=== PATIENT | male | born 1975 | race Caucasian/White ===

== ENCOUNTER 2018-04-09 09:27 | Emergency (ER) | payer SELFPAY, MEDICAID ==
[2018-04-09] MEDS: diazePAM 5 MG TABLET PO (10:23)
[2018-04-09] MEDS: ONDANSETRON PF 4 MG/2 ML VIAL. IV (10:24)
[2018-04-09] MEDS: fentaNYL PF VIAL 100 MCG/2 ML VIAL IV (10:26)
[2018-04-09 10:36] LABS: ADD MAN DIFF? NO
[2018-04-09 10:39] LABS: BASO % 1 % (0-3); EOS # 0.2 x10^3/uL (0.0-0.7); EOS % 3 % (0-3); HEMATOCRIT 33.6 % (39.0-53.0); HEMOGLOBIN 11.4 g/dL (13.0-17.5); LYMPH # 2.2 x10^3/uL (1.0-4.8); LYMPH % 27 % (24-48); MEAN CORPUSCULAR HEMOGLOBIN 29 pg (25-35); MEAN CORPUSCULAR HGB CONC 34 g/dL (31-37); MEAN CORPUSCULAR VOLUME 86 fL (79-100); MONO # 0.4 x10^3/uL (0.0-1.1); MONO % 5 % (0-9); NEUT # 5.5 x10^3uL (1.8-7.7); NEUT % 65 % (31-73); PLATELET COUNT 265 x10^3/uL (140-400); RED BLOOD COUNT 3.91 x10^6/uL (4.30-5.70); WHITE BLOOD COUNT 8.3 x10^3/uL (4.0-11.0)
[2018-04-09 10:46] LABS: BILIRUBIN,URINE NEGATIVE (NEG); CLARITY,URINE CLEAR; COLOR,URINE YELLOW; GLUCOSE,URINE NEGATIVE (NEG); NITRITE,URINE NEGATIVE (NEG); PH,URINE 5.5; PROTEIN,URINE NEGATIVE (NEG-TRACE); UROBILINOGEN,URINE 0.2 mg/dL (0.2 mg/dL)
[2018-04-09 10:52] LABS: AMPHETAMINE/METHAMPHETAMINE NEG (NEG); ANION GAP 11 (6-14); BARBITURATES NEG (NEG); BENZODIAZEPINES NEG (NEG); BLOOD UREA NITROGEN 17 mg/dL (8-26); BUN/CREATININE RATIO 17 (6-20); CALCIUM 9.2 mg/dL (8.5-10.1); CANNABINOIDS NEG (NEG); CARBON DIOXIDE 28 mmol/L (21-32); CHLORIDE 99 mmol/L (98-107); COCAINE NEG (NEG); ETHANOL, URINE NEG (NEG); GFR 81.2; GLUCOSE 146 mg/dL (70-99); METHADONE NEG (NEG); OPIATES NEG (NEG); PHENCYCLIDINE NEG (NEG); POTASSIUM 4.1 mmol/L (3.5-5.1); SODIUM 138 mmol/L (136-145)
[2018-04-09 10:53] LABS: ETHANOL < 10 mg/dL (0-10)
[2018-04-09 10:54] LABS: SQUAMOUS EPITHELIAL CELL,UR MOD /LPF
[2018-04-09 10:55] LABS: BACTERIA,URINE 0 /HPF (0-FEW); RBC,URINE 0 /HPF (0-2); WBC,URINE RARE /HPF (0-4)
[2018-04-09 10:58] LABS: ALBUMIN 3.2 g/dL (3.4-5.0); ALBUMIN/GLOBULIN RATIO 0.6 (1.0-1.7); ALK PHOS 89 U/L (46-116); ALT (SGPT) 44 U/L (16-63); AST (SGOT) 27 U/L (15-37); LIPASE 854 U/L (73-393); TOTAL BILIRUBIN 0.4 mg/dL (0.2-1.0); TOTAL PROTEIN 8.3 g/dL (6.4-8.2)
[2018-04-09] MEDS: CLINDAMYCIN HCL 150 MG CAPSULE. PO (12:39)
[2018-04-09] MEDS: HYDROcodone/APAP 5/325MG 1 TAB TABLET PO (12:40)
== END 2018-04-09 12:40 | disposition home or self-care (01) ==
LOC: ER 09:27
DX: M54.41 Lumbago with sciatica, right side (principal); L03.311 Cellulitis of abdominal wall; J44.9 Chronic obstructive pulmonary disease, unspecified; E78.00 Pure hypercholesterolemia, unspecified; I10 Essential (primary) hypertension; E11.40 Type 2 diabetes mellitus with diabetic neuropathy, unspecified; Z86.2 Personal history of diseases of the blood and blood-forming organs and certain disorders involving the immune mechanism
CPT/HCPCS: 36415; 74176; 80053; 80307; 81001; 83690; 85025; 96374; 96375; 99285-25; G0480; J2405; J3010

== ENCOUNTER 2018-09-01 11:05 | Outpatient (CLI) | payer OTHER ==
[2018-09-01] VITALS (12 sets, daily range): BP systolic 115–159; BP diastolic 49–73
[~2018-09-01] VITALS: Ht 167.6 cm; Wt 148.8 kg
[~2018-09-01 11:05] MED LIST: ASPI-630 PO; BUDE10.2 IH; CLIN150C14 PO; DIAZ5TAB PO; FERR325T58 PO; FLUT1DIS3 IH; HYDR-3164 PO; LISI1TAB7 PO; LORA10TA3 PO; LOVA20TA2 PO; PROVENTIL HFA6.7 GM IH
[2018-09-01 11:32] LABS: HEMATOCRIT 32.8 % (39.0-53.0); HEMOGLOBIN 11.3 g/dL (13.0-17.5); RED BLOOD COUNT 3.67 x10^6/uL (4.30-5.70); RED CELL DISTRIBUTION WIDTH 16.2 % (11.5-14.5); WHITE BLOOD COUNT 10.1 x10^3/uL (4.0-11.0)
[2018-09-01] MEDS ORDERED: PITA4TAB2 PO (11:34)
[2018-09-01] MEDS ORDERED: SITA1TAB11 PO (11:38)
[2018-09-01] MEDS ORDERED: METO25TA4 PO (11:38)
[2018-09-01] MEDS ORDERED: MULT1TAB52 PO (11:38)
[2018-09-01] MEDS ORDERED: INSU100I13 SQ (11:38)
[2018-09-01] MEDS ORDERED: CYCL10TA2 PO (11:38)
[2018-09-01] MEDS ORDERED: GABA-586 PO (11:38)
[2018-09-01 11:41] LABS: CREATININE 1.3 mg/dL (0.7-1.3); GFR 59.7; POTASSIUM 4.9 mmol/L (3.5-5.1)
[2018-09-01 11:46] LABS: PROTHROMBIN TIME PATIENT 13.3 SEC (11.7-14.0)
[2018-09-01] MEDS ORDERED: IOHEXOL 300 MG/ML 100ML VIAL. ONE (12:47)
[2018-09-01] MEDS ORDERED: LIDOCAINE 1% PF 30 ML VIAL. ONE (12:47)
[2018-09-01] MEDS ORDERED: MIDAZOLAM HCL/PF 2 MG/2 ML VIAL. ONE ×2 (13:08→13:22)
[2018-09-01] MEDS ORDERED: fentaNYL PF VIAL 100 MCG/2 ML VIAL ONE ×2 (13:08→13:22)
[2018-09-01] MEDS ORDERED: MIDAZOLAM HCL/PF 2 MG/2 ML VIAL. IV ONE (13:45)
[2018-09-01] MEDS ORDERED: fentaNYL PF VIAL 100 MCG/2 ML VIAL IV ONE (13:45)
[2018-09-01] MEDS ORDERED: LIDOCAINE 1% PF 30 ML VIAL. INJ ONE (13:45)
[2018-09-01] MEDS ORDERED: IOHEXOL 300 MG/ML 100ML VIAL. IART ONE (13:45)
[2018-09-01] MEDS ORDERED: CONTRAST GIVEN. MC PRN (14:00)
--- NOTE | 2018-09-01 14:45 | PDOC ---
MODERATE SEDATION ASSESSMENT RISKS/ALTERNATIVES Risks/Alternatives Risks and alternatives of this type of sedation and procedure discussed with: RISK/ALTERNATIVES: Patient H & P ON CHART H & P H & P on chart and reviewed for co-morbid conditions and appropriate labs. H&P ON CHART: Yes STATUS PREG STATUS ASSESSED: Yes MEDS/ALLERGIES REVIEWED Meds/Allergies Reviewed Medications and Allergies including time and route of recently administered narcotics and sedatives. MEDS/ALLERGIES REVIEWED: Yes ASA RATING ASA RATING: II AIRWAY ASSESSMENT Airway Assessment Airway patency, oral function limitations, presence of caps, crowns, dentures, partials, and ability to extend neck assessed. AIRWAY ASSESSMENT: Yes MALLAMPATI SCORE MALLAMPATI SCORE: II PRE-SEDATION ASSESSMENT PRE-SEDATION ASSESSMENT: Yes BRIE MACHUCA MD Sep 01, 2018 14:45
--- NOTE | 2018-09-02 16:49 | CARD ---
MR#: [id number] Date of Study: 09/01/2018 Ordering Physician: ILAN ZAMORANO Referring Physician: ILAN ZAMORANO Tech: RT Jorge Luis (R) APPROVED REPORT Technologist: RT Jorge Luis (R) Nurse: Rabia Westfall R.N. Procedure(s) performed: Moderate sedation: 36 minutes HISTORY The patient is a 43 year-old male with a history of : hypertension, family history of premature CAD, Patient is obese.. INDICATION The indication(s) include : The patient is having progressive exertional chest pain and was seen as a n outpatient. We discussed the situation options and risks and he was decided to proceed with a left heart catheterization., He is coming in for the procedure.. PROCEDURE NARRATIVE After obtaining informed consent the patient was taken to the [employer]. With the patient is supine position the right groin area was prepped and draped in the usual fashion. The area was infiltrated with lidocaine to obtain topical anesthesia. Using Seldinger technique a Cordis sheath was inserted into the femoral artery. A left Kimberly catheter was then advanced all the way to the root of the AO and once there we searche d the left coronary cusp for the left main. No left coronary was found. A view of the left coronary cusp was done. A right Kimberly catheter was then advanced and utilized to engage the right coronary os. Multiple views of the right coronary artery were then done. We found that the patient has aberrant co ronary anatomy with everything coming off the RCA. After the views of the coronaries were done a pigtail catheter was then used to perform a ventriculog milagros. The views were checked and I decided to terminate the procedure at this point. A view of the femoral artery was done following which the sheath was pulled and then an Angio-Seal co llagen plug was deployed. Following this it did not appear to be any bleeding. A dressing was applied to the groin and the abida ent was transferred to the recovery room in satisfactory condition after tolerating the procedure rat her well. Findings: Coronaries: There is no coronary coming off the left coronary cusp. The right coronary artery is a large vessel t hat gives 2 branches of the proximal segment one traverses across to the LAD and feeds the LAD. The L AD is normal and gives off small diagonals that are normal, from the proximal segment of the LAD a v essel runs off to the lateral wall along the AV groove and this probably represents the circumflex. It is a small size circumflex. The second branch that comes off the proximal RCA goes to the lateral wall and gives off an obtuse rusty nal and it is normal. The RCA then goes along its normal course and gives off the PDA and the postero lateral branch they are all normal and large. Ventriculogram: There appears to be concentric left ventricular hypertrophy and the left ventricular ejection fraction was estimated to be about 50% visually. The left ventricular end-diastolic pressure was 20 mmHg. There was no gradient across the aortic valve on the pullback. Conclusion This patient has aberrant coronary anatomy. There is no left main, everything is coming off the RCA a nd no significant plaquing or disease was seen. The left ventricle shows mild concentric left ventricular hypertrophy with a low normal ejection frac tion that was estimated to be about 50%. The patient has a left ventricular end-diastolic pressure of 20 mmHg. I would recommend medical treatment, diet, exercise, weight loss, and tight blood pressure control fo r this patient. Recommendations Medical Therapy Weight Loss Reduction Program Signed by : Ilan Zamorano MD Electronically Approved : 09/02/2018 16:48:26
== END 2018-09-01 16:43 | disposition home or self-care (01) ==
LOC: CCL 11:05
PROVIDERS: ATTEND Internal Medicine Cardiovascular Disease
DX: I20.0 Unstable angina (principal); I10 Essential (primary) hypertension; E66.9 Obesity, unspecified; Z79.899 Other long term (current) drug therapy; Z79.82 Long term (current) use of aspirin; Z79.4 Long term (current) use of insulin; Z79.01 Long term (current) use of anticoagulants; Z68.43 Body mass index [BMI] 50.0-59.9, adult
CPT/HCPCS: 36415; 80048; 85027; 85610; 93458; 93567; 99152; 99153; C1769; C1892; J1644; J2250; J3010; Q9967; C1771; G0269

== ENCOUNTER 2019-07-08 12:59 | Emergency (ER) | payer SELFPAY ==
[~2019-07-08] VITALS: Ht 167.6 cm; Wt 151.0 kg
[~2019-07-08 12:59] MED LIST changes: +ALBU2.5V8 IH; +CYCL10TA2 PO; +DOCU-109 PO; +GABA300C18 PO; +INSU100I13 SQ; +LISI1TAB20 PO; -LISI1TAB7 PO; +METO25TA4 PO; +MULT1TAB52 PO; +OXYC1TAB22 PO; +PITA4TAB2 PO; -PROVENTIL HFA6.7 GM IH; +SITA1TAB11 PO
[2019-07-08 13:15] VITALS: BP 161/76
[2019-07-08] MEDS ORDERED: HYDROcodone/APAP 5/325MG 1 TAB TABLET PO ONE (14:00)
--- NOTE | 2019-07-08 14:48 | RAD ---
HIP RIGHT 2V WITH PELVIS History: Hip dislocation. Limited bone detail due to body habitus. Severe degenerative narrowing at the right hip. No definite acute or displaced fracture is seen. [id number] degenerative narrowing at the left hip. No evidence of dislocation. Sacroiliac joints and pubic symphysis are grossly intact. IMPRESSION: 1. Degenerative joint disease, severe at the right hip. 2. No definite acute fracture or dislocation. Detail somewhat limited due to body habitus. If clinical concern for fracture persists, consider further evaluation with MRI. Electronically signed by: Huy Ram MD (07/08/2019 2:45 PM) [facility]
--- NOTE | 2019-07-08 15:11 | PHYS DOC ---
Past Medical History Past Medical History: Anemia, COPD, Diabetes-Type II, High Cholesterol, H ypertension, Other Additional Past Medical Histor: neuropathy, degenerative rheumatoid arthritis bilateral hip/back Past Surgical History: No Surgical History Alcohol Use: Occasionally Drug Use: None Adult General Chief Complaint Chief Complaint: HIP PAIN HPI HPI Patient is a 44 year old male] who presents with [right hip pain. Patient repor ts he has a history of several right hip issues, reports he has a lot of degeneration both hips, reports while he was walking today he felt his pain in his right hip where felt like his hepatitis. Reports he fell to go back and he says it has done this several times in the past. Reports after did last time today he feels like it has continued to have little increased pain. Denies any falls, denies any recent trauma. Denies any recent fever. Reports he has been told he needs replacement, he has not had insurance to be able to do this before, does report he has a primary care provider and they have changed his pain medications at home. States he has taken" before he came in, with some improvement.] Review of Systems Review of Systems Constitutional: Denies fever or chills [] Eyes: Denies change in visual acuity, redness, or eye pain [] HENT: Denies nasal congestion or sore throat [] Respiratory: Denies cough or shortness of breath [] Cardiovascular: No additional information not addressed in HPI [] GI: Denies abdominal pain, nausea, vomiting, bloody stools or diarrhea [] : Denies dysuria or hematuria [] Musculoskeletal: Denies back pain complains of right hip pain [] Integument: Denies rash or skin lesions [] Neurologic: Denies headache, focal weakness or sensory changes [] Endocrine: Denies polyuria or polydipsia [] All other systems were reviewed and found to be within normal limits, except as documented in this note. Current Medications Current Medications Current Medications Medications (Trade) Dose Ordered Sig/Carlotta Start Time Stop Time Status Last Admin Dose Admin Acetaminophen/ Hydrocodone Bitart (Lortab 5/325) 1 tab 1X ONCE 07/08/19 14:00 07/08/19 14:01 DC 07/08/19 14:06 1 TAB Allergies Allergies Allergies Coded Allergies Type Severity Reaction Last Updated Verified No Known Drug Allergies 10/09/18 No Physical Exam Physical Exam Constitutional: Well developed, well nourished, no acute distress, non-toxic appearance. [] HENT: Normocephalic, atraumatic, bilateral external ears normal, oropharynx moist, no oral exudates, nose normal. [] Eyes: PERRLA, EOMI, conjunctiva normal, no discharge. [] Neck: Normal range of motion, no tenderness, supple, no stridor. [] Cardiovascular:Heart rate regular rhythm, no murmur [] Lungs & Thorax: Bilateral breath sounds clear to auscultation [] Abdomen: Bowel sounds normal, soft, no tenderness, no masses, no pulsatile masses. [] Skin: Warm, dry, no erythema, no rash. [] Back: No tenderness, no CVA tenderness. [] Extremities: No tenderness, no cyanosis, no clubbing, ROM intact, no edema. Slightly decreased ROAM to right leg. No swelling.[] Neurologic: Alert and oriented X 3, normal motor function, normal sensory function, no focal deficits noted. [] Psychologic: Affect normal, judgement normal, mood normal. [] Current Patient Data Vital Signs Vital Signs Date Time Temp Pulse Resp B/P (MAP) Pulse Ox O2 Delivery O2 Flow Rate FiO2 07/08/19 14:06 15 98 Room Air 07/08/19 13:15 97.7 89 161/76 (104) 97.7 EKG EKG [] Radiology/Procedures Radiology/Procedures IMPRESSION: 1. Degenerative joint disease, severe at the right hip. 2. No definite acute fracture or dislocation. Detail somewhat limited due to body habitus. If clinical concern for fracture persists, consider further evaluation with MRI. Electronically signed by: Huy Ram MD (07/08/2019 2:45 PM) [facility] [] Course & Med Decision Making Course & Med Decision Making Pertinent Labs and Imaging studies reviewed. (See chart for details) [] Dragon Disclaimer Dragon Disclaimer This electronic medical record was generated, in whole or in part, using a voice recognition dictation system. Departure Departure Impression: Primary Impression: Right hip pain Disposition: 01 HOME, SELF-CARE Condition: GOOD Referrals: JONH CARLISLE DO (PCP) Patient Instructions: Hip Pain Additional Instructions: As we discussed, rest, take your home pain medications. Follow up with your primary care Try to get surgery for your hip as you have previously planned ASHLEY STEVENS APRN Jul 08, 2019 15:11
== END 2019-07-08 15:20 | disposition home or self-care (01) ==
LOC: ER 12:59
DX: M25.551 Pain in right hip (principal); J44.9 Chronic obstructive pulmonary disease, unspecified; E78.00 Pure hypercholesterolemia, unspecified; I10 Essential (primary) hypertension; E11.40 Type 2 diabetes mellitus with diabetic neuropathy, unspecified
CPT/HCPCS: 73502; 99284

== ENCOUNTER 2020-02-20 09:45 | Emergency (ER) | payer OTHER ==
[~2020-02-20] VITALS: Ht 167.6 cm; Wt 152.0 kg
[~2020-02-20 09:45] MED LIST changes: -ALBU2.5V8 IH; +PROVENTIL HFA6.7 GM IH
--- NOTE | 2020-02-20 10:49 | PHYS DOC ---
Past Medical History Past Medical History: Anemia, COPD, Diabetes-Type II, High Cholesterol, H ypertension, Other Additional Past Medical Histor: neuropathy, degenerative rheumatoid arthritis bilateral hip/back Past Surgical History: No Surgical History Smoking Status: Never Smoker Alcohol Use: Occasionally Drug Use: None General Adult EDM: Chief Complaint: CHEST PAIN HPI: HPI: Patient is a 44-year-old male with multiple medical problems including hypertension hyperlipidemia and diabetes who presents with a 2 to 3-day history of sharp left-sided chest pain. He denies any fever chills or sweats. He denies cough. He denies hemoptysis. He states the pain is made worse with movement and deep breath. He does state the pain radiates up into his shoulders. He denies any nausea vomiting or diaphoresis. [] Review of Systems: Review of Systems: Constitutional: Denies fever or chills. [] Eyes: Denies change in visual acuity. [] HENT: Denies nasal congestion or sore throat. [] Respiratory: Denies cough or shortness of breath. [] Cardiovascular: Per HPI. [] GI: Denies abdominal pain, nausea, vomiting, bloody stools or diarrhea. [] : Denies dysuria. [] Musculoskeletal: Denies back pain or joint pain. [] Integument: Denies rash. [] Neurologic: Denies headache, focal weakness or sensory changes. [] Endocrine: Denies polyuria or polydipsia. [] Lymphatic: Denies swollen glands. [] Psychiatric: Denies depression or anxiety. [] Heart Score: HEART Score for Chest Pain: HEART Score for Chest Pain Response (Comments) Value History Slighlty/Non-Suspicious 0 ECG Normal 0 Age >45 - < 65 1 Risk Factors >3 Risk Factors or Hx CAD 2 Troponin < Normal Limit 0 Total 3 Risk Factors: Risk Factors: DM, Current or recent (<one month) smoker, HTN, HLP, family history of CAD, obesity. Risk Scores: Score 0 - 3: 2.5% MACE over next 6 weeks - Discharge Home Score 4 - 6: 20.3% MACE over next 6 weeks - Admit for Clinical Observation Score 7 - 10: 72.7% MACE over next 6 weeks - Early Invasive Strategies Allergies: Allergies: Allergies Coded Allergies Type Severity Reaction Last Updated Verified No Known Drug Allergies 10/09/18 No Physical Exam: PE: Constitutional: Well developed, well nourished, no acute distress, non-toxic appearance. [] HENT: Normocephalic, atraumatic, bilateral external ears normal, oropharynx moist, no oral exudates, nose normal. [] Eyes: PERRLA, EOMI, conjunctiva normal, no discharge. [] Neck: Normal range of motion, no tenderness, supple, no stridor. [] Cardiovascular:Heart rate regular rhythm, no murmur [] Lungs & Thorax: Tender to palp left sternal border which reproduces pain [] Abdomen: Bowel sounds normal, soft, no tenderness, no masses, no pulsatile masses. [] Skin: Warm, dry, no erythema, no rash. [] Back: No tenderness, no CVA tenderness. [] Extremities: No tenderness, no cyanosis, no clubbing, ROM intact, no edema. [] Neurologic: Alert and oriented X 3, normal motor function, normal sensory function, no focal deficits noted. [] Psychologic: Anxious. [] Current Patient Data: Vital Signs: Vital Signs Date Time Temp Pulse Resp B/P (MAP) Pulse Ox O2 Delivery O2 Flow Rate FiO2 02/20/20 09:50 97.9 87 16 168/79 (108) 97 Room Air 97.9 EKG: EKG: EKG: Normal sinus rhythm rate of [address]-T changes [] Radiology/Procedures: Radiology/Procedures: [] Impression: STATUS: REG ER ORD. PHYSICIAN: GALILEO MONROY DO REASON: chest pain PROCEDURE: CHEST AP ONLY CHEST AP ONLY History: Chest pain Comparison: April 19, 2015 Findings: Single view of the chest is submitted. There is no new lobar consolidation, pleural fluid, or pneumothorax. Appearance of more prominent pericardial cardiac silhouette and mediastinal width may be accentuated by differences in technique. Impression: 1. Appearance of more prominent pericardial cardiac silhouette and mediastinal width may be accentuated by differences in technique, no infiltrate or pleural fluid identified. Course & Med Decision Making: Course & Med Decision Making Pertinent Labs and Imaging studies reviewed. (See chart for details) [ED course: Evaluation reveals an anxious 44-year-old male with reproducible left-sided chest pain. His troponin and EKG and d-dimer were all negative. His EKG was unrevealing. I reassured the patient that I do not believe this is a cardiac event. I will have the patient follow-up with his primary care physician. I will have him start on naproxen for symptom relief.] Kanchan Disclaimer: Kanchan Disclaimer: This electronic medical record was generated, in whole or in part, using a voice recognition dictation system. Departure Departure Impression: Primary Impression: Chest wall pain Disposition: HOME, SELF-CARE Condition: STABLE Referrals: JONH CARLISLE DO (PCP) Patient Instructions: Chest Pain (Nonspecific) Additional Instructions: Return to the emergency department with any new or concerning symptoms Scripts Naproxen (NAPROXEN) 500 Mg Tablet 1 TAB PO BID PRN for PAIN, #30 TAB 1 Refill Prov: GALILEO MONROY DO 02/20/20 GALILEO MONROY DO Feb 20, 2020 10:49
[2020-02-20 11:03] LABS: BASO % 0 % (0-3); EOS # 0.2 x10^3/uL (0.0-0.7); EOS % 3 % (0-3); HEMOGLOBIN 10.9 g/dL (13.0-17.5); LYMPH % 28 % (24-48); MEAN CORPUSCULAR HEMOGLOBIN 27 pg (25-35); MEAN CORPUSCULAR HGB CONC 32 g/dL (31-37); MEAN CORPUSCULAR VOLUME 84 fL (79-100); MONO # 0.3 x10^3/uL (0.0-1.1); MONO % 4 % (0-9); NEUT # 4.7 x10^3/uL (1.8-7.7); NEUT % 64 % (31-73); PLATELET COUNT 222 x10^3/uL (140-400); RED BLOOD COUNT 4.03 x10^6/uL (4.30-5.70); RED CELL DISTRIBUTION WIDTH 17.4 % (11.5-14.5); WHITE BLOOD COUNT 7.3 x10^3/uL (4.0-11.0)
--- NOTE | 2020-02-20 11:07 | RAD ---
CHEST AP ONLY History: Chest pain Comparison: April 19, 2015 Findings: Single view of the chest is submitted. There is no new lobar consolidation, pleural fluid, or pneumothorax. Appearance of more prominent pericardial cardiac silhouette and mediastinal width may be accentuated by differences in technique. Impression: 1. Appearance of more prominent pericardial cardiac silhouette and mediastinal width may be accentuated by differences in technique, no infiltrate or pleural fluid identified. Electronically signed by: Lefty Zamora MD (02/20/2020 11:04 AM) [id number]
--- NOTE | 2020-02-20 11:07 | EKG ---
[facility] [address] [place] [address] Test Date: 2020-02-20 Test Time: 09:54:12 Pat Name: MIAH CASTILLO Department: Room: Gender: M Supervisor Special Services: : 1975 Requested By: GALILEO MONROY Order Number: [id number] Reading MD: Choco Garcia Measurements Intervals [place] Rate: 86 P: 35 UT: 194 QRS: 56 QRSD: 84 T: 34 QT: 326 QTc: 393 Interpretive Statements SINUS RHYTHM NONSPECIFIC ST-T WAVE CHANGES. Electronically Signed On 02-20-2020 11:28:25 CDT by Choco Garcia
[2020-02-20 11:12] LABS: CALCIUM 9.2 mg/dL (8.5-10.1); CREATININE 0.9 mg/dL (0.7-1.3); GFR 90.8; POTASSIUM 4.7 mmol/L (3.5-5.1)
[2020-02-20 11:17] LABS: ALBUMIN 3.1 g/dL (3.4-5.0); ALBUMIN/GLOBULIN RATIO 0.6 (1.0-1.7); TOTAL BILIRUBIN 0.2 mg/dL (0.2-1.0)
[2020-02-20] MEDS ORDERED: KETOROLAC 30 MG/ML VIAL. IV ONE (11:20)
[2020-02-20 11:50] VITALS: BP 143/74
[2020-02-20] MEDS ORDERED: NAPR-514 PO (11:50)
== END 2020-02-20 12:18 | disposition home or self-care (01) ==
LOC: ER 09:45
DX: R07.89 Other chest pain (principal); J44.9 Chronic obstructive pulmonary disease, unspecified; E11.40 Type 2 diabetes mellitus with diabetic neuropathy, unspecified; E78.00 Pure hypercholesterolemia, unspecified; I10 Essential (primary) hypertension
CPT/HCPCS: 36415; 71045; 80053; 83880; 84484; 85025; 85379; 93005; 96374; 99285; J1885

== ENCOUNTER → 2020-04-17 | Outpatient (CLI) | payer MEDICAID, OTHER ==
[~2020-04-17] MED LIST changes: +MULT-445 PO; -MULT1TAB52 PO; +NAPR-514 PO; +ZOLPIDEM 5 MG TABLET. PO ONE
--- NOTE | 2020-04-19 11:23 | SLEEP ---
DATE OF STUDY: 04/17/2020 PROCEDURE: Sleep study. REFERRING PHYSICIAN: Nancy Jeffries MD PRIMARY CARE PHYSICIAN: Erik Elliott MD The patient is 44 years old who weighs 347 pounds with a BMI of 56. The patient's Emerson score was 13. The patient underwent split night study performed at [facility]. During the night study, the patient spent 449 minutes in bed and slept for 333 minutes with a sleep efficiency of 74%. Sleep latency was 95 minutes with a REM latency of 82 minutes. Sleep architecture showed normal stage 1 sleep and normal stage 2 sleep, increased slow wave and normal REM sleep. During the initial diagnostic portion of the study, the patient slept for 85 minutes. During that time, there were no obstructive, mixed or central apneas, but 39 hypopneas. The patient's AHI was 28 per hour. Supine AHI 28 per hour with a REM AHI of 60 per hour. Nocturnal oximetry study revealed a mean oxygen saturation of 94% with the lowest of 74%. A 11.6% of time oxygen saturation remained between 80% and 89%. EKG with a mean heart rate of 93 beats per minute. No sustained arrhythmias observed. PLMs were seen at index of 30 per hour and 5 per hour caused EEG arousals. The patient was started on CPAP at 5 cm water and titrated up to 15 cm water. At the final pressure, the patient slept for 46 minutes. The patient had supine sleep as well as REM sleep. The patient's AHI was reduced to 1 per hour and oxygen saturation remained above 91%. The patient used medium size full face mask. IMPRESSION: 1. Moderate obstructive sleep apnea, with worsening during REM sleep. Total AHI 28 per hour with a REM AHI of 60 per hour. 2. Nocturnal hypoxia secondary to obstructive sleep apnea, but resolved with CPAP. 3. Moderate periodic limb movements. RECOMMENDATIONS: 1. CPAP at 15 cm water completely eliminated the patient's sleep apnea and should be used on a nightly basis. 2. Follow up in 4-6 weeks to assess compliance with CPAP and to document clinical improvement. 3. Weight loss is strongly advised. 4. Avoid [employer] depressants. 5. Cautioned regarding driving until symptoms of sleep apnea resolve with the use of CPAP. 6. The patient should also be further evaluated for symptoms of restless legs during the day. TRACIE HERNADEZ MD DR: AYAKA/marina JOB#: [id number] / [id number] NANCY Sims MD, TERRY MD
== END | disposition home or self-care (01) ==
LOC: SLPLAB 18:45
PROVIDERS: ATTEND Internal Medicine Pulmonary Disease
DX: G47.33 Obstructive sleep apnea (adult) (pediatric) (principal); G47.61 Periodic limb movement disorder; R09.02 Hypoxemia
CPT/HCPCS: 95810

== ENCOUNTER 2020-05-23 16:36 | Emergency (ER) | payer MEDICAID ==
[~2020-05-23] VITALS: Ht 167.6 cm; Wt 159.0 kg
[~2020-05-23 16:36] MED LIST changes: -ZOLPIDEM 5 MG TABLET. PO ONE
[2020-05-23] MEDS ORDERED: oxyCODONE/APAP 10/325 1 TAB TABLET PO ONE (17:15)
[2020-05-23] MEDS ORDERED: KETOROLAC 60 MG/2 ML VIAL. IM ONE (17:15)
--- NOTE | 2020-05-23 17:41 | PHYS DOC ---
Past Medical History Past Medical History: Anemia, COPD, Diabetes-Type II, High Cholesterol, H ypertension, Other Additional Past Medical Histor: neuropathy, degenerative rheumatoid arthritis bilateral hip/back Past Surgical History: No Surgical History Smoking Status: Never Smoker Alcohol Use: Occasionally Drug Use: None General Adult EDM: Chief Complaint: HIP PAIN HPI: HPI: Patient is a 44 year old male presenting with hip pain. Patient history of chronic hip pain degenerative joint disease get sciatica chronic pain obesity takes Taylor at home. He tripped and bumped his right hip on the side of the door has a increased pain and tenderness in that area. His doctor recommended emergency room evaluation for pain control. No other injury no head injury no no new changes. No back injury just pinpoint injury at the lateral aspect of the right hip Review of Systems: Review of Systems: Constitutional: Denies fever or chills. [] Eyes: Denies change in visual acuity. [] HENT: Denies nasal congestion or sore throat. [] Respiratory: Denies cough or shortness of breath. [] Cardiovascular: Denies chest pain or edema. [] GI: Neurologic: Denies headache, focal weakness or sensory changes. [] Endocrine: Denies polyuria or polydipsia. [] Lymphatic: Denies swollen glands. [] Psychiatric: Denies depression or anxiety. [] Heart Score: Risk Factors: Risk Factors: DM, Current or recent (<one month) smoker, HTN, HLP, family history of CAD, obesity. Risk Scores: Score 0 - 3: 2.5% MACE over next 6 weeks - Discharge Home Score 4 - 6: 20.3% MACE over next 6 weeks - Admit for Clinical Observation Score 7 - 10: 72.7% MACE over next 6 weeks - Early Invasive Strategies Current Medications: Current Medications Medications (Trade) Dose Ordered Sig/Carlotta Start Time Stop Time Status Last Admin Dose Admin Ketorolac Tromethamine (Toradol Im) 30 mg 1X ONCE 05/23/20 17:15 05/23/20 17:18 DC 05/23/20 17:36 30 MG Oxycodone/ Acetaminophen (Percocet 10/325) 1 tab 1X ONCE 05/23/20 17:15 05/23/20 17:18 DC 05/23/20 17:36 1 TAB Allergies: Allergies: Allergies Coded Allergies Type Severity Reaction Last Updated Verified No Known Drug Allergies 10/09/18 No Physical Exam: PE: Constitutional: Well developed, over nourished, no acute distress, non-toxic appearance. [] HENT: Normocephalic, atraumatic, bilateral external ears normal, oropharynx moist, no oral exudates, nose normal. [] Eyes: PERRLA, EOMI, conjunctiva normal, no discharge. [] Neck: Normal range of motion, no tenderness, supple, no stridor. [] Pulmonary: Normal respiratory effort no increased work of breathing no obvious chest wall trauma Abdomen: Bowel sounds normal, soft, no tenderness, no masses, no pulsatile masses. [] Skin: Warm, dry, no erythema, no rash. [] Back: No tenderness, no CVA tenderness. [] Extremities: Pinpoint tenderness over the greater trochanter of the right hip Neurologic: Alert and oriented X 3, normal motor function, normal sensory function, no focal deficits noted. [] Psychologic: Affect normal, judgement normal, mood normal. [] Current Patient Data: Vital Signs: Vital Signs Date Time Temp Pulse Resp B/P (MAP) Pulse Ox O2 Delivery O2 Flow Rate FiO2 05/23/20 17:36 Room Air 05/23/20 17:00 98.4 92 18 165/74 (104) 97 98.4 EKG: EKG: [] Radiology/Procedures: Radiology/Procedures: [] Course & Med Decision Making: Course & Med Decision Making Pertinent Labs and Imaging studies reviewed. (See chart for details) 44-year-old male presenting with hip pain fairly minor trauma has baseline degenerative joint disease.' XRAY negative my read. Kanchan Disclaimer: Kanchan Disclaimer: This electronic medical record was generated, in whole or in part, using a voice recognition dictation system. Departure Departure Impression: Primary Impression: Hip pain Disposition: 01 HOME, SELF-CARE Condition: STABLE Patient Instructions: Contusion, [id number] Justicifation of Admission Dx: Justifications for Admission: Justification of Admission Dx: N/A TOÑA CHI MD May 23, 2020 17:41
--- NOTE | 2020-05-23 18:11 | RAD ---
Exam: Right hip 2 views INDICATION: Trauma TECHNIQUE: Frontal and frog-leg lateral views of the right hip Comparisons: None FINDINGS: Evaluation is limited secondary to body habitus. No displaced fractures are identified. There appears to be at least moderate degenerative change at the right hip joint. Soft tissues are unremarkable. IMPRESSION: No displaced fractures identified. Limitations as described above. Electronically signed by: Mohsen Krishnamurthy MD (05/23/2020 6:08 PM) [id number]
== END 2020-05-23 18:55 | disposition home or self-care (01) ==
LOC: ER 16:36
DX: M25.551 Pain in right hip (principal); G89.11 Acute pain due to trauma; M16.0 Bilateral primary osteoarthritis of hip; J44.9 Chronic obstructive pulmonary disease, unspecified; E11.40 Type 2 diabetes mellitus with diabetic neuropathy, unspecified; E78.00 Pure hypercholesterolemia, unspecified; I10 Essential (primary) hypertension; W01.198A Fall on same level from slipping, tripping and stumbling with subsequent striking against other object, initial encounter; Y93.89 Activity, other specified; Y92.89 Other specified places as the place of occurrence of the external cause; Y99.8 Other external cause status
CPT/HCPCS: 73502; 96372; 99283; J1885

== ENCOUNTER → 2020-06-13 | Outpatient (CLI) | payer MEDICAID ==
[2020-02-20 11:50] VITALS: BP_DIAS 74
[2020-05-23 17:00] VITALS: BP_SYST 165
[~2020-06-13] MED LIST changes: +AMOX1TAB61 PO
--- NOTE | 2020-06-13 10:06 | RAD ---
CT CHEST HIGH RESOLUTION WO INDICATION: HYPOXEMIA SOA Comparison: Radiograph 02/20/2020. TECHNIQUE: Unenhanced axial CT sections were obtained through the lungs and upper abdomen. Coronal and sagittal multiplanar reconstructions were also obtained. Unenhanced thin section axial images were obtained through the lungs. Inspiratory and expiratory supine high resolution images were obtained. PQRS compliance statement: One or more of the following individualized dose reduction techniques were utilized for this examination: 1. Automated exposure control 2. Adjustment of the mA and/or kV according to patient size 3. Use of iterative reconstruction technique FINDINGS: Lungs and Airways: No pulmonary nodule. No pulmonary mass or consolidation No endoluminal lesion. Inspiratory thin section images demonstrate no evidence of ground glass opacity, consolidation, bronchiectasis or interstitial lung disease. No pulmonary micronodules, cystic changes or pulmonary fibrosis. Expiratory high resolution images demonstrate extensive bilateral air trapping. Pleura: The pleural spaces are normal. Heart and Mediastinum: The visualized portions of the thyroid gland are normal in size and attenuation. No axillary or supraclavicular lymphadenopathy. Enlarged right mediastinal lymph node measuring 1.2 cm (series 5 image 29). Calcified mediastinal and right hilar lymph nodes consistent with remote granulomatous disease. Cardiomegaly. Coronary artery atherosclerotic disease. Aortic valve leaflet calcification. Normal caliber thoracic aorta Abdomen: Dystrophic left adrenal calcification may be due to old infection or trauma. Bones and Soft Tissues: Degenerative changes of the spine. The soft tissues of the chest wall are within normal limits. IMPRESSION: 1. No evidence of interstitial lung disease. 2. Extensive air trapping on expiratory phase imaging, likely due to small airways disease. 3. Coronary artery atherosclerotic disease. Aortic valve leaflet calcifications. 4. Single enlarged 1.2 cm mediastinal lymph node of uncertain clinical significance. Electronically signed by: Lefty Palmer MD (06/13/2020 10:02 AM) [id number]
== END | disposition home or self-care (01) ==
LOC: CT 09:20
PROVIDERS: ATTEND Internal Medicine Pulmonary Disease
DX: I35.8 Other nonrheumatic aortic valve disorders (principal); I25.10 Atherosclerotic heart disease of native coronary artery without angina pectoris; R59.9 Enlarged lymph nodes, unspecified
CPT/HCPCS: 71250

== ENCOUNTER 2020-06-25 20:26 | Inpatient (IN) | payer MEDICAID ==
[~2020-06-25] VITALS: Ht 167.6 cm; Wt 163.5 kg
[~2020-06-25 20:26] MED LIST changes: -AMOX1TAB61 PO
[2020-06-25] MEDS ORDERED: VANCOMYCIN PER PHARMACY MC PRN (21:00)
--- NOTE | 2020-06-25 21:06 | PHYS DOC ---
Past Medical History Past Medical History: Anemia, COPD, Diabetes-Type II, High Cholesterol, H ypertension, Other Additional Past Medical Histor: neuropathy, degenerative rheumatoid arthritis bilateral hip/back Past Surgical History: No Surgical History Smoking Status: Never Smoker Alcohol Use: Rarely Drug Use: None General Adult EDM: Chief Complaint: TOE PROBLEM HPI: HPI: Patient is a 45 year old male who presents with an open wound on the greater toe of the left lower extremity. Patient has a large callus on that toe that has formed a blister and now he has what looks like a stage II ulcer involving the plantar surface of the great toe on the left lower extremity. In addition patient reports that he has had increasing pain in that left lower extremity for the last 4 days. Patient noted the blister 4 days ago and today states that the ulcer on his foot seems to be getting bigger. He denies fever, chills, sweats, chest pain, shortness of breath, change in smell or taste, nausea, vomiting, diarrhea, melena, hematochezia. Patient does have a history of COPD and reports he has a chronic cough that is unchanged and chronic shortness of breath that is unchanged. Review of Systems: Review of Systems: Constitutional: Denies fever or chills. [] Eyes: Denies change in visual acuity. [] HENT: Denies nasal congestion or sore throat. [] Respiratory: Denies cough or shortness of breath. [] Cardiovascular: Denies chest pain or edema. [] GI: Denies abdominal pain, nausea, vomiting, bloody stools or diarrhea. [] : Denies dysuria. [] Musculoskeletal: Denies back pain or joint pain. [] Integument: Denies rash. [] Neurologic: Denies headache, focal weakness or sensory changes. [] Endocrine: Denies polyuria or polydipsia. [] Lymphatic: Denies swollen glands. [] Psychiatric: Denies depression or anxiety. [] Heart Score: Risk Factors: Risk Factors: DM, Current or recent (<one month) smoker, HTN, HLP, family history of CAD, obesity. Risk Scores: Score 0 - 3: 2.5% MACE over next 6 weeks - Discharge Home Score 4 - 6: 20.3% MACE over next 6 weeks - Admit for Clinical Observation Score 7 - 10: 72.7% MACE over next 6 weeks - Early Invasive Strategies Current Medications: Current Medications Medications (Trade) Dose Ordered Sig/Carlotta Start Time Stop Time Status Last Admin Dose Admin Piperacillin Sod/ Tazobactam Sod 4.5 gm/Sodium Chloride 100 ml @ 200 mls/hr 1X ONCE 06/25/20 21:00 06/25/20 21:29 UNV Sodium Chloride 500 ml @ 500 mls/hr 1X ONCE 06/25/20 21:00 06/25/20 21:59 UNV Vancomycin HCl (Vanco Per Pharmacy) 1 each PRN DAILY PRN 06/25/20 21:00 UNV Allergies: Allergies: Allergies Coded Allergies Type Severity Reaction Last Updated Verified No Known Drug Allergies 10/09/18 No Physical Exam: PE: Constitutional: Well developed, morbidly obese, well nourished, no acute distress, non-toxic appearance. [] HENT: Normocephalic, atraumatic, bilateral external ears normal, oropharynx moist, no oral exudates, nose normal. [] Eyes: PERRLA, EOMI, conjunctiva normal, no discharge. [] Neck: Normal range of motion, no tenderness, supple, no stridor. [] Cardiovascular:Heart rate regular rhythm, grade 2/6 systolic murmur, no shift of PMI, pulses 1 out of 2 the dorsalis pedis bilaterally [] Lungs & Thorax: Bilateral breath sounds clear to auscultation [] Abdomen: Bowel sounds normal, soft, no tenderness, no masses, no pulsatile masses. [] Skin: Warm, dry, patient with calluses on both feet as well as erythema and edema and calor of the foot calf which extends to just below the knee. No joint effusions were noted. There is no pain to range of motion of the joints and cells.. [] Back: No tenderness, no CVA tenderness. [] Extremities: No tenderness, no cyanosis, no clubbing, ROM intact, no edema. [] Neurologic: Alert and oriented X 3, normal motor function, normal sensory function, no focal deficits noted. [] Psychologic: Affect normal, judgement normal, mood normal. [] Current Patient Data: Vital Signs: Vital Signs Date Time Temp Pulse Resp B/P (MAP) Pulse Ox O2 Delivery O2 Flow Rate FiO2 06/25/20 20:35 97.6 84 12 161/95 (117) 95 Room Air 97.6 EKG: EKG: [] Radiology/Procedures: Radiology/Procedures: [] Course & Med Decision Making: Course & Med Decision Making Pertinent Labs and Imaging studies reviewed. (See chart for details) 2219-blood cultures were not obtained prior to antibiotic administration because the patient does not have any sirs criteria and it is unlikely to grow anything given the isolated infection to the skin. 2344-patient was seen and reevaluated. Patient responded well to pain medication provided here in the emergency department. We will continue some pain medication PRN basis. The patient was admitted to the hospital service. Zosyn and vancomycin was started empirically. [] Dragon Disclaimer: Dragon Disclaimer: This electronic medical record was generated, in whole or in part, using a voice recognition dictation system. Departure Departure Referrals: IFTIKHAR FERNANDEZ MD (PCP) Justicifation of Admission Dx: Justifications for Admission: Justification of Admission Dx: Yes Comments: Diabetic foot infection IVY VEGA MD Jun 25, 2020 21:05
[2020-06-25] MEDS ORDERED: IV NORMAL SALINE 500ML BAG 500 ML IV ONE (21:30)
[2020-06-25] MEDS ORDERED: PIPERACILLIN/TAZOBACTAM 4.5 GM in IV NORMAL SALINE 100ML 100 ML IV ONE (21:30)
[2020-06-25] MEDS ORDERED: VANCOMYCIN 2 GM in IV NORMAL SALINE 500ML BAG 500 ML IV ONE (22:00)
[2020-06-25 22:05] LABS: BASO # 0.1 x10^3/uL (0.0-0.2); BASO % 1 % (0-3); EOS # 0.4 x10^3/uL (0.0-0.7); EOS % 5 % (0-3); HEMATOCRIT 32.7 % (39.0-53.0); HEMOGLOBIN 10.8 g/dL (13.0-17.5); LYMPH # 1.7 x10^3/uL (1.0-4.8); LYMPH % 22 % (24-48); MEAN CORPUSCULAR HEMOGLOBIN 29 pg (25-35); MEAN CORPUSCULAR HGB CONC 33 g/dL (31-37); MEAN CORPUSCULAR VOLUME 87 fL (79-100); MONO # 0.4 x10^3/uL (0.0-1.1); MONO % 5 % (0-9); NEUT # 5.3 x10^3/uL (1.8-7.7); NEUT % 67 % (31-73); PLATELET COUNT 245 x10^3/uL (140-400); RED BLOOD COUNT 3.76 x10^6/uL (4.30-5.70); RED CELL DISTRIBUTION WIDTH 16.8 % (11.5-14.5)
[2020-06-25 22:14] LABS: PROTHROMBIN TIME PATIENT 13.8 SEC (11.7-14.0)
[2020-06-25 22:17] LABS: CALCIUM 9.3 mg/dL (8.5-10.1); CREATININE 1.2 mg/dL (0.7-1.3); GFR 64.9; POTASSIUM 4.1 mmol/L (3.5-5.1)
[2020-06-25 22:23] LABS: ALBUMIN/GLOBULIN RATIO 0.6 (1.0-1.7); TOTAL BILIRUBIN 0.3 mg/dL (0.2-1.0); TOTAL PROTEIN 7.9 g/dL (6.4-8.2)
[2020-06-25 22:47] LABS: BILIRUBIN,URINE NEGATIVE (NEG); CLARITY,URINE CLEAR; COLOR,URINE YELLOW; NITRITE,URINE NEGATIVE (NEG); PH,URINE 7.5 (<5.0-8.0); PROTEIN,URINE NEGATIVE (NEG-TRACE); UROBILINOGEN,URINE 0.2 mg/dL (0.2 mg/dL)
[2020-06-25 22:51] LABS: BACTERIA,URINE 0 /HPF (0-FEW); RBC,URINE 0 /HPF (0-2); SQUAMOUS EPITHELIAL CELL,UR FEW /LPF; WBC,URINE 0 /HPF (0-4)
[2020-06-26] MEDS ORDERED: PIPERACILLIN/TAZOBACTAM 4.5 GM in IV NORMAL SALINE 100ML 100 ML IV SCH
[2020-06-26] MEDS ORDERED: HYDROmorphone 2 MG/ML VIAL IV ONE
--- NOTE | 2020-06-26 00:21 | NUR ---
Pharmacy Vancomycin Dosing Note S:Consulted to monitor and dose vancomycin started 06/25/20. O:MIAH CASTILLO is a 45 year old M with Cellulitis DIABETIC FOOT INFECTION . Height: 5 feet, 6 inches Weight: 163.6 kg Panther Burn Body Weight: 63.80 Adjusted Body Weight: 103.72 Dosing Weight: Actual Other Antibiotics: ZOSYN 4.5 GM Q6H LABS: Last BUN: 23 Last Creatinine: 1.2 Creatinine Clearance: 111 mL/min Last WBC: 8 Last Procalcitonin: Tmax (past 24 hours): Microbiology: I/O: Drug Levels: Last level: on at Last dose given 06/25/20 at 2200 Vancomycin Dosing: Loading Dose: 2000 mg x1 Dosing Weight: Actual Target Trough: 10-20 A: Based on: WT AND CRCL P: 1. Begin Vancomycin 1500 mg IV q8h 2. Follow up Trough level on 06/26/20 at 2130 3. Pharmacy will continue to monitor, follow and adjust therapy as needed. CELENA COLLAZO RPH, 06/26/20 0021 Signed: 06/26/20 at 0021 by CELENA COLLAZO RPH PHA
--- NOTE | 2020-06-26 00:24 | RAD ---
INDICATION: Reason: CONCERN FOR OSTEOMYELITIS / Spl. Instructions: / History: , Soft tissue swelling COMPARISON: None. IMPRESSION: Left foot: 3 views obtained. Soft tissue swelling is identified at the first digit distally with apparent soft tissue defect within the region which could be secondary to an ulcer if the patient has evidence of ulcer in the region. Plantar calcaneal spur. No definite acute fracture or dislocation. If there is high clinical concern for osteomyelitis MRI or bone scan could better assess given the limits of plain film. Electronically signed by: Shar Hobbs MD (06/26/2020 12:22 AM) [id number]
--- NOTE | 2020-06-26 00:45 | NUR ---
ADMIT NOTE The patient, MIAH CASTILLO, 45 y/o, M admitted by MONIKA WHITE MD, was given written information regarding hospital policies, unit procedures and contact persons. Patient orientated to room, plan of care reviewed and admit packet discussed. Valuables were checked and left in room with patient. Patient now in chair, call light within reach and no other needs voiced at this time.
[2020-06-26 00:47] VITALS: BP 114/73
[2020-06-26] MEDS: PIPERACILLIN/TAZOBACTAM 4.5 GM in IV NORMAL SALINE 100ML 100 ML IV SCH ×4 (01:30→17:20)
[2020-06-26] MEDS ORDERED: VANCOMYCIN 1.5 GM in IV NORMAL SALINE 500ML BAG 500 ML IV SCH (06:00)
[2020-06-26 07:10] VITALS: BP 144/68
[2020-06-26] MEDS ORDERED: IV NORMAL SALINE 1000ML BAG 1,000 ML IV ONE (07:45)
--- NOTE | 2020-06-26 07:58 | PDOC1 ---
History and Physical Date of Admission Date of Admission DATE: 06/26/20 TIME: 07:44 Identification/Chief Complaint Chief Complaint Left toe pain Source Source: Patient History of Present Illness History of Present Illness Patient is a 45-year-old male with past medical history of type 2 diabetes and diabetic neuropathy, who presents to the ER with complaints of a painful blister to his left big toe for the past 4 days. States he noticed a blister to his left big toe 5 days ago, and this blister ruptured 4 days ago. Blister drained clear fluid, and patient denies any purulent drainage. He denies any known injury. He has treated his bloodstream with topical antibiotics, without any improvement. He reports sharp pain, 6/10. Denies any associated fever. Past Medical History Cardiovascular: HTN, Hyperlipidemia Pulmonary: COPD CENTRAL NERVOUS SYSTEM: Periperal neuropathy Hepatobiliary: No pertinent hx Musculoskeletal: low back pain Infectious disease: No pertinent hx Endocrine: Diabetes Past Surgical History Past Surgical History: No pertinent history Family History Family History: Hypertension Social History Smoke: No ALCOHOL: occassional Drugs: None Current Problem List Problems: (1) Diabetic foot ulcer Current Medications Current Medications Current Medications Sodium Chloride 500 ml @ 500 mls/hr 1X ONCE IV Last administered on 06/25/20at 21:43; Start 06/25/20 at 21:30; Stop 06/25/20 at 22:29; Status DC Vancomycin HCl (Vanco Per Pharmacy) 1 each PRN DAILY PRN MC SEE COMMENTS Last administered on 06/26/20at 00:20; Start 06/25/20 at 21:00 Piperacillin Sod/ Tazobactam Sod 4.5 gm/Sodium Chloride 100 ml @ 200 mls/hr 1X ONCE IV Last administered on 06/25/20at 21:32; Start 06/25/20 at 21:30; Stop 06/25/20 at 21:59; Status DC Vancomycin HCl 2 gm/Sodium Chloride 500 ml @ 250 mls/hr 1X ONCE IV Last administered on 06/25/20at 21:32; Start 06/25/20 at 22:00; Stop 06/25/20 at 23:59; Status DC Piperacillin Sod/ Tazobactam Sod 4.5 gm/Sodium Chloride 100 ml @ 200 mls/hr Q6HRS IV ; Start 06/26/20 at 00:00; Status Cancel Hydromorphone HCl (Dilaudid) 1 mg 1X ONCE IV Last administered on 06/26/20at 00:16; Start 06/26/20 at 00:00; Stop 06/26/20 at 00:01; Status DC Hydromorphone HCl (Dilaudid) 0.5 mg PRN Q4HRS PRN IV SEVERE PAIN 7-10; Start 06/25/20 at 23:45 Piperacillin Sod/ Tazobactam Sod 4.5 gm/Sodium Chloride 100 ml @ 200 mls/hr Q6HRS IV Last administered on 06/26/20at 05:58; Start 06/26/20 at 02:00 Vancomycin HCl 1.5 gm/Sodium Chloride 500 ml @ 250 mls/hr Q8HRS IV Last admin istered on 06/26/20at 06:43; Start 06/26/20 at 06:00 Vancomycin HCl (Vancomycin Trough Level) 1 each 1X ONCE MC ; Start 06/26/20 at 21:30; Stop 06/26/20 at 21:31 Active Scripts Active Naproxen 500 Mg Tablet 1 Tab PO BID PRN Percocet 10-325 Mg Tablet (Oxycodone/Acetaminophen) 1 Each Tablet 1 Tab PO PRN Q6HRS PRN 14 Days Colace (Docusate Sodium) 100 Mg Capsule 100 Mg PO PRN BID PRN 30 Days Reported [place] 5-325 Tablet (Acetaminophen/Hydrocodone Bitart) 1 Each Tablet 1 Tab PO PRN BID PRN Lantus Solostar (Insulin Glargine,Hum.rec.anlog) 100 Unit/1 Ml Insuln.pen 20 Unit SQ QHS Gabapentin (Gabapentin) 300 Mg Capsule 300 Mg PO TID Janumet 50-1,000 Mg Tablet (Sitagliptin Phos/Metformin Hcl) 1 Each Tablet 1 Tab PO BID Multivitamins (Multivitamin) 1 Each Tablet 1 Tab PO DAILY Metoprolol Tartrate 25 Mg Tablet 1 Tab PO BID Livalo (Pitavastatin Calcium) 4 Mg Tablet 4 Mg PO Aspirin 81 Mg Tab.chew 1 Tab PO DAILY Iron Supplement (Ferrous Sulfate) 325 Mg Tablet 65 Mg PO Proventil Hfa Inhaler (Albuterol Sulfate) 6.7 Gm Hfa.aer.ad 2 Puff IH BID Lisinopril-Hctz 20-25 Mg Tab (Lisinopril/Hydrochlorothiazide) 1 Each Tablet 1 Tab PO DAILY Lovastatin 20 Mg Tablet 10 Mg PO HS Symbicort 160-4.5 Mcg Inhaler (Budesonide/Formoterol Fumarate) 10.2 Gm Hfa.aer.ad 2 Puff IH BID Allergies Allergies: Coded Allergies: No Known Drug Allergies (Unverified , 10/09/18) ROS General: No: Chills, Fatigue PSYCHOLOGICAL ROS: No: Anxiety, Depression Eyes: No Blurry vision, No Loss of vision HEENT: No: Heacaches, Visual Changes, Hearing change, Epistaxis Respiratory: No: Cough, Pleuritic Pain, Shortness of breath Cardiovascular: No Chest Pain, No Palpitations, No Paroxysmal Noc. Dyspnea Gastrointestinal: No Nausea, No Vomiting Musculoskeletal: Yes Joint Pain, Yes Pain In: (Left 1st toe); No Joint Swelling Neurological: Yes Numbness/Tingling (Bilateral feet); No Visual Changes Skin: Yes Other (Blister to left 1st toe) Physical Exam General: Alert, Oriented X3, Cooperative, No acute distress HEENT: PERRLA, Mucous membr. moist/pink Lungs: Clear to auscultation, Normal air movement Heart: S1S2, RRR Cardiovascular: S1, S2 Abdomen: Normal bowel sounds, Other (Obese) Extremities: Normal pulses, Other (+1 edema bilaterally) Skin: Other (~2x3 cm superficial ulceration to lateral left big toe, minimal surounding erythema.) Neuro: Other (Diminished senation to bilateral feet) Psych/Mental Status: Mental status NL, Mood NL Vitals Vitals Vital Signs Date Time Temp Pulse Resp B/P (MAP) Pulse Ox O2 Delivery O2 Flow Rate FiO2 06/26/20 03:00 20 Room Air 06/26/20 00:47 98.4 98 114/73 (87) 94 98.4 Labs Labs Laboratory Tests Test 06/25/20 21:57 06/25/20 22:35 White Blood Count 8.0 x10^3/uL (4.0-11.0) Red Blood Count 3.76 x10^6/uL (4.30-5.70) Hemoglobin 10.8 g/dL (13.0-17.5) Hematocrit 32.7 % (39.0-53.0) Mean Corpuscular Volume 87 fL (79-100) Mean Corpuscular Hemoglobin 29 pg (25-35) Mean Corpuscular Hemoglobin Concent 33 g/dL (31-37) Red Cell Distribution Width 16.8 % (11.5-14.5) Platelet Count 245 x10^3/uL (140-400) Neutrophils (%) (Auto) 67 % (31-73) Lymphocytes (%) (Auto) 22 % (24-48) Monocytes (%) (Auto) 5 % (0-9) Eosinophils (%) (Auto) 5 % (0-3) Basophils (%) (Auto) 1 % (0-3) Neutrophils # (Auto) 5.3 x10^3/uL (1.8-7.7) Lymphocytes # (Auto) 1.7 x10^3/uL (1.0-4.8) Monocytes # (Auto) 0.4 x10^3/uL (0.0-1.1) Eosinophils # (Auto) 0.4 x10^3/uL (0.0-0.7) Basophils # (Auto) 0.1 x10^3/uL (0.0-0.2) Prothrombin Time 13.8 SEC (11.7-14.0) Prothromb Time International Ratio 1.1 (0.8-1.1) Sodium Level 136 mmol/L (136-145) Potassium Level 4.1 mmol/L (3.5-5.1) Chloride Level 99 mmol/L (98-107) Carbon Dioxide Level 31 mmol/L (21-32) Anion Gap 6 (6-14) Blood Urea Nitrogen 23 mg/dL (8-26) Creatinine 1.2 mg/dL (0.7-1.3) Estimated GFR (Cockcroft-Gault) 64.9 BUN/Creatinine Ratio 19 (6-20) Glucose Level 265 mg/dL (70-99) Lactic Acid Level 2.2 mmol/L (0.4-2.0) Calcium Level 9.3 mg/dL (8.5-10.1) Total Bilirubin 0.3 mg/dL (0.2-1.0) Aspartate Amino Transf (AST/SGOT) 12 U/L (15-37) Alanine Aminotransferase (ALT/SGPT) 20 U/L (16-63) Alkaline Phosphatase 79 U/L (46-116) Total Protein 7.9 g/dL (6.4-8.2) Albumin 3.0 g/dL (3.4-5.0) Albumin/Globulin Ratio 0.6 (1.0-1.7) Urine Collection Type Unknown Urine Color Yellow Urine Clarity Clear Urine pH 7.5 (<5.0-8.0) Urine Specific [place] 1.020 (1.000-1.030) Urine Protein Negative mg/dL (NEG-TRACE) Urine Glucose (UA) 100 mg/dL (NEG) Urine Ketones (Stick) Negative mg/dL (NEG) Urine Blood Negative (NEG) Urine Nitrite Negative (NEG) Urine Bilirubin Negative (NEG) Urine Urobilinogen Dipstick 0.2 mg/dL (0.2 mg/dL) Urine Leukocyte Esterase Negative (NEG) Urine RBC 0 /HPF (0-2) Urine WBC 0 /HPF (0-4) Urine Squamous Epithelial Cells Few /LPF Urine Bacteria 0 /HPF (0-FEW) Laboratory Tests Test 06/25/20 21:57 06/25/20 22:35 White Blood Count 8.0 x10^3/uL (4.0-11.0) Red Blood Count 3.76 x10^6/uL (4.30-5.70) Hemoglobin 10.8 g/dL (13.0-17.5) Hematocrit 32.7 % (39.0-53.0) Mean Corpuscular Volume 87 fL (79-100) Mean Corpuscular Hemoglobin 29 pg (25-35) Mean Corpuscular Hemoglobin Concent 33 g/dL (31-37) Red Cell Distribution Width 16.8 % (11.5-14.5) Platelet Count 245 x10^3/uL (140-400) Neutrophils (%) (Auto) 67 % (31-73) Lymphocytes (%) (Auto) 22 % (24-48) Monocytes (%) (Auto) 5 % (0-9) Eosinophils (%) (Auto) 5 % (0-3) Basophils (%) (Auto) 1 % (0-3) Neutrophils # (Auto) 5.3 x10^3/uL (1.8-7.7) Lymphocytes # (Auto) 1.7 x10^3/uL (1.0-4.8) Monocytes # (Auto) 0.4 x10^3/uL (0.0-1.1) Eosinophils # (Auto) 0.4 x10^3/uL (0.0-0.7) Basophils # (Auto) 0.1 x10^3/uL (0.0-0.2) Prothrombin Time 13.8 SEC (11.7-14.0) Prothromb Time International Ratio 1.1 (0.8-1.1) Sodium Level 136 mmol/L (136-145) Potassium Level 4.1 mmol/L (3.5-5.1) Chloride Level 99 mmol/L (98-107) Carbon Dioxide Level 31 mmol/L (21-32) Anion Gap 6 (6-14) Blood Urea Nitrogen 23 mg/dL (8-26) Creatinine 1.2 mg/dL (0.7-1.3) Estimated GFR (Cockcroft-Gault) 64.9 BUN/Creatinine Ratio 19 (6-20) Glucose Level 265 mg/dL (70-99) Lactic Acid Level 2.2 mmol/L (0.4-2.0) Calcium Level 9.3 mg/dL (8.5-10.1) Total Bilirubin 0.3 mg/dL (0.2-1.0) Aspartate Amino Transf (AST/SGOT) 12 U/L (15-37) Alanine Aminotransferase (ALT/SGPT) 20 U/L (16-63) Alkaline Phosphatase 79 U/L (46-116) Total Protein 7.9 g/dL (6.4-8.2) Albumin 3.0 g/dL (3.4-5.0) Albumin/Globulin Ratio 0.6 (1.0-1.7) Urine Collection Type Unknown Urine Color Yellow Urine Clarity Clear Urine pH 7.5 (<5.0-8.0) Urine Specific [place] 1.020 (1.000-1.030) Urine Protein Negative mg/dL (NEG-TRACE) Urine Glucose (UA) 100 mg/dL (NEG) Urine Ketones (Stick) Negative mg/dL (NEG) Urine Blood Negative (NEG) Urine Nitrite Negative (NEG) Urine Bilirubin Negative (NEG) Urine Urobilinogen Dipstick 0.2 mg/dL (0.2 mg/dL) Urine Leukocyte Esterase Negative (NEG) Urine RBC 0 /HPF (0-2) Urine WBC 0 /HPF (0-4) Urine Squamous Epithelial Cells Few /LPF Urine Bacteria 0 /HPF (0-FEW) VTE Prophylaxis Ordered VTE Prophylaxis Devices: No VTE Pharmacological Prophylaxi: Yes Assessment/Plan Assessment/Plan Diabetic foot ulcer and type 2 diabetes: We will treat empirically with vancomycin and Zosyn. Consults to wound care physician and wound care nurse. We will obtain arterial duplex to evaluate patient's blood supply. Patient superficial ulcer can likely be managed with wound care and switch to oral antibiotics, barring normal blood flow. Patient states he has a cardiology appointment on WednesdayJune 28, that if at all possible he would like to make. Justicifation of Admission Dx: Justifications for Admission: Justification of Admission Dx: Yes Problem Qualifiers (1) Diabetic foot ulcer: Diabetic foot ulcer location: toe Diabetes mellitus type: type 2 Laterality: left TARA HAYES MD Jun 26, 2020 07:58
[2020-06-26] MEDS: HYDROmorphone 2 MG/ML VIAL IV PRN ×2 (08:50→17:20)
[2020-06-26 09:29] LABS: BASO % 0 % (0-3); EOS # 0.3 x10^3/uL (0.0-0.7); EOS % 5 % (0-3); HEMATOCRIT 33.5 % (39.0-53.0); HEMOGLOBIN 10.9 g/dL (13.0-17.5); LYMPH % 16 % (24-48); MEAN CORPUSCULAR HEMOGLOBIN 28 pg (25-35); MEAN CORPUSCULAR HGB CONC 33 g/dL (31-37); MEAN CORPUSCULAR VOLUME 87 fL (79-100); MONO # 0.4 x10^3/uL (0.0-1.1); MONO % 6 % (0-9); NEUT # 4.5 x10^3/uL (1.8-7.7); NEUT % 74 % (31-73); PLATELET COUNT 216 x10^3/uL (140-400); RED BLOOD COUNT 3.83 x10^6/uL (4.30-5.70); RED CELL DISTRIBUTION WIDTH 17.2 % (11.5-14.5); WHITE BLOOD COUNT 6.2 x10^3/uL (4.0-11.0)
[2020-06-26 09:44] LABS: CALCIUM 8.8 mg/dL (8.5-10.1); GFR 80.1; POTASSIUM 4.3 mmol/L (3.5-5.1)
--- NOTE | 2020-06-26 09:52 | NUR ---
SW following. Discussed with RN, pt from home, room air, ada diet, gets around fine. Wound care consulted. SW will continue to follow.
[2020-06-26] MEDS ORDERED: DOCUSATE SODIUM 100 MG CAPSULE. PO PRN (10:15)
[2020-06-26] MEDS ORDERED: oxyCODONE/APAP 10/325 1 TAB TABLET PO PRN (10:15)
[2020-06-26] MEDS ORDERED: DEXTROSE 50% 25 GM / 50ML DISP.SYRIN. IV PRN (10:30)
[2020-06-26] MEDS: LISINOPRIL 20 MG TABLET PO SCH (10:41)
[2020-06-26] MEDS: hydroCHLOROthiazide 25 MG TABLET PO SCH (10:41)
[2020-06-26] MEDS: MULTIVITAMIN with MINERAL TABLET. PO SCH (10:41)
[2020-06-26] MEDS: ASPIRIN CHEWABLE 81 MG TABLET. PO SCH (10:41)
[2020-06-26] MEDS: METOPROLOL TART IMMED RELEASE 25 MG TABLET. PO SCH ×2 (10:42→21:09)
[2020-06-26 11:00] VITALS: BP 143/69
[2020-06-26] MEDS: BUDESONIDE 0.5 MG/2 ML NEBU. NEB SCH ×3 (11:00→19:55)
[2020-06-26] MEDS: ALBUTEROL SULFATE 2.5 MG/3 ML NEBU. NEB SCH ×3 (12:00→19:55)
[2020-06-26] MEDS: INSULIN LISPRO 300 UNITS/3 ML VIAL. SQ SCH ×4 (12:20→17:26)
--- NOTE | 2020-06-26 14:11 | RAD ---
EXAM: Left lower extremity arterial Doppler. HISTORY: Nonhealing left toe ulcer. COMPARISON: None. FINDINGS: Grayscale and Doppler analysis of the left lower extremity arterial system was performed. There are triphasic waveforms throughout the left lower extremity. There are no elevated peak systolic velocities suggestive of focal stenosis. The dorsalis pedis artery is patent. The peroneal artery is not visualized and may be diminutive or occluded. IMPRESSION: 1. The peroneal artery may be diminutive or occluded. Otherwise, no evidence of hemodynamically significant stenosis is identified. Electronically signed by: Morro Case MD (06/26/2020 2:08 PM) [id number]
[2020-06-26] MEDS: GABAPENTIN 300 MG CAPSULE. PO SCH ×2 (14:37→21:08)
--- NOTE | 2020-06-26 14:56 | NUR ---
Pt states the Percocet makes him feel "antsy" and states he does not want to take it anymore. Dr. Mendoza notified, telephone orders received.
[2020-06-26 15:00] VITALS: BP 118/56
[2020-06-26] MEDS ORDERED: MORPHINE SULFATE 4 MG/ML VIAL. IV PRN (15:00)
--- NOTE | 2020-06-26 15:30 | NUR ---
Wound Care Wound Type/Assessment: Left great toe DFU, present approx. 5 days. Per pt, began as a blister, pt has peripheral neuropathy and very little feeling in his feet. Pt was assessed with [facility], who trimmed some callus and macerated skin from the periwound, wound bed is clean with epithelial islands throughout, wound should heal with minimal wound care as long as pressure reduction can be maintained. Treatment Recommendations/Plan: Wound was photographed and redressed with Xeroform gauze, gauze and kerlix, recommended change every other day. Education provided: To pt re: daily foot checks, glycemic control and offloading of wound with Diabetic footwear. Offloading surface/device: pt has cane to reduce some pressure, but with pt's OA and limited mobility, he may be more of a fall risk with a half-shoe. Recommended Referrals/Tests: [facility] completed with CHARLES value of 1.22. Discharge Recommendations for dressings: Xeroform gauze, gauze and kerlix, recommended change every other day.
--- NOTE | 2020-06-26 15:49 | PDOC2 ---
CONSULT Date of Consult Date of Consult DATE: 06/26/20 TIME: 15:36 Reason for Consult Reason for Consult: Left great toe DFU with cellulitis History of Present Illness Reason for Visit: Pt states he noticed a blister to his left great toe 5 days ago. The blister ruptured 4 days ago and drained clear fluid. Patient states that shortly thereafter he began to notice swelling and redness of his left lower leg. Patient states that he has had diabetes for 4 years and was originally diagnosed with a hemoglobin A1c of 18. Patient states that his most recent hemoglobin A1c was 5.6. Patient states that he has had neuropathy of his bilateral feet and hands for multiple years prior to the diagnosis of diabetes. Patient denies history of other diabetic foot ulcers or difficulty with wound healing. Patient denies systemic symptoms including fever or body aches. Past Medical History Cardiovascular: HTN, Hyperlipidemia Pulmonary: COPD CENTRAL NERVOUS SYSTEM: Periperal neuropathy Hepatobiliary: No pertinent hx Musculoskeletal: low back pain Infectious disease: No pertinent hx Endocrine: Diabetes Past Surgical History Past Surgical History: No pertinent history Family History Family History: Hypertension Social History No ALCOHOL: occassional Drugs: None Current Problem List Problem List Left great toe DFU with associated cellulitis Current Medications Current Medications Current Medications Sodium Chloride 500 ml @ 500 mls/hr 1X ONCE IV Last administered on 06/25/20at 21:43; Start 06/25/20 at 21:30; Stop 06/25/20 at 22:29; Status DC Vancomycin HCl (Vanco Per Pharmacy) 1 each PRN DAILY PRN MC SEE COMMENTS Last administered on 06/26/20at 00:20; Start 06/25/20 at 21:00; Stop 06/26/20 at 09:37; Status DC Piperacillin Sod/ Tazobactam Sod 4.5 gm/Sodium Chloride 100 ml @ 200 mls/hr 1X ONCE IV Last administered on 06/25/20at 21:32; Start 06/25/20 at 21:30; Stop 06/25/20 at 21:59; Status DC Vancomycin HCl 2 gm/Sodium Chloride 500 ml @ 250 mls/hr 1X ONCE IV Last administered on 06/25/20at 21:32; Start 06/25/20 at 22:00; Stop 06/25/20 at 23:59; Status DC Piperacillin Sod/ Tazobactam Sod 4.5 gm/Sodium Chloride 100 ml @ 200 mls/hr Q6HRS IV ; Start 06/26/20 at 00:00; Status Cancel Hydromorphone HCl (Dilaudid) 1 mg 1X ONCE IV Last administered on 06/26/20at 00:16; Start 06/26/20 at 00:00; Stop 06/26/20 at 00:01; Status DC Hydromorphone HCl (Dilaudid) 0.5 mg PRN Q4HRS PRN IV SEVERE PAIN 7-10 Last administered on 06/26/20at 08:50; Start 06/25/20 at 23:45 Piperacillin Sod/ Tazobactam Sod 4.5 gm/Sodium Chloride 100 ml @ 200 mls/hr Q6HRS IV Last administered on 06/26/20at 12:17; Start 06/26/20 at 02:00 Vancomycin HCl 1.5 gm/Sodium Chloride 500 ml @ 250 mls/hr Q8HRS IV Last administered on 06/26/20at 06:43; Start 06/26/20 at 06:00; Stop 06/26/20 at 09:37; Status DC Vancomycin HCl (Vancomycin Trough Level) 1 each 1X ONCE MC ; Start 06/26/20 at 21:30; Stop 06/26/20 at 09:37; Status DC Sodium Chloride 1,000 ml @ 125 mls/hr 1X ONCE IV Last administered on 06/26/20at 08:50; Start 06/26/20 at 07:45; Stop 06/26/20 at 15:44 Aspirin (Aspirin Chewable) 81 mg DAILY PO Last administered on 06/26/20at 10:41; Start 06/26/20 at 12:00 Docusate Sodium (Colace) 100 mg PRN BID PRN PO CONSTIPATION; Start 06/26/20 at 10:15 Gabapentin (Neurontin) 300 mg TID PO Last administered on 06/26/20at 14:37; Start 06/26/20 at 14:00 Metoprolol Tartrate (Lopressor) 25 mg BID PO Last administered on 06/26/20at 10:42; Start 06/26/20 at 11:00 Oxycodone/ Acetaminophen (Percocet 10/325) 1 tab PRN Q6HRS PRN PO MODERATE TO SEVERE PAIN Last administered on 06/26/20at 12:16; Start 06/26/20 at 10:15 Non-Formulary Medication (Albuterol Sulfate (Proventil Hfa Inhaler)) 2 puff BID IH ; Start 06/26/20 at 21:00; Status UNV Non-Formulary Medication (Budesonide/ Formoterol Fumarate (Symbicort 160-4.5 Mcg Inhaler)) 2 puff BID IH ; Start 06/26/20 at 21:00; Status UNV Lisinopril (Prinivil) 20 mg DAILY PO Last administered on 06/26/20at 10:41; Start 06/26/20 at 11:00 Atorvastatin Calcium (Lipitor) 5 mg QHS PO ; Start 06/26/20 at 21:00 Multivitamins (Thera M Plus) 1 tab DAILY PO Last administered on 06/26/20at 10:41; Start 06/26/20 at 09:00 Lactobacillus Rhamnosus (Culturelle) 1 cap BID PO ; Start 06/26/20 at 21:00 Insulin Glargine (Lantus Syringe) 25 unit QHS SQ ; Start 06/26/20 at 21:00 Insulin Human Lispro (HumaLOG) 0-7 UNITS TIDWMEALS SQ Last administered on 06/26/20at 12:20; Start 06/26/20 at 12:00 Dextrose (Dextrose 50%-Water Syringe) 12.5 gm PRN Q15MIN PRN IV SEE COMMENTS; Start 06/26/20 at 10:30 Insulin Human Lispro (HumaLOG) 8 units TIDWMEALS SQ Last administered on 06/26/20at 12:21; Start 06/26/20 at 12:00 Hydrochlorothiazide (Hydrodiuril) 25 mg DAILY PO Last administered on 06/26/20at 10:41; Start 06/26/20 at 11:00 Albuterol Sulfate (Ventolin Neb Soln) 2.5 mg Q6HRS NEB Last administered on 06/26/20at 15:28; Start 06/26/20 at 12:00 Budesonide (Pulmicort) 0.5 mg RTBID NEB Last administered on 06/26/20at 15:28; Start 06/26/20 at 11:00 Oxycodone HCl (Roxicodone) 10 mg PRN Q4HRS PRN PO MODERATE PAIN; Start 06/26/20 at 15:00 Morphine Sulfate (Morphine Sulfate) 4 mg PRN Q4HRS PRN IV MODERATE TO SEVERE PAIN; Start 06/26/20 at 15:00 Active Scripts Active Naproxen 500 Mg Tablet 1 Tab PO BID PRN Percocet 10-325 Mg Tablet (Oxycodone/Acetaminophen) 1 Each Tablet 1 Tab PO PRN Q6HRS PRN 14 Days Colace (Docusate Sodium) 100 Mg Capsule 100 Mg PO PRN BID PRN 30 Days Reported [place] 5-325 Tablet (Acetaminophen/Hydrocodone Bitart) 1 Each Tablet 1 Tab PO PRN BID PRN Lantus Solostar (Insulin Glargine,Hum.rec.anlog) 100 Unit/1 Ml Insuln.pen 20 Unit SQ QHS Gabapentin (Gabapentin) 300 Mg Capsule 300 Mg PO TID Janumet 50-1,000 Mg Tablet (Sitagliptin Phos/Metformin Hcl) 1 Each Tablet 1 Tab PO BID Multivitamins (Multivitamin) 1 Each Tablet 1 Tab PO DAILY Metoprolol Tartrate 25 Mg Tablet 1 Tab PO BID Livalo (Pitavastatin Calcium) 4 Mg Tablet 4 Mg PO Aspirin 81 Mg Tab.chew 1 Tab PO DAILY Iron Supplement (Ferrous Sulfate) 325 Mg Tablet 65 Mg PO Proventil Hfa Inhaler (Albuterol Sulfate) 6.7 Gm Hfa.aer.ad 2 Puff IH BID Lisinopril-Hctz 20-25 Mg Tab (Lisinopril/Hydrochlorothiazide) 1 Each Tablet 1 Tab PO DAILY Lovastatin 20 Mg Tablet 10 Mg PO HS Symbicort 160-4.5 Mcg Inhaler (Budesonide/Formoterol Fumarate) 10.2 Gm Hfa.aer.ad 2 Puff IH BID Allergies Allergies: Coded Allergies: No Known Drug Allergies (Unverified , 10/09/18) ROS Review of System Patient states that he is feeling well. Patient states that he does have generalized pain associated with his osteoarthritis. Patient states that he typically uses hydrocodone 10/325 2 times daily to manage his pain. Patient states that he uses Celebrex to manage his nerve pain in his hands and feet. Patient denies cough or shortness of breath. Patient states that he has a good appetite and has been eating and drinking well without nausea, vomiting or diarrhea. Patient states that he has been sleeping okay and has not experienced any mood changes. Physical Exam Physical Exam Patient awake and alert 45-year-old male in no apparent distress. Patient is oriented to person, place and time and is pleasant in conversation. Patient is a good historian. Respirations are even and unlabored. Patient is on room air not requiring supplemental oxygen. Body habitus is obese. Abdomen is soft, obese, nondistended and nontender to palpation. Skin is warm, dry and pink. The left lower extremity does reveal increased erythema with mild warmth to touch. The left great toe, lateral aspect has a 3 x 2 x 0.1 cm open ul ceration. Surrounding tissue with callus formation and loose epithelial tissue. Callus and nonviable tissue removed with sterile scissors and sterile curette. No bleeding occurred with procedure and patient denied pain. Wound bed is 100% granulation. There is moderate serosanguineous drainage on the previous dressing. No odor following cleansing. Vitals VITALS Vital Signs Date Time Temp Pulse Resp B/P (MAP) Pulse Ox O2 Delivery O2 Flow Rate FiO2 06/26/20 15:30 97 Room Air 06/26/20 11:00 98.4 80 18 143/69 (93) 98.4 Labs Labs Laboratory Tests Test 06/25/20 21:57 06/25/20 22:35 06/26/20 07:43 06/26/20 09:10 White Blood Count 8.0 x10^3/uL (4.0-11.0) 6.2 x10^3/uL (4.0-11.0) Red Blood Count 3.76 x10^6/uL (4.30-5.70) 3.83 x10^6/uL (4.30-5.70) Hemoglobin 10.8 g/dL (13.0-17.5) 10.9 g/dL (13.0-17.5) Hematocrit 32.7 % (39.0-53.0) 33.5 % (39.0-53.0) Mean Corpuscular Volume 87 fL (79-100) 87 fL (79-100) Mean Corpuscular Hemoglobin 29 pg (25-35) 28 pg (25-35) Mean Corpuscular Hemoglobin Concent 33 g/dL (31-37) 33 g/dL (31-37) Red Cell Distribution Width 16.8 % (11.5-14.5) 17.2 % (11.5-14.5) Platelet Count 245 x10^3/uL (140-400) 216 x10^3/uL (140-400) Neutrophils (%) (Auto) 67 % (31-73) 74 % (31-73) Lymphocytes (%) (Auto) 22 % (24-48) 16 % (24-48) Monocytes (%) (Auto) 5 % (0-9) 6 % (0-9) Eosinophils (%) (Auto) 5 % (0-3) 5 % (0-3) Basophils (%) (Auto) 1 % (0-3) 0 % (0-3) Neutrophils # (Auto) 5.3 x10^3/uL (1.8-7.7) 4.5 x10^3/uL (1.8-7.7) Lymphocytes # (Auto) 1.7 x10^3/uL (1.0-4.8) 1.0 x10^3/uL (1.0-4.8) Monocytes # (Auto) 0.4 x10^3/uL (0.0-1.1) 0.4 x10^3/uL (0.0-1.1) Eosinophils # (Auto) 0.4 x10^3/uL (0.0-0.7) 0.3 x10^3/uL (0.0-0.7) Basophils # (Auto) 0.1 x10^3/uL (0.0-0.2) 0.0 x10^3/uL (0.0-0.2) Prothrombin Time 13.8 SEC (11.7-14.0) Prothromb Time International Ratio 1.1 (0.8-1.1) Sodium Level 136 mmol/L (136-145) 138 mmol/L (136-145) Potassium Level 4.1 mmol/L (3.5-5.1) 4.3 mmol/L (3.5-5.1) Chloride Level 99 mmol/L (98-107) 99 mmol/L (98-107) Carbon Dioxide Level 31 mmol/L (21-32) 33 mmol/L (21-32) Anion Gap 6 (6-14) 6 (6-14) Blood Urea Nitrogen 23 mg/dL (8-26) 19 mg/dL (8-26) Creatinine 1.2 mg/dL (0.7-1.3) 1.0 mg/dL (0.7-1.3) Estimated GFR (Cockcroft-Gault) 64.9 80.1 BUN/Creatinine Ratio 19 (6-20) Glucose Level 265 mg/dL (70-99) 226 mg/dL (70-99) Lactic Acid Level 2.2 mmol/L (0.4-2.0) 1.5 mmol/L (0.4-2.0) Calcium Level 9.3 mg/dL (8.5-10.1) 8.8 mg/dL (8.5-10.1) Total Bilirubin 0.3 mg/dL (0.2-1.0) Aspartate Amino Transf (AST/SGOT) 12 U/L (15-37) Alanine Aminotransferase (ALT/SGPT) 20 U/L (16-63) Alkaline Phosphatase 79 U/L (46-116) Total Protein 7.9 g/dL (6.4-8.2) Albumin 3.0 g/dL (3.4-5.0) Albumin/Globulin Ratio 0.6 (1.0-1.7) Urine Collection Type Unknown Urine Color Yellow Urine Clarity Clear Urine pH 7.5 (<5.0-8.0) Urine Specific [place] 1.020 (1.000-1.030) Urine Protein Negative mg/dL (NEG-TRACE) Urine Glucose (UA) 100 mg/dL (NEG) Urine Ketones (Stick) Negative mg/dL (NEG) Urine Blood Negative (NEG) Urine Nitrite Negative (NEG) Urine Bilirubin Negative (NEG) Urine Urobilinogen Dipstick 0.2 mg/dL (0.2 mg/dL) Urine Leukocyte Esterase Negative (NEG) Urine RBC 0 /HPF (0-2) Urine WBC 0 /HPF (0-4) Urine Squamous Epithelial Cells Few /LPF Urine Bacteria 0 /HPF (0-FEW) Glucose (Fingerstick) 168 mg/dL (70-99) Test 06/26/20 11:38 Glucose (Fingerstick) 198 mg/dL (70-99) Laboratory Tests Test 06/25/20 21:57 06/25/20 22:35 06/26/20 07:43 06/26/20 09:10 White Blood Count 8.0 x10^3/uL (4.0-11.0) 6.2 x10^3/uL (4.0-11.0) Red Blood Count 3.76 x10^6/uL (4.30-5.70) 3.83 x10^6/uL (4.30-5.70) Hemoglobin 10.8 g/dL (13.0-17.5) 10.9 g/dL (13.0-17.5) Hematocrit 32.7 % (39.0-53.0) 33.5 % (39.0-53.0) Mean Corpuscular Volume 87 fL (79-100) 87 fL (79-100) Mean Corpuscular Hemoglobin 29 pg (25-35) 28 pg (25-35) Mean Corpuscular Hemoglobin Concent 33 g/dL (31-37) 33 g/dL (31-37) Red Cell Distribution Width 16.8 % (11.5-14.5) 17.2 % (11.5-14.5) Platelet Count 245 x10^3/uL (140-400) 216 x10^3/uL (140-400) Neutrophils (%) (Auto) 67 % (31-73) 74 % (31-73) Lymphocytes (%) (Auto) 22 % (24-48) 16 % (24-48) Monocytes (%) (Auto) 5 % (0-9) 6 % (0-9) Eosinophils (%) (Auto) 5 % (0-3) 5 % (0-3) Basophils (%) (Auto) 1 % (0-3) 0 % (0-3) Neutrophils # (Auto) 5.3 x10^3/uL (1.8-7.7) 4.5 x10^3/uL (1.8-7.7) Lymphocytes # (Auto) 1.7 x10^3/uL (1.0-4.8) 1.0 x10^3/uL (1.0-4.8) Monocytes # (Auto) 0.4 x10^3/uL (0.0-1.1) 0.4 x10^3/uL (0.0-1.1) Eosinophils # (Auto) 0.4 x10^3/uL (0.0-0.7) 0.3 x10^3/uL (0.0-0.7) Basophils # (Auto) 0.1 x10^3/uL (0.0-0.2) 0.0 x10^3/uL (0.0-0.2) Prothrombin Time 13.8 SEC (11.7-14.0) Prothromb Time International Ratio 1.1 (0.8-1.1) Sodium Level 136 mmol/L (136-145) 138 mmol/L (136-145) Potassium Level 4.1 mmol/L (3.5-5.1) 4.3 mmol/L (3.5-5.1) Chloride Level 99 mmol/L (98-107) 99 mmol/L (98-107) Carbon Dioxide Level 31 mmol/L (21-32) 33 mmol/L (21-32) Anion Gap 6 (6-14) 6 (6-14) Blood Urea Nitrogen 23 mg/dL (8-26) 19 mg/dL (8-26) Creatinine 1.2 mg/dL (0.7-1.3) 1.0 mg/dL (0.7-1.3) Estimated GFR (Cockcroft-Gault) 64.9 80.1 BUN/Creatinine Ratio 19 (6-20) Glucose Level 265 mg/dL (70-99) 226 mg/dL (70-99) Lactic Acid Level 2.2 mmol/L (0.4-2.0) 1.5 mmol/L (0.4-2.0) Calcium Level 9.3 mg/dL (8.5-10.1) 8.8 mg/dL (8.5-10.1) Total Bilirubin 0.3 mg/dL (0.2-1.0) Aspartate Amino Transf (AST/SGOT) 12 U/L (15-37) Alanine Aminotransferase (ALT/SGPT) 20 U/L (16-63) Alkaline Phosphatase 79 U/L (46-116) Total Protein 7.9 g/dL (6.4-8.2) Albumin 3.0 g/dL (3.4-5.0) Albumin/Globulin Ratio 0.6 (1.0-1.7) Urine Collection Type Unknown Urine Color Yellow Urine Clarity Clear Urine pH 7.5 (<5.0-8.0) Urine Specific [place] 1.020 (1.000-1.030) Urine Protein Negative mg/dL (NEG-TRACE) Urine Glucose (UA) 100 mg/dL (NEG) Urine Ketones (Stick) Negative mg/dL (NEG) Urine Blood Negative (NEG) Urine Nitrite Negative (NEG) Urine Bilirubin Negative (NEG) Urine Urobilinogen Dipstick 0.2 mg/dL (0.2 mg/dL) Urine Leukocyte Esterase Negative (NEG) Urine RBC 0 /HPF (0-2) Urine WBC 0 /HPF (0-4) Urine Squamous Epithelial Cells Few /LPF Urine Bacteria 0 /HPF (0-FEW) Glucose (Fingerstick) 168 mg/dL (70-99) Test 06/26/20 11:38 Glucose (Fingerstick) 198 mg/dL (70-99) Assessment/Plan Assessment/Plan Left great toe DFU with associated cellulitis with no evidence of PAD. -Callus and loose epithelial removed at bedside. No bleeding occurred and patient did not have painful symptoms. -Patient currently on vancomycin and Zosyn per Primary -Arterial Doppler done on 06/26/2020 revealed "triphasic waveforms throughout the left lower extremity. The dorsalis pedis artery is patent. The peroneal a rtery is not visualized and may be diminutive or occluded." -CHARLES of the left side obtained today and revealed a reading of 1.22 per [place] flow. This is consistent with findings of the arterial Doppler. -To wound: Cleanse and pat dry. Apply skin prep to surrounding tissue. Cover with Xeroform and secure with Kerlix. Change every other day or as needed if dressing loose or saturated. -Recommend patient offload as much as possible. If wound stagnates or worsen would recommend offloading shoe with ambulation. Upon discharge we can continue to follow the patient at the wound care center. Thank you for the consult. DIANA LAMBERT [employer] Jun 26, 2020 15:49
[2020-06-26] MEDS: oxyCODONE IR 5 MG TABLET PO PRN ×2 (16:09→22:49)
--- NOTE | 2020-06-26 18:56 | PDOC ---
PROGRESS NOTES Date of Service: DATE: 06/26/20 TIME: 18:55 Vitals Vitals Vital Signs Date Time Temp Pulse Resp B/P (MAP) Pulse Ox O2 Delivery O2 Flow Rate FiO2 06/26/20 18:10 Room Air 06/26/20 15:30 97 06/26/20 15:00 98.3 72 16 118/56 (76) 98.3 Physical Exam General: Alert, Oriented X3, Cooperative, No acute distress Lungs: Clear Abdomen: Normal bowel sounds, Other (Obese) Extremities: Normal pulses, Other (+1 edema bilaterally) Skin: Other (~2x3 cm superficial ulceration to lateral left big toe, minimal surounding erythema.) Labs LABS Laboratory Tests Test 06/25/20 21:57 06/25/20 22:35 06/26/20 07:43 06/26/20 09:10 White Blood Count 8.0 x10^3/uL (4.0-11.0) 6.2 x10^3/uL (4.0-11.0) Red Blood Count 3.76 x10^6/uL (4.30-5.70) 3.83 x10^6/uL (4.30-5.70) Hemoglobin 10.8 g/dL (13.0-17.5) 10.9 g/dL (13.0-17.5) Hematocrit 32.7 % (39.0-53.0) 33.5 % (39.0-53.0) Mean Corpuscular Volume 87 fL (79-100) 87 fL (79-100) Mean Corpuscular Hemoglobin 29 pg (25-35) 28 pg (25-35) Mean Corpuscular Hemoglobin Concent 33 g/dL (31-37) 33 g/dL (31-37) Red Cell Distribution Width 16.8 % (11.5-14.5) 17.2 % (11.5-14.5) Platelet Count 245 x10^3/uL (140-400) 216 x10^3/uL (140-400) Neutrophils (%) (Auto) 67 % (31-73) 74 % (31-73) Lymphocytes (%) (Auto) 22 % (24-48) 16 % (24-48) Monocytes (%) (Auto) 5 % (0-9) 6 % (0-9) Eosinophils (%) (Auto) 5 % (0-3) 5 % (0-3) Basophils (%) (Auto) 1 % (0-3) 0 % (0-3) Neutrophils # (Auto) 5.3 x10^3/uL (1.8-7.7) 4.5 x10^3/uL (1.8-7.7) Lymphocytes # (Auto) 1.7 x10^3/uL (1.0-4.8) 1.0 x10^3/uL (1.0-4.8) Monocytes # (Auto) 0.4 x10^3/uL (0.0-1.1) 0.4 x10^3/uL (0.0-1.1) Eosinophils # (Auto) 0.4 x10^3/uL (0.0-0.7) 0.3 x10^3/uL (0.0-0.7) Basophils # (Auto) 0.1 x10^3/uL (0.0-0.2) 0.0 x10^3/uL (0.0-0.2) Prothrombin Time 13.8 SEC (11.7-14.0) Prothromb Time International Ratio 1.1 (0.8-1.1) Sodium Level 136 mmol/L (136-145) 138 mmol/L (136-145) Potassium Level 4.1 mmol/L (3.5-5.1) 4.3 mmol/L (3.5-5.1) Chloride Level 99 mmol/L (98-107) 99 mmol/L (98-107) Carbon Dioxide Level 31 mmol/L (21-32) 33 mmol/L (21-32) Anion Gap 6 (6-14) 6 (6-14) Blood Urea Nitrogen 23 mg/dL (8-26) 19 mg/dL (8-26) Creatinine 1.2 mg/dL (0.7-1.3) 1.0 mg/dL (0.7-1.3) Estimated GFR (Cockcroft-Gault) 64.9 80.1 BUN/Creatinine Ratio 19 (6-20) Glucose Level 265 mg/dL (70-99) 226 mg/dL (70-99) Lactic Acid Level 2.2 mmol/L (0.4-2.0) 1.5 mmol/L (0.4-2.0) Calcium Level 9.3 mg/dL (8.5-10.1) 8.8 mg/dL (8.5-10.1) Total Bilirubin 0.3 mg/dL (0.2-1.0) Aspartate Amino Transf (AST/SGOT) 12 U/L (15-37) Alanine Aminotransferase (ALT/SGPT) 20 U/L (16-63) Alkaline Phosphatase 79 U/L (46-116) Total Protein 7.9 g/dL (6.4-8.2) Albumin 3.0 g/dL (3.4-5.0) Albumin/Globulin Ratio 0.6 (1.0-1.7) Urine Collection Type Unknown Urine Color Yellow Urine Clarity Clear Urine pH 7.5 (<5.0-8.0) Urine Specific [place] 1.020 (1.000-1.030) Urine Protein Negative mg/dL (NEG-TRACE) Urine Glucose (UA) 100 mg/dL (NEG) Urine Ketones (Stick) Negative mg/dL (NEG) Urine Blood Negative (NEG) Urine Nitrite Negative (NEG) Urine Bilirubin Negative (NEG) Urine Urobilinogen Dipstick 0.2 mg/dL (0.2 mg/dL) Urine Leukocyte Esterase Negative (NEG) Urine RBC 0 /HPF (0-2) Urine WBC 0 /HPF (0-4) Urine Squamous Epithelial Cells Few /LPF Urine Bacteria 0 /HPF (0-FEW) Glucose (Fingerstick) 168 mg/dL (70-99) Test 06/26/20 11:38 06/26/20 16:52 Glucose (Fingerstick) 198 mg/dL (70-99) 202 mg/dL (70-99) Comment Review of Relevant I have reviewed the following items jeanne (where applicable) has been applied. Labs Laboratory Tests Test 06/25/20 21:57 06/25/20 22:35 06/26/20 07:43 06/26/20 09:10 White Blood Count 8.0 x10^3/uL (4.0-11.0) 6.2 x10^3/uL (4.0-11.0) Red Blood Count 3.76 x10^6/uL (4.30-5.70) 3.83 x10^6/uL (4.30-5.70) Hemoglobin 10.8 g/dL (13.0-17.5) 10.9 g/dL (13.0-17.5) Hematocrit 32.7 % (39.0-53.0) 33.5 % (39.0-53.0) Mean Corpuscular Volume 87 fL (79-100) 87 fL (79-100) Mean Corpuscular Hemoglobin 29 pg (25-35) 28 pg (25-35) Mean Corpuscular Hemoglobin Concent 33 g/dL (31-37) 33 g/dL (31-37) Red Cell Distribution Width 16.8 % (11.5-14.5) 17.2 % (11.5-14.5) Platelet Count 245 x10^3/uL (140-400) 216 x10^3/uL (140-400) Neutrophils (%) (Auto) 67 % (31-73) 74 % (31-73) Lymphocytes (%) (Auto) 22 % (24-48) 16 % (24-48) Monocytes (%) (Auto) 5 % (0-9) 6 % (0-9) Eosinophils (%) (Auto) 5 % (0-3) 5 % (0-3) Basophils (%) (Auto) 1 % (0-3) 0 % (0-3) Neutrophils # (Auto) 5.3 x10^3/uL (1.8-7.7) 4.5 x10^3/uL (1.8-7.7) Lymphocytes # (Auto) 1.7 x10^3/uL (1.0-4.8) 1.0 x10^3/uL (1.0-4.8) Monocytes # (Auto) 0.4 x10^3/uL (0.0-1.1) 0.4 x10^3/uL (0.0-1.1) Eosinophils # (Auto) 0.4 x10^3/uL (0.0-0.7) 0.3 x10^3/uL (0.0-0.7) Basophils # (Auto) 0.1 x10^3/uL (0.0-0.2) 0.0 x10^3/uL (0.0-0.2) Prothrombin Time 13.8 SEC (11.7-14.0) Prothromb Time International Ratio 1.1 (0.8-1.1) Sodium Level 136 mmol/L (136-145) 138 mmol/L (136-145) Potassium Level 4.1 mmol/L (3.5-5.1) 4.3 mmol/L (3.5-5.1) Chloride Level 99 mmol/L (98-107) 99 mmol/L (98-107) Carbon Dioxide Level 31 mmol/L (21-32) 33 mmol/L (21-32) Anion Gap 6 (6-14) 6 (6-14) Blood Urea Nitrogen 23 mg/dL (8-26) 19 mg/dL (8-26) Creatinine 1.2 mg/dL (0.7-1.3) 1.0 mg/dL (0.7-1.3) Estimated GFR (Cockcroft-Gault) 64.9 80.1 BUN/Creatinine Ratio 19 (6-20) Glucose Level 265 mg/dL (70-99) 226 mg/dL (70-99) Lactic Acid Level 2.2 mmol/L (0.4-2.0) 1.5 mmol/L (0.4-2.0) Calcium Level 9.3 mg/dL (8.5-10.1) 8.8 mg/dL (8.5-10.1) Total Bilirubin 0.3 mg/dL (0.2-1.0) Aspartate Amino Transf (AST/SGOT) 12 U/L (15-37) Alanine Aminotransferase (ALT/SGPT) 20 U/L (16-63) Alkaline Phosphatase 79 U/L (46-116) Total Protein 7.9 g/dL (6.4-8.2) Albumin 3.0 g/dL (3.4-5.0) Albumin/Globulin Ratio 0.6 (1.0-1.7) Urine Collection Type Unknown Urine Color Yellow Urine Clarity Clear Urine pH 7.5 (<5.0-8.0) Urine Specific [place] 1.020 (1.000-1.030) Urine Protein Negative mg/dL (NEG-TRACE) Urine Glucose (UA) 100 mg/dL (NEG) Urine Ketones (Stick) Negative mg/dL (NEG) Urine Blood Negative (NEG) Urine Nitrite Negative (NEG) Urine Bilirubin Negative (NEG) Urine Urobilinogen Dipstick 0.2 mg/dL (0.2 mg/dL) Urine Leukocyte Esterase Negative (NEG) Urine RBC 0 /HPF (0-2) Urine WBC 0 /HPF (0-4) Urine Squamous Epithelial Cells Few /LPF Urine Bacteria 0 /HPF (0-FEW) Glucose (Fingerstick) 168 mg/dL (70-99) Test 06/26/20 11:38 06/26/20 16:52 Glucose (Fingerstick) 198 mg/dL (70-99) 202 mg/dL (70-99) Laboratory Tests Test 06/25/20 21:57 06/25/20 22:35 06/26/20 07:43 06/26/20 09:10 White Blood Count 8.0 x10^3/uL (4.0-11.0) 6.2 x10^3/uL (4.0-11.0) Red Blood Count 3.76 x10^6/uL (4.30-5.70) 3.83 x10^6/uL (4.30-5.70) Hemoglobin 10.8 g/dL (13.0-17.5) 10.9 g/dL (13.0-17.5) Hematocrit 32.7 % (39.0-53.0) 33.5 % (39.0-53.0) Mean Corpuscular Volume 87 fL (79-100) 87 fL (79-100) Mean Corpuscular Hemoglobin 29 pg (25-35) 28 pg (25-35) Mean Corpuscular Hemoglobin Concent 33 g/dL (31-37) 33 g/dL (31-37) Red Cell Distribution Width 16.8 % (11.5-14.5) 17.2 % (11.5-14.5) Platelet Count 245 x10^3/uL (140-400) 216 x10^3/uL (140-400) Neutrophils (%) (Auto) 67 % (31-73) 74 % (31-73) Lymphocytes (%) (Auto) 22 % (24-48) 16 % (24-48) Monocytes (%) (Auto) 5 % (0-9) 6 % (0-9) Eosinophils (%) (Auto) 5 % (0-3) 5 % (0-3) Basophils (%) (Auto) 1 % (0-3) 0 % (0-3) Neutrophils # (Auto) 5.3 x10^3/uL (1.8-7.7) 4.5 x10^3/uL (1.8-7.7) Lymphocytes # (Auto) 1.7 x10^3/uL (1.0-4.8) 1.0 x10^3/uL (1.0-4.8) Monocytes # (Auto) 0.4 x10^3/uL (0.0-1.1) 0.4 x10^3/uL (0.0-1.1) Eosinophils # (Auto) 0.4 x10^3/uL (0.0-0.7) 0.3 x10^3/uL (0.0-0.7) Basophils # (Auto) 0.1 x10^3/uL (0.0-0.2) 0.0 x10^3/uL (0.0-0.2) Prothrombin Time 13.8 SEC (11.7-14.0) Prothromb Time International Ratio 1.1 (0.8-1.1) Sodium Level 136 mmol/L (136-145) 138 mmol/L (136-145) Potassium Level 4.1 mmol/L (3.5-5.1) 4.3 mmol/L (3.5-5.1) Chloride Level 99 mmol/L (98-107) 99 mmol/L (98-107) Carbon Dioxide Level 31 mmol/L (21-32) 33 mmol/L (21-32) Anion Gap 6 (6-14) 6 (6-14) Blood Urea Nitrogen 23 mg/dL (8-26) 19 mg/dL (8-26) Creatinine 1.2 mg/dL (0.7-1.3) 1.0 mg/dL (0.7-1.3) Estimated GFR (Cockcroft-Gault) 64.9 80.1 BUN/Creatinine Ratio 19 (6-20) Glucose Level 265 mg/dL (70-99) 226 mg/dL (70-99) Lactic Acid Level 2.2 mmol/L (0.4-2.0) 1.5 mmol/L (0.4-2.0) Calcium Level 9.3 mg/dL (8.5-10.1) 8.8 mg/dL (8.5-10.1) Total Bilirubin 0.3 mg/dL (0.2-1.0) Aspartate Amino Transf (AST/SGOT) 12 U/L (15-37) Alanine Aminotransferase (ALT/SGPT) 20 U/L (16-63) Alkaline Phosphatase 79 U/L (46-116) Total Protein 7.9 g/dL (6.4-8.2) Albumin 3.0 g/dL (3.4-5.0) Albumin/Globulin Ratio 0.6 (1.0-1.7) Urine Collection Type Unknown Urine Color Yellow Urine Clarity Clear Urine pH 7.5 (<5.0-8.0) Urine Specific [place] 1.020 (1.000-1.030) Urine Protein Negative mg/dL (NEG-TRACE) Urine Glucose (UA) 100 mg/dL (NEG) Urine Ketones (Stick) Negative mg/dL (NEG) Urine Blood Negative (NEG) Urine Nitrite Negative (NEG) Urine Bilirubin Negative (NEG) Urine Urobilinogen Dipstick 0.2 mg/dL (0.2 mg/dL) Urine Leukocyte Esterase Negative (NEG) Urine RBC 0 /HPF (0-2) Urine WBC 0 /HPF (0-4) Urine Squamous Epithelial Cells Few /LPF Urine Bacteria 0 /HPF (0-FEW) Glucose (Fingerstick) 168 mg/dL (70-99) Test 06/26/20 11:38 06/26/20 16:52 Glucose (Fingerstick) 198 mg/dL (70-99) 202 mg/dL (70-99) Microbiology 06/26/20 Gram Stain - Final, Resulted 06/26/20 Aerobic Culture, Resulted Pending Medications Current Medications Sodium Chloride 500 ml @ 500 mls/hr 1X ONCE IV Last administered on 06/25/20at 21:43; Start 06/25/20 at 21:30; Stop 06/25/20 at 22:29; Status DC Vancomycin HCl (Vanco Per Pharmacy) 1 each PRN DAILY PRN MC SEE COMMENTS Last administered on 06/26/20at 00:20; Start 06/25/20 at 21:00; Stop 06/26/20 at 09:37; Status DC Piperacillin Sod/ Tazobactam Sod 4.5 gm/Sodium Chloride 100 ml @ 200 mls/hr 1X ONCE IV Last administered on 06/25/20at 21:32; Start 06/25/20 at 21:30; Stop 06/25/20 at 21:59; Status DC Vancomycin HCl 2 gm/Sodium Chloride 500 ml @ 250 mls/hr 1X ONCE IV Last administered on 06/25/20at 21:32; Start 06/25/20 at 22:00; Stop 06/25/20 at 23:59; Status DC Piperacillin Sod/ Tazobactam Sod 4.5 gm/Sodium Chloride 100 ml @ 200 mls/hr Q6HRS IV ; Start 06/26/20 at 00:00; Status Cancel Hydromorphone HCl (Dilaudid) 1 mg 1X ONCE IV Last administered on 06/26/20at 00:16; Start 06/26/20 at 00:00; Stop 06/26/20 at 00:01; Status DC Hydromorphone HCl (Dilaudid) 0.5 mg PRN Q4HRS PRN IV SEVERE PAIN 7-10 Last administered on 06/26/20at 17:20; Start 06/25/20 at 23:45 Piperacillin Sod/ Tazobactam Sod 4.5 gm/Sodium Chloride 100 ml @ 200 mls/hr Q6HRS IV Last administered on 06/26/20at 17:20; Start 06/26/20 at 02:00 Vancomycin HCl 1.5 gm/Sodium Chloride 500 ml @ 250 mls/hr Q8HRS IV Last administered on 06/26/20at 06:43; Start 06/26/20 at 06:00; Stop 06/26/20 at 09:37; Status DC Vancomycin HCl (Vancomycin Trough Level) 1 each 1X ONCE MC ; Start 06/26/20 at 21:30; Stop 06/26/20 at 09:37; Status DC Sodium Chloride 1,000 ml @ 125 mls/hr 1X ONCE IV Last administered on 06/26/20at 08:50; Start 06/26/20 at 07:45; Stop 06/26/20 at 15:44; Status DC Aspirin (Aspirin Chewable) 81 mg DAILY PO Last administered on 06/26/20at 10:41; Start 06/26/20 at 12:00 Docusate Sodium (Colace) 100 mg PRN BID PRN PO CONSTIPATION; Start 06/26/20 at 10:15 Gabapentin (Neurontin) 300 mg TID PO Last administered on 06/26/20at 14:37; Start 06/26/20 at 14:00 Metoprolol Tartrate (Lopressor) 25 mg BID PO Last administered on 06/26/20at 10:42; Start 06/26/20 at 11:00 Oxycodone/ Acetaminophen (Percocet 10/325) 1 tab PRN Q6HRS PRN PO MODERATE TO SEVERE PAIN Last administered on 06/26/20 12:16; Start 06/26/20 at 10:15 Non-Formulary Medication (Albuterol Sulfate (Proventil Hfa Inhaler)) 2 puff BID IH ; Start 06/26/20 at 21:00; Status UNV Non-Formulary Medication (Budesonide/ Formoterol Fumarate (Symbicort 160-4.5 Mcg Inhaler)) 2 puff BID IH ; Start 06/26/20 at 21:00; Status UNV Lisinopril (Prinivil) 20 mg DAILY PO Last administered on 06/26/20at 10:41; Start 06/26/20 at 11:00 Atorvastatin Calcium (Lipitor) 5 mg QHS PO ; Start 06/26/20 at 21:00 Multivitamins (Thera M Plus) 1 tab DAILY PO Last administered on 06/26/20at 10:41; Start 06/26/20 at 09:00 Lactobacillus Rhamnosus (Culturelle) 1 cap BID PO ; Start 06/26/20 at 21:00 Insulin Glargine (Lantus Syringe) 25 unit QHS SQ ; Start 06/26/20 at 21:00 Insulin Human Lispro (HumaLOG) 0-7 UNITS TIDWMEALS SQ Last administered on 06/26/20at 17:26; Start 06/26/20 at 12:00 Dextrose (Dextrose 50%-Water Syringe) 12.5 gm PRN Q15MIN PRN IV SEE COMMENTS; Start 06/26/20 at 10:30 Insulin Human Lispro (HumaLOG) 8 units TIDWMEALS SQ Last administered on 06/26/20at 17:26; Start 06/26/20 at 12:00 Hydrochlorothiazide (Hydrodiuril) 25 mg DAILY PO Last administered on 06/26/20at 10:41; Start 06/26/20 at 11:00 Albuterol Sulfate (Ventolin Neb Soln) 2.5 mg Q6HRS NEB Last administered on 06/26/20at 15:28; Start 06/26/20 at 12:00 Budesonide (Pulmicort) 0.5 mg RTBID NEB Last administered on 06/26/20at 15:28; Start 06/26/20 at 11:00 Oxycodone HCl (Roxicodone) 10 mg PRN Q4HRS PRN PO MODERATE PAIN Last administered on 06/26/20at 16:09; Start 06/26/20 at 15:00 Morphine Sulfate (Morphine Sulfate) 4 mg PRN Q4HRS PRN IV MODERATE TO SEVERE PAIN; Start 06/26/20 at 15:00 Active Scripts Active Naproxen 500 Mg Tablet 1 Tab PO BID PRN Percocet 10-325 Mg Tablet (Oxycodone/Acetaminophen) 1 Each Tablet 1 Tab PO PRN Q6HRS PRN 14 Days Colace (Docusate Sodium) 100 Mg Capsule 100 Mg PO PRN BID PRN 30 Days Reported [place] 5-325 Tablet (Acetaminophen/Hydrocodone Bitart) 1 Each Tablet 1 Tab PO PRN BID PRN Lantus Solostar (Insulin Glargine,Hum.rec.anlog) 100 Unit/1 Ml Insuln.pen 20 Unit SQ QHS Gabapentin (Gabapentin) 300 Mg Capsule 300 Mg PO TID Janumet 50-1,000 Mg Tablet (Sitagliptin Phos/Metformin Hcl) 1 Each Tablet 1 Tab PO BID Multivitamins (Multivitamin) 1 Each Tablet 1 Tab PO DAILY Metoprolol Tartrate 25 Mg Tablet 1 Tab PO BID Livalo (Pitavastatin Calcium) 4 Mg Tablet 4 Mg PO Aspirin 81 Mg Tab.chew 1 Tab PO DAILY Iron Supplement (Ferrous Sulfate) 325 Mg Tablet 65 Mg PO Proventil Hfa Inhaler (Albuterol Sulfate) 6.7 Gm Hfa.aer.ad 2 Puff IH BID Lisinopril-Hctz 20-25 Mg Tab (Lisinopril/Hydrochlorothiazide) 1 Each Tablet 1 Tab PO DAILY Lovastatin 20 Mg Tablet 10 Mg PO HS Symbicort 160-4.5 Mcg Inhaler (Budesonide/Formoterol Fumarate) 10.2 Gm Hfa.aer.ad 2 Puff IH BID Vitals/I & O Vital Sign - Last 24 Hours 06/25/20 06/25/20 06/26/20 06/26/20 20:35 22:40 00:16 00:46 Temp 97.6 97.6 Pulse 84 88 Resp 12 18 B/P (MAP) 161/95 (117) 138/88 (105) Pulse Ox 95 100 O2 Delivery Room Air Room Air Room Air Room Air 06/26/20 06/26/20 06/26/20 06/26/20 00:47 00:52 03:00 07:10 Temp 98.4 97.8 98.4 97.8 Pulse 98 80 Resp 20 20 16 B/P (MAP) 114/73 (87) 144/68 (93) Pulse Ox 94 98 O2 Delivery Room Air Room Air Room Air Room Air 06/26/20 06/26/20 06/26/20 06/26/20 07:20 08:50 09:55 10:41 Pulse 80 B/P (MAP) 144/68 O2 Delivery Room Air Room Air Room Air 06/26/20 06/26/20 06/26/20 06/26/20 10:42 11:00 12:16 13:55 Temp 98.4 98.4 Pulse 80 80 Resp 18 B/P (MAP) 144/68 143/69 (93) Pulse Ox 98 O2 Delivery Room Air Room Air Room Air 06/26/20 06/26/20 06/26/20 06/26/20 15:00 15:30 16:09 17:20 Temp 98.3 98.3 Pulse 72 Resp 16 B/P (MAP) 118/56 (76) Pulse Ox 98 97 O2 Delivery Room Air Room Air Room Air Room Air 06/26/20 06/26/20 17:27 18:10 O2 Delivery Room Air Room Air Intake and Output 0 06/25/20 06/25/20 06/26/20 15:00 23:00 07:00 Intake Total 1100 ml Balance 1100 ml Justicifation of Admission Dx: Justifications for Admission: Justification of Admission Dx: Yes ATRA HAYES MD Jun 26, 2020 18:56
[2020-06-26 19:00] VITALS: BP 112/46
[2020-06-26] MEDS ORDERED: INSULIN GLARGINE SYRINGE. SQ SCH (21:00)
[2020-06-26] MEDS ORDERED: ATORVASTATIN CALCIUM 10 MG TABLET. PO SCH (21:00)
[2020-06-26] MEDS ORDERED: NON FORMULARY ITEM (Albuterol Sulfate (Proventil Hfa Inhaler) 2 PUFF) IH SCH (21:00)
[2020-06-26] MEDS ORDERED: NON FORMULARY ITEM (Budesonide/Formoterol Fumarate (Symbicort 160-4.5 Mcg Inhaler) 2 PUFF) IH SCH (21:00)
[2020-06-26] MEDS: LACTOBACILLUS RHAMNOSUS GG 1 CAPSULE. PO SCH (21:08)
[2020-06-26 23:00] VITALS: BP 139/92
[2020-06-27] MEDS: HYDROmorphone 2 MG/ML VIAL IV PRN (00:25)
[2020-06-27] MEDS: PIPERACILLIN/TAZOBACTAM 4.5 GM in IV NORMAL SALINE 100ML 100 ML IV SCH ×3 (00:25→12:00)
[2020-06-27 03:00] VITALS: BP 139/58
[2020-06-27 06:02] LABS: CALCIUM 8.6 mg/dL (8.5-10.1); GFR 80.1; POTASSIUM 4.2 mmol/L (3.5-5.1)
[2020-06-27 06:04] LABS: BASO % 0 % (0-3); EOS # 0.4 x10^3/uL (0.0-0.7); EOS % 5 % (0-3); HEMATOCRIT 32.6 % (39.0-53.0); HEMOGLOBIN 10.7 g/dL (13.0-17.5); LYMPH # 1.4 x10^3/uL (1.0-4.8); LYMPH % 18 % (24-48); MEAN CORPUSCULAR HEMOGLOBIN 29 pg (25-35); MEAN CORPUSCULAR HGB CONC 33 g/dL (31-37); MEAN CORPUSCULAR VOLUME 87 fL (79-100); MONO # 0.4 x10^3/uL (0.0-1.1); MONO % 6 % (0-9); NEUT # 5.3 x10^3/uL (1.8-7.7); NEUT % 70 % (31-73); PLATELET COUNT 240 x10^3/uL (140-400); RED BLOOD COUNT 3.75 x10^6/uL (4.30-5.70); RED CELL DISTRIBUTION WIDTH 16.9 % (11.5-14.5); WHITE BLOOD COUNT 7.6 x10^3/uL (4.0-11.0)
[2020-06-27] MEDS: oxyCODONE IR 5 MG TABLET PO PRN ×3 (06:07→15:09)
[2020-06-27 07:00] VITALS: BP 143/67
[2020-06-27] MEDS: BUDESONIDE 0.5 MG/2 ML NEBU. NEB SCH (07:15)
[2020-06-27] MEDS: ALBUTEROL SULFATE 2.5 MG/3 ML NEBU. NEB SCH ×2 (07:15→11:32)
[2020-06-27] MEDS: diphenhydrAMINE HCL 25 MG CAPSULE PO PRN ×2 (07:51→15:08)
[2020-06-27] MEDS: INSULIN LISPRO 300 UNITS/3 ML VIAL. SQ SCH ×4 (07:59→12:09)
[2020-06-27] MEDS: LACTOBACILLUS RHAMNOSUS GG 1 CAPSULE. PO SCH (09:38)
[2020-06-27] MEDS: MULTIVITAMIN with MINERAL TABLET. PO SCH (09:38)
[2020-06-27] MEDS: GABAPENTIN 300 MG CAPSULE. PO SCH ×2 (09:39→15:08)
[2020-06-27] MEDS: hydroCHLOROthiazide 25 MG TABLET PO SCH (09:39)
[2020-06-27] MEDS: LISINOPRIL 20 MG TABLET PO SCH (09:39)
--- NOTE | 2020-06-27 09:39 | NUR ---
SW following. Discussed with RN, plan for outpatient wound care appointments and oral abx. Dr. Mendoza plans to switch to oral abx and discharge home today. No further SW needs.
[2020-06-27] MEDS: METOPROLOL TART IMMED RELEASE 25 MG TABLET. PO SCH (09:40)
[2020-06-27] MEDS: ASPIRIN CHEWABLE 81 MG TABLET. PO SCH (09:40)
--- NOTE | 2020-06-27 10:00 | PDOC ---
PROGRESS NOTES Date of Service: DATE: 06/27/20 TIME: 09:53 Chief Complaint Chief Complaint Left toe pain History of Present Illness History of Present Illness Patient states his pain is well controlled. Discussed potential plan of outpatient wound care, short course of antibiotics, and tight blood glucose control. Patient conveys understanding and states he is ready for discharge. Vitals Vitals Vital Signs Date Time Temp Pulse Resp B/P (MAP) Pulse Ox O2 Delivery O2 Flow Rate FiO2 06/27/20 09:40 87 143/67 06/27/20 07:17 98 Room Air 06/27/20 07:00 97.7 18 97.7 Physical Exam General: Alert, Oriented X3, Cooperative, No acute distress Lungs: Clear Abdomen: Normal bowel sounds, Other (Obese) Extremities: Normal pulses, Other (+1 edema bilaterally) Skin: Other (~2x3 cm superficial ulceration to lateral left big toe, minimal surounding erythema.) Labs LABS Laboratory Tests Test 06/26/20 11:38 06/26/20 16:52 06/26/20 21:08 06/27/20 04:40 Glucose (Fingerstick) 198 mg/dL (70-99) 202 mg/dL (70-99) 200 mg/dL (70-99) White Blood Count 7.6 x10^3/uL (4.0-11.0) Red Blood Count 3.75 x10^6/uL (4.30-5.70) Hemoglobin 10.7 g/dL (13.0-17.5) Hematocrit 32.6 % (39.0-53.0) Mean Corpuscular Volume 87 fL (79-100) Mean Corpuscular Hemoglobin 29 pg (25-35) Mean Corpuscular Hemoglobin Concent 33 g/dL (31-37) Red Cell Distribution Width 16.9 % (11.5-14.5) Platelet Count 240 x10^3/uL (140-400) Neutrophils (%) (Auto) 70 % (31-73) Lymphocytes (%) (Auto) 18 % (24-48) Monocytes (%) (Auto) 6 % (0-9) Eosinophils (%) (Auto) 5 % (0-3) Basophils (%) (Auto) 0 % (0-3) Neutrophils # (Auto) 5.3 x10^3/uL (1.8-7.7) Lymphocytes # (Auto) 1.4 x10^3/uL (1.0-4.8) Monocytes # (Auto) 0.4 x10^3/uL (0.0-1.1) Eosinophils # (Auto) 0.4 x10^3/uL (0.0-0.7) Basophils # (Auto) 0.0 x10^3/uL (0.0-0.2) Sodium Level 135 mmol/L (136-145) Potassium Level 4.2 mmol/L (3.5-5.1) Chloride Level 99 mmol/L (98-107) Carbon Dioxide Level 32 mmol/L (21-32) Anion Gap 4 (6-14) Blood Urea Nitrogen 16 mg/dL (8-26) Creatinine 1.0 mg/dL (0.7-1.3) Estimated GFR (Cockcroft-Gault) 80.1 Glucose Level 189 mg/dL (70-99) Calcium Level 8.6 mg/dL (8.5-10.1) Test 06/27/20 07:44 Glucose (Fingerstick) 163 mg/dL (70-99) Review of Systems Review of Systems Left heel pain. Denies drainage, denies swelling, denies fever. All other systems negative. Assessment and Plan Assessmemt and Plan (1) Left big toe ulcer (2) Mild malnutrition We will discharge patient on a short course of Augmentin twice daily for 7 days he is to have outpatient follow-up with wound care and regular dressing changes with Xeroform and gauze wrap. Comment Review of Relevant I have reviewed the following items jeanne (where applicable) has been applied. Labs Laboratory Tests Test 06/25/20 21:57 06/25/20 22:35 06/26/20 07:43 06/26/20 09:10 White Blood Count 8.0 x10^3/uL (4.0-11.0) 6.2 x10^3/uL (4.0-11.0) Red Blood Count 3.76 x10^6/uL (4.30-5.70) 3.83 x10^6/uL (4.30-5.70) Hemoglobin 10.8 g/dL (13.0-17.5) 10.9 g/dL (13.0-17.5) Hematocrit 32.7 % (39.0-53.0) 33.5 % (39.0-53.0) Mean Corpuscular Volume 87 fL (79-100) 87 fL (79-100) Mean Corpuscular Hemoglobin 29 pg (25-35) 28 pg (25-35) Mean Corpuscular Hemoglobin Concent 33 g/dL (31-37) 33 g/dL (31-37) Red Cell Distribution Width 16.8 % (11.5-14.5) 17.2 % (11.5-14.5) Platelet Count 245 x10^3/uL (140-400) 216 x10^3/uL (140-400) Neutrophils (%) (Auto) 67 % (31-73) 74 % (31-73) Lymphocytes (%) (Auto) 22 % (24-48) 16 % (24-48) Monocytes (%) (Auto) 5 % (0-9) 6 % (0-9) Eosinophils (%) (Auto) 5 % (0-3) 5 % (0-3) Basophils (%) (Auto) 1 % (0-3) 0 % (0-3) Neutrophils # (Auto) 5.3 x10^3/uL (1.8-7.7) 4.5 x10^3/uL (1.8-7.7) Lymphocytes # (Auto) 1.7 x10^3/uL (1.0-4.8) 1.0 x10^3/uL (1.0-4.8) Monocytes # (Auto) 0.4 x10^3/uL (0.0-1.1) 0.4 x10^3/uL (0.0-1.1) Eosinophils # (Auto) 0.4 x10^3/uL (0.0-0.7) 0.3 x10^3/uL (0.0-0.7) Basophils # (Auto) 0.1 x10^3/uL (0.0-0.2) 0.0 x10^3/uL (0.0-0.2) Prothrombin Time 13.8 SEC (11.7-14.0) Prothromb Time International Ratio 1.1 (0.8-1.1) Sodium Level 136 mmol/L (136-145) 138 mmol/L (136-145) Potassium Level 4.1 mmol/L (3.5-5.1) 4.3 mmol/L (3.5-5.1) Chloride Level 99 mmol/L (98-107) 99 mmol/L (98-107) Carbon Dioxide Level 31 mmol/L (21-32) 33 mmol/L (21-32) Anion Gap 6 (6-14) 6 (6-14) Blood Urea Nitrogen 23 mg/dL (8-26) 19 mg/dL (8-26) Creatinine 1.2 mg/dL (0.7-1.3) 1.0 mg/dL (0.7-1.3) Estimated GFR (Cockcroft-Gault) 64.9 80.1 BUN/Creatinine Ratio 19 (6-20) Glucose Level 265 mg/dL (70-99) 226 mg/dL (70-99) Lactic Acid Level 2.2 mmol/L (0.4-2.0) 1.5 mmol/L (0.4-2.0) Calcium Level 9.3 mg/dL (8.5-10.1) 8.8 mg/dL (8.5-10.1) Total Bilirubin 0.3 mg/dL (0.2-1.0) Aspartate Amino Transf (AST/SGOT) 12 U/L (15-37) Alanine Aminotransferase (ALT/SGPT) 20 U/L (16-63) Alkaline Phosphatase 79 U/L (46-116) Total Protein 7.9 g/dL (6.4-8.2) Albumin 3.0 g/dL (3.4-5.0) Albumin/Globulin Ratio 0.6 (1.0-1.7) Urine Collection Type Unknown Urine Color Yellow Urine Clarity Clear Urine pH 7.5 (<5.0-8.0) Urine Specific [place] 1.020 (1.000-1.030) Urine Protein Negative mg/dL (NEG-TRACE) Urine Glucose (UA) 100 mg/dL (NEG) Urine Ketones (Stick) Negative mg/dL (NEG) Urine Blood Negative (NEG) Urine Nitrite Negative (NEG) Urine Bilirubin Negative (NEG) Urine Urobilinogen Dipstick 0.2 mg/dL (0.2 mg/dL) Urine Leukocyte Esterase Negative (NEG) Urine RBC 0 /HPF (0-2) Urine WBC 0 /HPF (0-4) Urine Squamous Epithelial Cells Few /LPF Urine Bacteria 0 /HPF (0-FEW) Glucose (Fingerstick) 168 mg/dL (70-99) Test 06/26/20 11:38 06/26/20 16:52 06/26/20 21:08 06/27/20 04:40 Glucose (Fingerstick) 198 mg/dL (70-99) 202 mg/dL (70-99) 200 mg/dL (70-99) White Blood Count 7.6 x10^3/uL (4.0-11.0) Red Blood Count 3.75 x10^6/uL (4.30-5.70) Hemoglobin 10.7 g/dL (13.0-17.5) Hematocrit 32.6 % (39.0-53.0) Mean Corpuscular Volume 87 fL (79-100) Mean Corpuscular Hemoglobin 29 pg (25-35) Mean Corpuscular Hemoglobin Concent 33 g/dL (31-37) Red Cell Distribution Width 16.9 % (11.5-14.5) Platelet Count 240 x10^3/uL (140-400) Neutrophils (%) (Auto) 70 % (31-73) Lymphocytes (%) (Auto) 18 % (24-48) Monocytes (%) (Auto) 6 % (0-9) Eosinophils (%) (Auto) 5 % (0-3) Basophils (%) (Auto) 0 % (0-3) Neutrophils # (Auto) 5.3 x10^3/uL (1.8-7.7) Lymphocytes # (Auto) 1.4 x10^3/uL (1.0-4.8) Monocytes # (Auto) 0.4 x10^3/uL (0.0-1.1) Eosinophils # (Auto) 0.4 x10^3/uL (0.0-0.7) Basophils # (Auto) 0.0 x10^3/uL (0.0-0.2) Sodium Level 135 mmol/L (136-145) Potassium Level 4.2 mmol/L (3.5-5.1) Chloride Level 99 mmol/L (98-107) Carbon Dioxide Level 32 mmol/L (21-32) Anion Gap 4 (6-14) Blood Urea Nitrogen 16 mg/dL (8-26) Creatinine 1.0 mg/dL (0.7-1.3) Estimated GFR (Cockcroft-Gault) 80.1 Glucose Level 189 mg/dL (70-99) Calcium Level 8.6 mg/dL (8.5-10.1) Test 06/27/20 07:44 Glucose (Fingerstick) 163 mg/dL (70-99) Laboratory Tests Test 06/26/20 11:38 06/26/20 16:52 06/26/20 21:08 06/27/20 04:40 Glucose (Fingerstick) 198 mg/dL (70-99) 202 mg/dL (70-99) 200 mg/dL (70-99) White Blood Count 7.6 x10^3/uL (4.0-11.0) Red Blood Count 3.75 x10^6/uL (4.30-5.70) Hemoglobin 10.7 g/dL (13.0-17.5) Hematocrit 32.6 % (39.0-53.0) Mean Corpuscular Volume 87 fL (79-100) Mean Corpuscular Hemoglobin 29 pg (25-35) Mean Corpuscular Hemoglobin Concent 33 g/dL (31-37) Red Cell Distribution Width 16.9 % (11.5-14.5) Platelet Count 240 x10^3/uL (140-400) Neutrophils (%) (Auto) 70 % (31-73) Lymphocytes (%) (Auto) 18 % (24-48) Monocytes (%) (Auto) 6 % (0-9) Eosinophils (%) (Auto) 5 % (0-3) Basophils (%) (Auto) 0 % (0-3) Neutrophils # (Auto) 5.3 x10^3/uL (1.8-7.7) Lymphocytes # (Auto) 1.4 x10^3/uL (1.0-4.8) Monocytes # (Auto) 0.4 x10^3/uL (0.0-1.1) Eosinophils # (Auto) 0.4 x10^3/uL (0.0-0.7) Basophils # (Auto) 0.0 x10^3/uL (0.0-0.2) Sodium Level 135 mmol/L (136-145) Potassium Level 4.2 mmol/L (3.5-5.1) Chloride Level 99 mmol/L (98-107) Carbon Dioxide Level 32 mmol/L (21-32) Anion Gap 4 (6-14) Blood Urea Nitrogen 16 mg/dL (8-26) Creatinine 1.0 mg/dL (0.7-1.3) Estimated GFR (Cockcroft-Gault) 80.1 Glucose Level 189 mg/dL (70-99) Calcium Level 8.6 mg/dL (8.5-10.1) Test 06/27/20 07:44 Glucose (Fingerstick) 163 mg/dL (70-99) Microbiology 06/26/20 Gram Stain - Final, Resulted 06/26/20 Aerobic Culture, Resulted Pending Medications Current Medications Sodium Chloride 500 ml @ 500 mls/hr 1X ONCE IV Last administered on 06/25/20at 21:43; Start 06/25/20 at 21:30; Stop 06/25/20 at 22:29; Status DC Vancomycin HCl (Vanco Per Pharmacy) 1 each PRN DAILY PRN MC SEE COMMENTS Last administered on 06/26/20at 00:20; Start 06/25/20 at 21:00; Stop 06/26/20 at 09:37; Status DC Piperacillin Sod/ Tazobactam Sod 4.5 gm/Sodium Chloride 100 ml @ 200 mls/hr 1X ONCE IV Last administered on 06/25/20at 21:32; Start 06/25/20 at 21:30; Stop 06/25/20 at 21:59; Status DC Vancomycin HCl 2 gm/Sodium Chloride 500 ml @ 250 mls/hr 1X ONCE IV Last administered on 06/25/20at 21:32; Start 06/25/20 at 22:00; Stop 06/25/20 at 23:59; Status DC Piperacillin Sod/ Tazobactam Sod 4.5 gm/Sodium Chloride 100 ml @ 200 mls/hr Q6HRS IV ; Start 06/26/20 at 00:00; Status Cancel Hydromorphone HCl (Dilaudid) 1 mg 1X ONCE IV Last administered on 06/26/20at 00:16; Start 06/26/20 at 00:00; Stop 06/26/20 at 00:01; Status DC Hydromorphone HCl (Dilaudid) 0.5 mg PRN Q4HRS PRN IV SEVERE PAIN 7-10 Last administered on 06/27/20at 00:25; Start 06/25/20 at 23:45 Piperacillin Sod/ Tazobactam Sod 4.5 gm/Sodium Chloride 100 ml @ 200 mls/hr Q6HRS IV Last administered on 06/27/20at 06:07; Start 06/26/20 at 02:00 Vancomycin HCl 1.5 gm/Sodium Chloride 500 ml @ 250 mls/hr Q8HRS IV Last administered on 06/26/20at 06:43; Start 06/26/20 at 06:00; Stop 06/26/20 at 09:37; Status DC Vancomycin HCl (Vancomycin Trough Level) 1 each 1X ONCE MC ; Start 06/26/20 at 21:30; Stop 06/26/20 at 09:37; Status DC Sodium Chloride 1,000 ml @ 125 mls/hr 1X ONCE IV Last administered on 06/26/20at 08:50; Start 06/26/20 at 07:45; Stop 06/26/20 at 15:44; Status DC Aspirin (Aspirin Chewable) 81 mg DAILY PO Last administered on 06/27/20at 09:40; Start 06/26/20 at 12:00 Docusate Sodium (Colace) 100 mg PRN BID PRN PO CONSTIPATION; Start 06/26/20 at 10:15 Gabapentin (Neurontin) 300 mg TID PO Last administered on 06/27/20at 09:39; Start 06/26/20 at 14:00 Metoprolol Tartrate (Lopressor) 25 mg BID PO Last administered on 06/27/20at 09:40; Start 06/26/20 at 11:00 Oxycodone/ Acetaminophen (Percocet 10/325) 1 tab PRN Q6HRS PRN PO MODERATE TO SEVERE PAIN Last administered on 06/26/20at 12:16; Start 06/26/20 at 10:15 Non-Formulary Medication (Albuterol Sulfate (Proventil Hfa Inhaler)) 2 puff BID IH ; Start 06/26/20 at 21:00; Status UNV Non-Formulary Medication (Budesonide/ Formoterol Fumarate (Symbicort 160-4.5 Mcg Inhaler)) 2 puff BID IH ; Start 06/26/20 at 21:00; Status UNV Lisinopril (Prinivil) 20 mg DAILY PO Last administered on 06/27/20 09:39; Start 06/26/20 at 11:00 Atorvastatin Calcium (Lipitor) 5 mg QHS PO Last administered on 06/26/20 21:09; Start 06/26/20 at 21:00 Multivitamins (Thera M Plus) 1 tab DAILY PO Last administered on 06/27/20 09:38; Start 06/26/20 at 09:00 Lactobacillus Rhamnosus (Culturelle) 1 cap BID PO Last administered on 06/27/20 09:38; Start 06/26/20 at 21:00 Insulin Glargine (Lantus Syringe) 25 unit QHS SQ Last administered on 06/26/20at 21:14; Start 06/26/20 at 21:00 Insulin Human Lispro (HumaLOG) 0-7 UNITS TIDWMEALS SQ Last administered on 06/27/20at 07:59; Start 06/26/20 at 12:00 Dextrose (Dextrose 50%-Water Syringe) 12.5 gm PRN Q15MIN PRN IV SEE COMMENTS; Start 06/26/20 at 10:30 Insulin Human Lispro (HumaLOG) 8 units TIDWMEALS SQ Last administered on 06/27/20at 08:00; Start 06/26/20 at 12:00 Hydrochlorothiazide (Hydrodiuril) 25 mg DAILY PO Last administered on 06/27/20 09:39; Start 06/26/20 at 11:00 Albuterol Sulfate (Ventolin Neb Soln) 2.5 mg Q6HRS NEB Last administered on 06/26/20at 19:55; Start 06/26/20 at 12:00; Stop 06/26/20 at 21:35; Status DC Budesonide (Pulmicort) 0.5 mg RTBID NEB Last administered on 06/27/20 07:15; Start 06/26/20 at 11:00 Oxycodone HCl (Roxicodone) 10 mg PRN Q4HRS PRN PO MODERATE PAIN Last administered on 06/27/20 06:07; Start 06/26/20 at 15:00 Morphine Sulfate (Morphine Sulfate) 4 mg PRN Q4HRS PRN IV MODERATE TO SEVERE PAIN; Start 06/26/20 at 15:00 Albuterol Sulfate (Ventolin Neb Soln) 2.5 mg RTQID NEB Last administered on 06/27/20at 07:15; Start 06/27/20 at 08:00 Diphenhydramine HCl (Benadryl) 25 mg PRN Q6HRS PRN PO ITCHING Last administered on 06/27/20at 07:51; Start 06/27/20 at 07:45 Active Scripts Active Naproxen 500 Mg Tablet 1 Tab PO BID PRN Percocet 10-325 Mg Tablet (Oxycodone/Acetaminophen) 1 Each Tablet 1 Tab PO PRN Q6HRS PRN 14 Days Colace (Docusate Sodium) 100 Mg Capsule 100 Mg PO PRN BID PRN 30 Days Reported [place] 5-325 Tablet (Acetaminophen/Hydrocodone Bitart) 1 Each Tablet 1 Tab PO PRN BID PRN Lantus Solostar (Insulin Glargine,Hum.rec.anlog) 100 Unit/1 Ml Insuln.pen 20 Unit SQ QHS Gabapentin (Gabapentin) 300 Mg Capsule 300 Mg PO TID Janumet 50-1,000 Mg Tablet (Sitagliptin Phos/Metformin Hcl) 1 Each Tablet 1 Tab PO BID Multivitamins (Multivitamin) 1 Each Tablet 1 Tab PO DAILY Metoprolol Tartrate 25 Mg Tablet 1 Tab PO BID Livalo (Pitavastatin Calcium) 4 Mg Tablet 4 Mg PO Aspirin 81 Mg Tab.chew 1 Tab PO DAILY Iron Supplement (Ferrous Sulfate) 325 Mg Tablet 65 Mg PO Proventil Hfa Inhaler (Albuterol Sulfate) 6.7 Gm Hfa.aer.ad 2 Puff IH BID Lisinopril-Hctz 20-25 Mg Tab (Lisinopril/Hydrochlorothiazide) 1 Each Tablet 1 Tab PO DAILY Lovastatin 20 Mg Tablet 10 Mg PO HS Symbicort 160-4.5 Mcg Inhaler (Budesonide/Formoterol Fumarate) 10.2 Gm Hfa.aer.ad 2 Puff IH BID Vitals/I & O Vital Sign - Last 24 Hours 06/26/20 06/26/20 06/26/20 06/26/20 09:55 10:41 10:42 11:00 Temp 98.4 98.4 Pulse 80 80 80 Resp 18 B/P (MAP) 144/68 144/68 143/69 (93) Pulse Ox 98 O2 Delivery Room Air Room Air 06/26/20 06/26/20 06/26/20 06/26/20 12:16 13:55 15:00 15:30 Temp 98.3 98.3 Pulse 72 Resp 16 B/P (MAP) 118/56 (76) Pulse Ox 98 97 O2 Delivery Room Air Room Air Room Air Room Air 06/26/20 06/26/20 06/26/20 06/26/20 16:09 17:20 17:27 18:10 O2 Delivery Room Air Room Air Room Air Room Air 06/26/20 06/26/20 06/26/20 06/26/20 19:00 19:57 19:58 20:00 Temp 97.9 97.9 Pulse 80 Resp 18 B/P (MAP) 112/46 (68) Pulse Ox 98 94 94 O2 Delivery Room Air Room Air Room Air Room Air 06/26/20 06/26/20 06/26/20 06/27/20 21:09 22:49 23:00 00:24 Temp 97.5 97.5 Pulse 80 88 Resp 18 B/P (MAP) 112/46 139/92 (108) Pulse Ox 98 O2 Delivery Room Air Room Air Room Air 06/27/20 06/27/20 06/27/20 06/27/20 00:25 00:55 03:00 06:07 Temp 97.5 97.5 Pulse 86 Resp 18 B/P (MAP) 139/58 (85) Pulse Ox 97 O2 Delivery Room Air Room Air Room Air Room Air 06/27/20 06/27/20 06/27/20 06/27/20 07:00 07:12 07:17 09:39 Temp 97.7 97.7 Pulse 87 87 Resp 18 B/P (MAP) 143/67 (92) 143/67 Pulse Ox 96 98 O2 Delivery Room Air Room Air Room Air 06/27/20 09:40 Pulse 87 B/P (MAP) 143/67 Intake and Output 06/26/20 06/26/20 06/27/20 15:00 23:00 07:00 Intake Total 200 ml 480 ml Balance 200 ml 480 ml Justicifation of Admission Dx: Justifications for Admission: Justification of Admission Dx: Yes TARA HAYES MD Jun 27, 2020 10:00
[2020-06-27] MEDS ORDERED: AMOX1TAB61 PO (10:13)
[2020-06-27] MEDS ORDERED: HYDROcodone/APAP 5/325MG 1 TAB TABLET PO PRN (10:15)
[2020-06-27] MEDS ORDERED: NAPROXEN 500 MG TABLET PO PRN (10:15)
--- NOTE | 2020-06-27 10:25 | PDOC3 ---
Discharge Summary Visit Information Date of Admission: Jun 26, 2020 Date of Discharge: Jun 27, 2020 Final Diagnosis Diabetic foot ulcer, mild malnutrition Brief Hospital Course Allergies Allergies Coded Allergies Type Severity Reaction Last Updated Verified No Known Drug Allergies 10/09/18 No Vital Signs Vital Signs Date Time Temp Pulse Resp B/P (MAP) Pulse Ox O2 Delivery O2 Flow Rate FiO2 06/27/20 10:04 18 Room Air 06/27/20 09:40 87 143/67 06/27/20 07:17 98 06/27/20 07:00 97.7 97.7 Lab Results Laboratory Tests Test 06/25/20 21:57 06/25/20 22:35 06/26/20 07:43 06/26/20 09:10 White Blood Count 8.0 x10^3/uL (4.0-11.0) 6.2 x10^3/uL (4.0-11.0) Red Blood Count 3.76 x10^6/uL (4.30-5.70) 3.83 x10^6/uL (4.30-5.70) Hemoglobin 10.8 g/dL (13.0-17.5) 10.9 g/dL (13.0-17.5) Hematocrit 32.7 % (39.0-53.0) 33.5 % (39.0-53.0) Mean Corpuscular Volume 87 fL (79-100) 87 fL (79-100) Mean Corpuscular Hemoglobin 29 pg (25-35) 28 pg (25-35) Mean Corpuscular Hemoglobin Concent 33 g/dL (31-37) 33 g/dL (31-37) Red Cell Distribution Width 16.8 % (11.5-14.5) 17.2 % (11.5-14.5) Platelet Count 245 x10^3/uL (140-400) 216 x10^3/uL (140-400) Neutrophils (%) (Auto) 67 % (31-73) 74 % (31-73) Lymphocytes (%) (Auto) 22 % (24-48) 16 % (24-48) Monocytes (%) (Auto) 5 % (0-9) 6 % (0-9) Eosinophils (%) (Auto) 5 % (0-3) 5 % (0-3) Basophils (%) (Auto) 1 % (0-3) 0 % (0-3) Neutrophils # (Auto) 5.3 x10^3/uL (1.8-7.7) 4.5 x10^3/uL (1.8-7.7) Lymphocytes # (Auto) 1.7 x10^3/uL (1.0-4.8) 1.0 x10^3/uL (1.0-4.8) Monocytes # (Auto) 0.4 x10^3/uL (0.0-1.1) 0.4 x10^3/uL (0.0-1.1) Eosinophils # (Auto) 0.4 x10^3/uL (0.0-0.7) 0.3 x10^3/uL (0.0-0.7) Basophils # (Auto) 0.1 x10^3/uL (0.0-0.2) 0.0 x10^3/uL (0.0-0.2) Prothrombin Time 13.8 SEC (11.7-14.0) Prothromb Time International Ratio 1.1 (0.8-1.1) Sodium Level 136 mmol/L (136-145) 138 mmol/L (136-145) Potassium Level 4.1 mmol/L (3.5-5.1) 4.3 mmol/L (3.5-5.1) Chloride Level 99 mmol/L (98-107) 99 mmol/L (98-107) Carbon Dioxide Level 31 mmol/L (21-32) 33 mmol/L (21-32) Anion Gap 6 (6-14) 6 (6-14) Blood Urea Nitrogen 23 mg/dL (8-26) 19 mg/dL (8-26) Creatinine 1.2 mg/dL (0.7-1.3) 1.0 mg/dL (0.7-1.3) Estimated GFR (Cockcroft-Gault) 64.9 80.1 BUN/Creatinine Ratio 19 (6-20) Glucose Level 265 mg/dL (70-99) 226 mg/dL (70-99) Lactic Acid Level 2.2 mmol/L (0.4-2.0) 1.5 mmol/L (0.4-2.0) Calcium Level 9.3 mg/dL (8.5-10.1) 8.8 mg/dL (8.5-10.1) Total Bilirubin 0.3 mg/dL (0.2-1.0) Aspartate Amino Transf (AST/SGOT) 12 U/L (15-37) Alanine Aminotransferase (ALT/SGPT) 20 U/L (16-63) Alkaline Phosphatase 79 U/L (46-116) Total Protein 7.9 g/dL (6.4-8.2) Albumin 3.0 g/dL (3.4-5.0) Albumin/Globulin Ratio 0.6 (1.0-1.7) Urine Collection Type Unknown Urine Color Yellow Urine Clarity Clear Urine pH 7.5 (<5.0-8.0) Urine Specific [place] 1.020 (1.000-1.030) Urine Protein Negative mg/dL (NEG-TRACE) Urine Glucose (UA) 100 mg/dL (NEG) Urine Ketones (Stick) Negative mg/dL (NEG) Urine Blood Negative (NEG) Urine Nitrite Negative (NEG) Urine Bilirubin Negative (NEG) Urine Urobilinogen Dipstick 0.2 mg/dL (0.2 mg/dL) Urine Leukocyte Esterase Negative (NEG) Urine RBC 0 /HPF (0-2) Urine WBC 0 /HPF (0-4) Urine Squamous Epithelial Cells Few /LPF Urine Bacteria 0 /HPF (0-FEW) Glucose (Fingerstick) 168 mg/dL (70-99) Test 06/26/20 11:38 06/26/20 16:52 06/26/20 21:08 06/27/20 04:40 Glucose (Fingerstick) 198 mg/dL (70-99) 202 mg/dL (70-99) 200 mg/dL (70-99) White Blood Count 7.6 x10^3/uL (4.0-11.0) Red Blood Count 3.75 x10^6/uL (4.30-5.70) Hemoglobin 10.7 g/dL (13.0-17.5) Hematocrit 32.6 % (39.0-53.0) Mean Corpuscular Volume 87 fL (79-100) Mean Corpuscular Hemoglobin 29 pg (25-35) Mean Corpuscular Hemoglobin Concent 33 g/dL (31-37) Red Cell Distribution Width 16.9 % (11.5-14.5) Platelet Count 240 x10^3/uL (140-400) Neutrophils (%) (Auto) 70 % (31-73) Lymphocytes (%) (Auto) 18 % (24-48) Monocytes (%) (Auto) 6 % (0-9) Eosinophils (%) (Auto) 5 % (0-3) Basophils (%) (Auto) 0 % (0-3) Neutrophils # (Auto) 5.3 x10^3/uL (1.8-7.7) Lymphocytes # (Auto) 1.4 x10^3/uL (1.0-4.8) Monocytes # (Auto) 0.4 x10^3/uL (0.0-1.1) Eosinophils # (Auto) 0.4 x10^3/uL (0.0-0.7) Basophils # (Auto) 0.0 x10^3/uL (0.0-0.2) Sodium Level 135 mmol/L (136-145) Potassium Level 4.2 mmol/L (3.5-5.1) Chloride Level 99 mmol/L (98-107) Carbon Dioxide Level 32 mmol/L (21-32) Anion Gap 4 (6-14) Blood Urea Nitrogen 16 mg/dL (8-26) Creatinine 1.0 mg/dL (0.7-1.3) Estimated GFR (Cockcroft-Gault) 80.1 Glucose Level 189 mg/dL (70-99) Calcium Level 8.6 mg/dL (8.5-10.1) Test 06/27/20 07:44 Glucose (Fingerstick) 163 mg/dL (70-99) Laboratory Tests Test 06/26/20 11:38 06/26/20 16:52 06/26/20 21:08 06/27/20 04:40 Glucose (Fingerstick) 198 mg/dL (70-99) 202 mg/dL (70-99) 200 mg/dL (70-99) White Blood Count 7.6 x10^3/uL (4.0-11.0) Red Blood Count 3.75 x10^6/uL (4.30-5.70) Hemoglobin 10.7 g/dL (13.0-17.5) Hematocrit 32.6 % (39.0-53.0) Mean Corpuscular Volume 87 fL (79-100) Mean Corpuscular Hemoglobin 29 pg (25-35) Mean Corpuscular Hemoglobin Concent 33 g/dL (31-37) Red Cell Distribution Width 16.9 % (11.5-14.5) Platelet Count 240 x10^3/uL (140-400) Neutrophils (%) (Auto) 70 % (31-73) Lymphocytes (%) (Auto) 18 % (24-48) Monocytes (%) (Auto) 6 % (0-9) Eosinophils (%) (Auto) 5 % (0-3) Basophils (%) (Auto) 0 % (0-3) Neutrophils # (Auto) 5.3 x10^3/uL (1.8-7.7) Lymphocytes # (Auto) 1.4 x10^3/uL (1.0-4.8) Monocytes # (Auto) 0.4 x10^3/uL (0.0-1.1) Eosinophils # (Auto) 0.4 x10^3/uL (0.0-0.7) Basophils # (Auto) 0.0 x10^3/uL (0.0-0.2) Sodium Level 135 mmol/L (136-145) Potassium Level 4.2 mmol/L (3.5-5.1) Chloride Level 99 mmol/L (98-107) Carbon Dioxide Level 32 mmol/L (21-32) Anion Gap 4 (6-14) Blood Urea Nitrogen 16 mg/dL (8-26) Creatinine 1.0 mg/dL (0.7-1.3) Estimated GFR (Cockcroft-Gault) 80.1 Glucose Level 189 mg/dL (70-99) Calcium Level 8.6 mg/dL (8.5-10.1) Test 06/27/20 07:44 Glucose (Fingerstick) 163 mg/dL (70-99) Brief Hospital Course Mr. Grigsby is a 45 old male who presented with a painful blister to his left big toe for the past 4 days. Associated serosanguineous drainage. He was admitted for diabetic foot ulcer management. He was started on broad-spectrum antibiotics, with a consult to wound care. He was given appropriate wound care instructions, with outpatient wound care follow-up and short course of antibiotics. Discharge Information Condition at Discharge: Improved Follow Up: Weeks Disposition/Orders: D/C to Home Scheduled Albuterol Sulfate (Proventil Hfa Inhaler) 6.7 Gm Hfa.aer.ad, 2 PUFF IH BID, #1 Ref 3 (Reported) Entered as Reported by: AKBAR MARTE on 04/19/15918 Last Action: Converted on 06/26/20 1016 by TARA HAYES MD Amoxicillin/Potassium Clav (Augmentin 875-125 Tablet) 1 Each Tablet, 1 TAB PO BID for cellulitis for 7 Days, #14 Ref 0 Prescribed by: TARA HAYES MD on 06/27/20 1013 Last Action: Continued on 06/27/20 1019 by TARA HAYES MD Aspirin (Aspirin) 81 Mg Tab.chew, 1 TAB PO DAILY, #30 Ref 3 (Reported) Entered as Reported by: AKBAR MARTE on 04/19/15918 Last Action: Continued on 06/26/20 1016 by TARA HAYES MD Budesonide/Formoterol Fumarate (Symbicort 160-4.5 Mcg Inhaler) 10.2 Gm Hfa.aer.ad, 2 PUFF IH BID, #10.6 Ref 3 (Reported) Entered as Reported by: AKBAR MARTE on 04/19/15914 Last Action: Converted on 06/26/20 1016 by TARA HAYES MD Gabapentin (Gabapentin ) 300 Mg Capsule, 300 MG PO TID, (Reported) Entered as Reported by: ANNABEL MARY on 09/01/18 1138 Last Action: Continued on 06/26/20 1016 by TARA HAYES MD Insulin Glargine,Hum.rec.anlog (Lantus Solostar) 100 Unit/1 Ml Insuln.pen, 20 UNIT SQ QHS, #15 Ref 5 (Reported) Entered as Reported by: ANNABEL MARY on 09/01/181137 Last Action: Reviewed on 06/26/20 0039 by JATINDER CASEY Lisinopril/Hydrochlorothiazide (Lisinopril-Hctz 20-25 Mg Tab) 1 Each Tablet, 1 TAB PO DAILY, #30 Ref 5 (Reported) Entered as Reported by: AKBAR MARTE on 04/19/15914 Last Action: Converted on 06/26/20 1016 by TARA HAYES MD Lovastatin (Lovastatin) 20 Mg Tablet, 10 MG PO HS, (Reported) Entered as Reported by: AKBAR MARTE on 04/19/15 0915 Last Action: Converted on 06/26/20 1016 by TARA HAYES MD Metoprolol Tartrate (Metoprolol Tartrate) 25 Mg Tablet, 1 TAB PO BID, #180 Ref 1 (Reported) Entered as Reported by: ANNABEL MARY on 09/01/18 113 Last Action: Continued on 06/26/20 1016 by TARA HAYES MD Multivitamin (Multivitamins) 1 Each Tablet, 1 TAB PO DAILY, #90 Ref 3 (Reported) Entered as Reported by: ANNABEL MARY on 09/01/18 113 Last Action: Converted on 06/26/20 1016 by TARA HAYES MD Sitagliptin Phos/Metformin Hcl (Janumet 50-1,000 Mg Tablet) 1 Each Tablet, 1 TAB PO BID, #60 Ref 5 (Reported) Entered as Reported by: ANNABEL MARY on 09/01/18 113 Last Action: HELD on 06/26/20 1016 by TRAA HAYES MD Scheduled PRN Docusate Sodium (Colace) 100 Mg Capsule, 100 MG PO PRN BID PRN for CONSTIPATION for 30 Days, #30 Prescribed by: JOVANA YEN MD on 10/11/18 1157 Last Action: Continued on 06/26/20 1016 by TARA HAYES MD Hydrocodone/Apap 5-325 ([place] 5-325 Tablet) 1 Each Tablet, 1 TAB PO PRN BID PRN for PAIN, Ref 0 (Reported) Entered as Reported by: FREDDIE STEEL RN on 10/09/18 0811 Last Action: Continued on 06/27/20 1019 by TARA HAYES MD Naproxen (Naproxen) 500 Mg Tablet, 1 TAB PO BID PRN for PAIN, #30 Ref 1 Prescribed by: GALILEO MONROY D.O. on 02/20/20 1150 Last Action: Continued on 06/27/20 1019 by TARA HAYES MD Oxycodone/Apap 10-325 (Percocet 10-325 Mg Tablet ) 1 Each Tablet, 1 TAB PO PRN Q6HRS PRN for PAIN for 14 Days, #60 Ref 0 Prescribed by: JOVAAN YEN MD on 10/11/18 1157 Last Action: Continued on 06/26/20 1016 by TARA HAYES MD Miscellaneous Medications Ferrous Sulfate (Iron Supplement) 325 Mg Tablet, 65 MG PO, (Reported) Entered as Reported by: AKBAR MARTE on 04/19/15 0919 Last Action: Continued on 06/27/20 1019 by TARA HAYES MD Pitavastatin Calcium (Livalo) 4 Mg Tablet, 4 MG PO, (Reported) Entered as Reported by: ANNABEL MARY on 09/01/18 1134 Last Action: HELD on 06/26/20 1016 by TARA HAYES MD Justicifation of Admission Dx: Justifications for Admission: Justification of Admission Dx: Yes TARA HAYES MD Jun 27, 2020 10:25
[2020-06-27 11:00] VITALS: BP 149/67
[2020-06-27] MEDS ORDERED: AMOXICILLIN/K CLAV 875/125MG TABLET. PO SCH (11:00)
[2020-06-27 15:00] VITALS: BP 135/55
--- NOTE | 2020-06-27 15:15 | NUR ---
Discharge orders placed. Discharge instructions/medications discussed with pt and mother. Demonstrated dressing change, xeroform and gauze roll. Mother voiced understanding. Supplies given to pt. Augmentin 875 #14 rx given to mother. Explained to caller he needs to fill rx and take a dose tonight. Discussed with pt he needs to make a f/u appt with wound clinic within the next 3 days. Pt voiced understanding of discharge instructions. JONATHAN Abraham wheeled pt off unit without complications
[2020-06-27] MEDS ORDERED: FERROUS SULFATE 325 MG TABLET. PO SCH (18:00)
== END 2020-06-27 15:15 | disposition home or self-care (01) | DRG 603 ==
LOC: ER 20:26 → 4 NORTH 23:36
PROVIDERS: ADMIT Internal Medicine; ATTEND Internal Medicine
PROC: 0HBNXZZ Excision of Left Foot Skin, External Approach (ICD-10-PCS; principal; 2020-06-26)
DX: L03.032 Cellulitis of left toe (principal); Z68.43 Body mass index [BMI] 50.0-59.9, adult; E44.1 Mild protein-calorie malnutrition; E11.621 Type 2 diabetes mellitus with foot ulcer; L97.529 Non-pressure chronic ulcer of other part of left foot with unspecified severity; L84 Corns and callosities; E78.00 Pure hypercholesterolemia, unspecified; E66.01 Morbid (severe) obesity due to excess calories; E78.5 Hyperlipidemia, unspecified; I10 Essential (primary) hypertension; J44.9 Chronic obstructive pulmonary disease, unspecified; G62.9 Polyneuropathy, unspecified; E11.42 Type 2 diabetes mellitus with diabetic polyneuropathy; Z82.49 Family history of ischemic heart disease and other diseases of the circulatory system
CPT/HCPCS: 36415; 73630; 80048; 80053; 81001; 82962; 83605; 85025; 85610; 87070; 93926; 94640; 94760; 96365; 96366; 96368; J1170; J1815; J2543; J3370; J7030; J7040; 99285-25; G0378; J7613; J7626; Q0163

== ENCOUNTER → 2020-07-05 | Outpatient (CLI) | payer MEDICAID ==
[2020-06-27 15:00] VITALS: BP 135/55
[~2020-07-05] MED LIST changes: +AMOX1TAB61 PO; +PERFLUTREN PROTEIN-A MICROSPHR 0.22 MG/ML 3 ML VIAL. IV ONE
--- NOTE | 2020-07-08 09:44 | CARD ---
MR#: [id number] Date of Study: 07/05/2020 Ordering Physician: BONITA SHELTON, Referring Physician: BONITA SHELTON, Tech: Shannan Cordoba APPROVED REPORT EXAM: Two-dimensional and M-mode echocardiogram with Doppler and color Doppler. Other Information Quality : FairHR: 100bpm Technically limited study due to Morbid obesity INDICATION Murmur RISK FACTORS Hypertension Hyperlipidemia 2D DIMENSIONS RVDd2.8 (2.9-3.5cm)Left Atrium(2D)3.8 (1.6-4.0cm) IVSd1.1 (0.7-1.1cm)Aortic Root(2D)2.8 (2.0-3.7cm) LVDd5.4 (3.9-5.9cm)LVOT Diameter1.9 (1.8-2.4cm) PWd1.2 (0.7-1.1cm)LVDs3.1 (2.5-4.0cm) FS (%) 42.4 %SV104.1 ml LVEF(%)73.0 (>50%) Aortic Valve AoV Peak Juan M.280.2cm/sAoV VTI48.0cm AO Peak GR.31.4mmHgLVOT Peak Juan M.133.4cm/s LVOT VTI 28.55cmAO Mean GR.19mmHg GRACIA (VMAX)0.62gc7KMX (VTI)1.64cm2 Pulmonary Valve PV Peak Pogxfxty533.3cm/sPV Peak Grad.7mmHg Tricuspid Valve TR P. Dziiwvqy775ti/sRAP AFRUPMKZ9afNp TR Peak Gr.36fsWsKLWK66xvTw LEFT VENTRICLE The left ventricle is normal size. There is borderline to mild concentric left ventricular hypertroph y. The left ventricular systolic function is normal and the ejection fraction is within normal range. The Ejection Fraction is 60-65%. There is normal LV segmental wall motion. Transmitral Doppler flow pattern is Grade II-pseudonormal filling dynamics. RIGHT VENTRICLE The right ventricle is mildly dilated. There is normal right ventricular wall thickness. The right ve ntricular systolic function is normal. ATRIA The left atrium is moderately dilated. The right atrium is mildly dilated. The interatrial septum is intact with no evidence for an atrial septal defect or patent foramen ovale as noted on 2-D or Dopple r imaging. AORTIC VALVE The aortic valve is not well visualized, it appears to be moderately calcified. Doppler and Color [place] w revealed no significant aortic regurgitation. Calculated aortic valve area is 1.40 cm2 with maximum pressure gradient of 43 mmHg and mean pressure gradient of 27 mmHg. There is mild to moderate valvul ar aortic stenosis. MITRAL VALVE The mitral valve is normal in structure and function. There is no evidence of mitral valve prolapse. There is no mitral valve stenosis. Doppler and Color-flow revealed trace mitral regurgitation. TRICUSPID VALVE The tricuspid valve is not well visualized. Doppler and Color Flow revealed trace tricuspid regurgita tion with an estimated PAP of 25 mmHg. There is no tricuspid valve stenosis. PULMONIC VALVE Not well visualized. Doppler and Color Flow revealed no pulmonic valvular regurgitation. There is no pulmonic valvular stenosis. GREAT VESSELS The aortic root is normal in size. The ascending aorta is normal in size. The IVC was not visualized. PERICARDIAL EFFUSION There is no evidence of significant pericardial effusion. Critical Notification Critical Value: No <Conclusion> The left ventricular systolic function is normal and the ejection fraction is within normal range. Th e Ejection Fraction is 60-65%. There is normal LV segmental wall motion. The aortic valve is not well visualized, it appears to be moderately calcified. Calculated aortic valve area is 1.40 cm2 with maximum pressure gradient of 43 mmHg and mean pressure gradient of 27 mmHg. There is mild to moderate valvular aortic stenosis. Signed by : Bonita Shelton, Electronically Approved : 07/08/2020 09:43:53
== END | disposition home or self-care (01) ==
LOC: ECHO 13:33
PROVIDERS: ATTEND Internal Medicine Cardiovascular Disease
DX: I35.1 Nonrheumatic aortic (valve) insufficiency (principal); I35.0 Nonrheumatic aortic (valve) stenosis; I51.7 Cardiomegaly
CPT/HCPCS: 93306; Q9956

== ENCOUNTER → 2020-09-04 | Outpatient (CLI) | payer MEDICAID ==
[~2020-09-04] MED LIST changes: +BUPIVACAINE MPF 0.25% 10 ML VIAL. IJ ONE; +IOHEXOL 300 MG/ML 50 ML VIAL. IJ ONE; +LIDOCAINE 1% Multi-Dose 20 ML VIAL. INJ ONE; -PERFLUTREN PROTEIN-A MICROSPHR 0.22 MG/ML 3 ML VIAL. IV ONE; +methylPREDNISolone ACETATE 80 MG/ML VIAL. IM ONE
--- NOTE | 2020-09-04 16:31 | RAD ---
Examination: ARTHROCENT MJR JT ASP/INJ RT History: Reason: OSTEOARTHRITIS 2.5 MINUTES FLUORO / Spl. Instructions: / History: Comparison/Correlation: None Findings: Risks and benefits of fluoroscopically guided injection into the right hip joint capsule were discussed with the patient and informed consent was obtained. Fluoroscopy was utilized for 2.5 minutes for both the right hip and left hip joint injections. Total of 3 fluoroscopic images were acquired. This procedure was technically challenging due to patient body habitus. ChloraPrep was utilized to findings the expected site of needle placement about the right groin region. 8 cc 1 percent lidocaine was administered. 22-gauge needle was placed near the superior aspect of the right femoral head-neck junction. 2 cc Omnipaque 300 was injected to confirm needle placement. 80 mg Depo-Medrol and 2 cc of 0.5 percent Marcaine as well as 1 cc of 1 percent lidocaine was then administered. Patient tolerated procedure well without immediate complications. Impression: Administration of Depo-Medrol, Marcaine, and lidocaine about the level of the right femoral head neck junction. Electronically signed by: James Moreno MD (09/04/2020 4:29 PM) [id number]
--- NOTE | 2020-09-04 16:35 | RAD ---
Examination: ARTHROCENT MJR JT ASP/INJ LEFT History: Reason: OSTEOARTHRITIS / Spl. Instructions: / History: Comparison/Correlation: None Findings: Risks and benefits of left hip joint injection were discussed with the patient and informed consent was obtained. Fluoroscopy was used for a total of 2.5 minutes for both the right hip and left hip joint injections. Total of 4 images were acquired. This procedure was technically challenging due to patient's body habitus. Cleansing with ChloraPrep was performed at the left groin region for placement of the needle. A total of 8 cc 1 percent lidocaine was administered for local anesthetic. 20-gauge needle was placed under fluoroscopic guidance into the lateral left hip joint capsule. Needle was placed at the lateral base of the femoral neck. 1.5 cc of Omnipaque 300 was administered to confirm needle placement. Subsequently, 80 mg of Depo-Medrol, 2 cc 0.5 percent Marcaine and 1 cc of 1 percent lidocaine was administered under fluoroscopic guidance. Impression: Administration of Depo-Medrol, Marcaine, and lidocaine into the left hip joint capsule region. Electronically signed by: James Moreno MD (09/04/2020 4:32 PM) [id number]
== END | disposition home or self-care (01) ==
LOC: RAD 13:27
PROVIDERS: ATTEND Family Medicine
DX: M16.0 Bilateral primary osteoarthritis of hip (principal); I10 Essential (primary) hypertension; E78.00 Pure hypercholesterolemia, unspecified; J44.9 Chronic obstructive pulmonary disease, unspecified; K21.9 Gastro-esophageal reflux disease without esophagitis; G47.30 Sleep apnea, unspecified; E11.9 Type 2 diabetes mellitus without complications; F41.9 Anxiety disorder, unspecified; F32.9 Major depressive disorder, single episode, unspecified; E66.9 Obesity, unspecified; Z79.82 Long term (current) use of aspirin; Z79.84 Long term (current) use of oral hypoglycemic drugs; Z79.899 Other long term (current) drug therapy; Z98.890 Other specified postprocedural states; Z87.891 Personal history of nicotine dependence
CPT/HCPCS: 20610; 77002; J1040; J3490; Q9967

== ENCOUNTER 2020-11-15 05:09 | Emergency (ER) | payer MEDICAID, MEDICARE ==
[~2020-11-15] VITALS: Ht 167.6 cm; Wt 159.1 kg
[~2020-11-15 05:09] MED LIST changes: -BUPIVACAINE MPF 0.25% 10 ML VIAL. IJ ONE; -CLIN150C14 PO; +CLIN150C15 PO; -IOHEXOL 300 MG/ML 50 ML VIAL. IJ ONE; -LIDOCAINE 1% Multi-Dose 20 ML VIAL. INJ ONE; -methylPREDNISolone ACETATE 80 MG/ML VIAL. IM ONE
--- NOTE | 2020-11-15 05:35 | ED.ADGEN ---
Past Medical History Past Medical History: Anemia, COPD, Diabetes-Type II, High Cholesterol, H ypertension, Other Additional Past Medical Histor: neuropathy, degenerative rheumatoid arthritis bilateral hip/back Past Surgical History: No Surgical History Smoking Status: Never Smoker Alcohol Use: Rarely Drug Use: None General Adult EDM: Chief Complaint: HIP PAIN HPI: HPI: Patient is a 45 year old male coming in accompanied with his by his mother for right hip pain. Yesterday morning, about 20 hours prior to arrival, , He was getting out of the shower and felt a "pop" in his right hip. Has been able to ambulate with pain. Patient states the pain is worse with standing and a little better with sitting but it starts to gradually increase. Took one of his hydrocodone's about 2:30 AM. History of chronic osteoarthritis of both hips. Patient's last hip steroid injections were in August. He also has a wound to his right dominguez that his mom has been doing wound care on. Wound started as a scrape to the leg. Denies any recent illness, fevers, cough, vomiting, diarrhea. Review of Systems: Review of Systems: All other systems within normal limits except for as noted in the HPI Allergies: Allergies: Allergies Coded Allergies Type Severity Reaction Last Updated Verified No Known Drug Allergies 10/09/18 No Physical Exam: PE: Constitutional: Well developed, well nourished, no acute distress, non-toxic appearance, obese. [] HENT: Normocephalic, atraumatic, bilateral external ears normal, nose normal. [] Eyes: PERRLA, conjunctiva normal, no discharge. [] Neck: No rigidity, supple, no stridor. [] Cardiovascular: Regular rate and rhythm, brisk cap refill [] Lungs & Thorax: Non labored symmetric respirations, no tachypnea or respiratory distress [] Abdomen: Soft, nondistended. Skin: Warm, dry, no erythema, no rash., Wound with surrounding erythema to right dominguez [] Back: No tenderness, no CVA tenderness. [] Extremities: No deformities, range of motion grossly intact, no lower extremity edema [] Neurologic: Alert and oriented X 3, no focal deficits noted. [] Psychologic: Affect normal, judgement normal, mood normal. [] Current Patient Data: Vital Signs: Vital Signs Date Time Temp Pulse Resp B/P (MAP) Pulse Ox O2 Delivery O2 Flow Rate FiO2 11/15/20 05:13 97.6 96 23 120/76 (91) 97 Room Air 97.6 EKG: EKG: [] Heart Score: Risk Factors: Risk Factors: DM, Current or recent (<one month) smoker, HTN, HLP, family history of CAD, obesity. Risk Scores: Score 0 - 3: 2.5% MACE over next 6 weeks - Discharge Home Score 4 - 6: 20.3% MACE over next 6 weeks - Admit for Clinical Observation Score 7 - 10: 72.7% MACE over next 6 weeks - Early Invasive Strategies Radiology/Procedures: Radiology/Procedures: [] Course & Med Decision Making: Course & Med Decision Making Pertinent Labs and Imaging studies reviewed. (See chart for details) [] Dragon Disclaimer: Dragon Disclaimer: This electronic medical record was generated, in whole or in part, using a voice recognition dictation system. Departure Departure Referrals: IFTIKHAR FERNANDEZ MD (PCP) LIO BALDWIN MD Nov 15, 2020 05:35
[2020-11-15] MEDS ORDERED: HYDROmorphone 2 MG/ML VIAL IM ONE (06:30)
--- NOTE | 2020-11-15 07:17 | RAD ---
XR BILATERAL HIP (WITH OR WITHOUT PELVIS) 2 VIEWS_RIGHT 11/15/2020 5:41 AM INDICATION: Right hip pain COMPARISON: None available. TECHNIQUE: AP view the pelvis and 2 dedicated views the right hip are provided. FINDINGS/ IMPRESSION: Evaluation of the mid segment body habitus and technique. There is no acute fracture or dislocation. Mild/moderate joint space narrowing involving the right femoral acetabular joint compatible with mild to moderate osteoarthrosis. There is decreased femoral head neck offset which may be associated with femoral acetabular impingement. Pelvic ring is intact. Sacroiliac joints and pubic symphysis are well aligned. Superior and inferior pubic rami are intact. No definite acetabular fracture. Iliac bones are intact. Electronically signed by: Jamila Yee MD (11/15/2020 7:13 AM) [id number]
[2020-11-15 07:20] VITALS: BP 137/65
--- NOTE | 2020-11-15 07:21 | RAD ---
PQRS Compliance Statement: One or more of the following individualized dose reduction techniques were utilized for this examinat ion: 1. Automated exposure control 2. Adjustment of the mA and/or kV according to patient size 3. Use of iterative reconstruction technique CT PELVIS WO 11/15/2020 6:55 AM Indication: Right hip pain COMPARISON: None available. TECHNIQUE: Multiple axial CT images of the pelvis were obtained without intravenous contrast. Coronal and sagittal reformats are provided. FINDINGS: Visualized kidneys are normal in appearance. No hydronephrosis. Urinary bladder is within normal limi ts given degree of distention. Small nodular are normal in caliber. No bowel obstruction or inflammat ion. Gallbladder is present. No suspicious pelvic mass. Small umbilical hernia containing fat. Left i nguinal lymph node measures 9.5 mm by short axis. Bilateral nonenlarged lymph nodes are identified. R ight common femoral lymph node measures 2.0 cm (series 3, image 61). There is a left external iliac l ymph node measuring 1.4 cm (series 3, image 41). Right external iliac lymph node measures 1.7 cm (ser ies 3, image 54). There is no acute fracture or dislocation. There is severe superolateral femoral acetabular joint spa ce narrowing with subcortical sclerosis and subcortical cystic change along the superolateral aspect of the acetabulum. No definite fracture is visualized. Extensive femoral and acetabular marginal oste ophytosis identified. Findings compatible with severe osteoarthrosis. Greater and lesser trochanters are intact. Pelvic ring is intact. Superior and inferior pubic rami are intact. Sacroiliac joints and pubic symphysis are well aligned. Visualized portions of the lower lumbar spine appear normal withou t compression deformity. IMPRESSION: 1. No acute fracture or dislocation. Severe osteoarthrosis the right hip. 2. Enlarged pelvic lymphadenopathy. Findings are nonspecific, however may be pathologic and further c haracterization with CT abdomen/pelvis with contrast, PET/CT or 3 month follow-up pelvic CT is recomm ended. Electronically signed by: Jamila Yee MD (11/15/2020 7:18 AM) [id number]
== END 2020-11-15 07:42 | disposition home or self-care (01) ==
LOC: ER 05:09
DX: M25.551 Pain in right hip (principal); J44.9 Chronic obstructive pulmonary disease, unspecified; E11.9 Type 2 diabetes mellitus without complications; E78.00 Pure hypercholesterolemia, unspecified; I10 Essential (primary) hypertension
CPT/HCPCS: 72192; 73502; 96372; 99284; J1170

== ENCOUNTER 2021-01-25 08:35 | Emergency (ER) | payer MEDICAID ==
[~2021-01-25] VITALS: Ht 167.6 cm; Wt 159.0 kg
--- NOTE | 2021-01-25 09:20 | RAD ---
XR CHEST 1V History: Reason: chest pain / Spl. Instructions: / History: Comparison: February 20, 2020 Findings: Linear left midlung atelectasis or scarring. No consolidation or pleural effusion. Normal heart size. No pneumothorax. Impression: 1. No acute cardiopulmonary process. Electronically signed by: Aston Beach DO (01/25/2021 9:18 AM) [email or web address]
[2021-01-25 09:40] LABS: BASO % 1 % (0-3); EOS # 0.3 x10^3/uL (0.0-0.7); EOS % 4 % (0-3); HEMATOCRIT 29.9 % (39.0-53.0); HEMOGLOBIN 9.6 g/dL (13.0-17.5); LYMPH # 1.4 x10^3/uL (1.0-4.8); LYMPH % 23 % (24-48); MEAN CORPUSCULAR HEMOGLOBIN 28 pg (25-35); MEAN CORPUSCULAR HGB CONC 32 g/dL (31-37); MEAN CORPUSCULAR VOLUME 88 fL (79-100); MONO # 0.4 x10^3/uL (0.0-1.1); MONO % 7 % (0-9); NEUT # 4.2 x10^3/uL (1.8-7.7); NEUT % 66 % (31-73); PLATELET COUNT 209 x10^3/uL (140-400); RED BLOOD COUNT 3.41 x10^6/uL (4.30-5.70); WHITE BLOOD COUNT 6.3 x10^3/uL (4.0-11.0)
[2021-01-25 09:52] LABS: CALCIUM 9.3 mg/dL (8.5-10.1); CREATININE 1.4 mg/dL (0.7-1.3); GFR 54.3; POTASSIUM 4.8 mmol/L (3.5-5.1)
[2021-01-25 09:58] LABS: ALBUMIN 3.2 g/dL (3.4-5.0); ALBUMIN/GLOBULIN RATIO 0.6 (1.0-1.7); MAGNESIUM 1.7 mg/dL (1.8-2.4); TOTAL BILIRUBIN 0.3 mg/dL (0.2-1.0); TOTAL PROTEIN 8.3 g/dL (6.4-8.2)
--- NOTE | 2021-01-25 09:58 | RAD ---
Exam performed: Left foot 3 views. Clinical Indication: Left great toe infection. Date of Service:01/25/2021. Comparison :None available Findings: PA, oblique and lateral radiographs of the foot reveal the osseous structures to be intact and well a ligned. There is no bony erosion or periosteal reaction. There is diffuse soft tissue swelling around the first toe and the medial aspect of the foot. The joint spaces are well preserved and the articul ar margins are smooth. Impression: 1. Diffuse soft tissue swelling without underlying bony abnormality of the left foot. 2. Findings are consistent with cellulitis. Electronically signed by: Tiffanie العراقي MD (01/25/2021 9:56 AM) [id number]
[2021-01-25] MEDS ORDERED: MORPHINE SULFATE 4 MG/ML VIAL. IV ONE (10:00)
--- NOTE | 2021-01-25 11:44 | EKG ---
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
--- NOTE | 2021-01-25 12:37 | EKG ---
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
[2021-01-25] MEDS ORDERED: SULF1TAB24 PO (12:39)
--- NOTE | 2021-01-25 12:39 | PHYS DOC ---
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 Patient states that over the last 3 days he has been having intermittent sensation of lightheadedness and feeling mildly dizzy. Patient states that he was was with his sister last night who is a nurse and took his blood pressure noted that his blood pressure was low with a systolic of 90. Patient states that spontaneously improved. Patient also notes that over the last week he has been having worsening changes in the left great toe. Patient states that he was seen and evaluated by physician about a week ago as he was concerned it was infected. Patient states that he was fine with it yesterday noted with smelly discharge emanating from it. Denies any fever, chills, nausea or vomiting Review of Systems Review of Systems Constitutional: Denies fever or chills [] Eyes: Denies change in visual acuity, redness, or eye pain [] HENT: Denies nasal congestion or sore throat [] Respiratory: Denies cough or shortness of breath [] Cardiovascular: No additional information not addressed in HPI [] GI: Denies abdominal pain, nausea, vomiting, bloody stools or diarrhea [] : Denies dysuria or hematuria [] Musculoskeletal: Denies back pain or joint pain [] Integument: Denies rash or skin lesions [] Neurologic: Denies headache, focal weakness or sensory changes [] Endocrine: Denies polyuria or polydipsia [] All other systems were reviewed and found to be within normal limits, except as documented in this note. Current Medications Current Medications Current Medications Medications (Trade) Dose Ordered Sig/Carlotta Start Time Stop Time Status Last Admin Dose Admin Morphine Sulfate (Morphine Sulfate) 4 mg 1X ONCE 01/25/21 10:00 01/25/21 10:09 DC 01/25/21 10:22 4 MG Allergies Allergies Allergies Coded Allergies Type Severity Reaction Last Updated Verified No Known Drug Allergies 12/2/18 No Physical Exam Physical Exam Constitutional: Well developed, well nourished, no acute distress, non-toxic appearance. [] HENT: Normocephalic, atraumatic, bilateral external ears normal, oropharynx moist, no oral exudates, nose normal. [] Eyes: PERRLA, EOMI, conjunctiva normal, no discharge. [] Neck: Normal range of motion, no tenderness, supple, no stridor. [] Cardiovascular:Heart rate regular rhythm, no murmur [] Lungs & Thorax: Bilateral breath sounds clear to auscultation [] Abdomen: Bowel sounds normal, soft, no tenderness, no masses, no pulsatile masses. [] Skin: Warm, dry, no erythema, no rash. [] Back: No tenderness, no CVA tenderness. [] Extremities: No tenderness, no cyanosis, no clubbing, ROM intact, no edema. R great [place] with small area of discoloration at the distal aspect with minimal tenderness ,no erythema [] Neurologic: Alert and oriented X 3, normal motor function, normal sensory function, no focal deficits noted. [] Psychologic: Affect normal, judgement normal, mood normal. [] Current Patient Data Vital Signs Vital Signs Date Time Temp Pulse Resp B/P (MAP) Pulse Ox O2 Delivery O2 Flow Rate FiO2 01/25/21 10:22 18 99 Room Air 01/25/21 09:54 108/55 (72) 01/25/21 08:57 98.7 99 98.7 Lab Values Laboratory Tests Test 01/25/21 09:19 01/25/21 11:13 White Blood Count 6.3 x10^3/uL (4.0-11.0) Red Blood Count 3.41 x10^6/uL (4.30-5.70) L Hemoglobin 9.6 g/dL (13.0-17.5) L Hematocrit 29.9 % (39.0-53.0) L Mean Corpuscular Volume 88 fL (79-100) Mean Corpuscular Hemoglobin 28 pg (25-35) Mean Corpuscular Hemoglobin Concent 32 g/dL (31-37) Red Cell Distribution Width 19.0 % (11.5-14.5) H Platelet Count 209 x10^3/uL (140-400) Neutrophils (%) (Auto) 66 % (31-73) Lymphocytes (%) (Auto) 23 % (24-48) L Monocytes (%) (Auto) 7 % (0-9) Eosinophils (%) (Auto) 4 % (0-3) H Basophils (%) (Auto) 1 % (0-3) Neutrophils # (Auto) 4.2 x10^3/uL (1.8-7.7) Lymphocytes # (Auto) 1.4 x10^3/uL (1.0-4.8) Monocytes # (Auto) 0.4 x10^3/uL (0.0-1.1) Eosinophils # (Auto) 0.3 x10^3/uL (0.0-0.7) Basophils # (Auto) 0.0 x10^3/uL (0.0-0.2) Erythrocyte Sedimentation Rate 96 (0-15) H Sodium Level 135 mmol/L (136-145) L Potassium Level 4.8 mmol/L (3.5-5.1) Chloride Level 99 mmol/L (98-107) Carbon Dioxide Level 25 mmol/L (21-32) Anion Gap 11 (6-14) Blood Urea Nitrogen 63 mg/dL (8-26) H Creatinine 1.4 mg/dL (0.7-1.3) H Estimated GFR (Cockcroft-Gault) 54.3 BUN/Creatinine Ratio 45 (6-20) H Glucose Level 220 mg/dL (70-99) H Calcium Level 9.3 mg/dL (8.5-10.1) Magnesium Level 1.7 mg/dL (1.8-2.4) L Total Bilirubin 0.3 mg/dL (0.2-1.0) Aspartate Amino Transferase (AST) 15 U/L (15-37) Alanine Aminotransferase (ALT) 26 U/L (16-63) Alkaline Phosphatase 80 U/L (46-116) Troponin I Quantitative < 0.017 ng/mL (0.000-0.055) C-Reactive Protein, Quantitative 28.6 mg/L (0-3.3) H Total Protein 8.3 g/dL (6.4-8.2) H Albumin 3.2 g/dL (3.4-5.0) L Albumin/Globulin Ratio 0.6 (1.0-1.7) L Lipase 268 U/L (73-393) Lactic Acid Level 1.5 mmol/L (0.4-2.0) Laboratory Tests 01/25/21 09:19 Laboratory Tests 01/25/21 09:19 EKG EKG [] Radiology/Procedures Radiology/Procedures [] Course & Med Decision Making Course & Med Decision Making Pertinent Labs and Imaging studies reviewed. (See chart for details) 45M with complaint of dizziness and what appears to be a new onset of upgrade to infection that does raise concern for acute osteomyelitis. We will monitor the patient for any changes in vital signs and obtain labs to make sure there is no evidence of underlying cardiac abnormality. Will obtain an x-ray to make sure there is no evidence of osteomyelitis. 12:36 -patient remains asymptomatic without any changes in vital signs and telemetry monitoring. Labs unremarkable and x-ray without evidence of osteomyelitis. This time will discharge the patient home with course of Bactrim. Patient verbalizes understanding agreement with discharge plan Dragon Disclaimer Dragon Disclaimer This electronic medical record was generated, in whole or in part, using a voice recognition dictation system. Departure Departure Impression: Primary Impression: Diabetic foot ulcer Disposition: 01 DC HOME SELF CARE/HOMELESS Condition: GOOD Referrals: IFTIKHAR FERNANDEZ MD (PCP) Patient Instructions: Wound Care, Bccu-[id number] Additional Instructions: EMERGENCY DEPARTMENT GENERAL DISCHARGE INSTRUCTIONS Thank you for coming to [facility] Emergency Department (ED) today and trusting us with you care. We trust that you had a positive experience in our Emergency Department. If you wish to speak to the department management, you may call the Director at [phone]. YOUR FOLLOW UP INSTRUCTIONS ARE FOLLOWS: 1. Do you have a private Doctor? If you do not have a private doctor, please ask for a resource list of physicians or clinics that may be able to assist you with follow up care. 2. The Emergency Physicain has interpreted your x-rays. The X-Ray specialist will also review them. If there is a change in the findings, you will be notified in 48 hours when at all possible. 3. A lab test or culture has been done, your results will be reviewed and you will be notified if you need a change in treatment. ADDITIONAL INSTRUCTIONS AND INFORMATION: 1. Your care today has been supervised by a physician who is specially trained in emergency care. Many problems require more than one evaluation for a complete diagnosis and treatment. We recommend that you schedule your follow up appointment as recommended to ensure complete treatment of you illness or injury. If you are unable to obtain follow up care and continue to have a problem, or if your condition worsens, we recommend that you return to the ED. 2. We are not able to safely determine your condition over the phone nor are we able to give sound medical advice over the phone. For these safety reasons, if you call for medical advice we will ask you to come to the ED for further evaluation. 3. If you have any questions regarding these discharge instructions please call the ED at [phone]. SAFETY INFORMATION: In the interest of safety, wellness, and injury prevention; we encourage you to wear your sealbelt, if you smoke; quite smoking, and we encourage family to use a protect kiran helmet for bicycling and other sporting events that present an increased risk for head injury. IF YOUR SYMPTOMS WORSEN OR NEW SYMPTOMS DEVELOP, OR YOU HAVE CONCERNS ABOUT YOUR CONDITION; OR IF YOUR CONDITION WORSENS WHILE YOU ARE WAITING FOR YOUR FOLLOW UP APPOINTMENT; EITHER CONTACT YOUR PRIMARY CARE DOCTOR, THE PHYSICIAN WHOSE NAME AND NUMBER YOU WERE GIVEN, OR RETURN TO THE ED IMMEDIATELY. Scripts Sulfamethoxazole/Trimethoprim (BACTRIM DS TABLET) 1 Each Tablet 1 TAB PO BID for infection, #14 TAB Prov: SHANNON TIJERINA MD 01/25/21 SHANNON TIJERINA MD Jan 25, 2021 12:39
[2021-01-25 12:47] VITALS: BP 109/52
--- NOTE | 2021-01-27 06:49 | EKG ---
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
== END 2021-01-25 13:00 | disposition home or self-care (01) ==
LOC: ER 08:35
DX: E11.621 Type 2 diabetes mellitus with foot ulcer (principal); E11.40 Type 2 diabetes mellitus with diabetic neuropathy, unspecified; J44.9 Chronic obstructive pulmonary disease, unspecified; E78.00 Pure hypercholesterolemia, unspecified; I10 Essential (primary) hypertension
CPT/HCPCS: 36415; 71045; 73630; 80053; 83605; 83690; 83735; 84484; 85025; 85651; 86140; 93005; 96374; 99285; J2270

== ENCOUNTER → 2021-03-03 | Outpatient (CLI) | payer MEDICAID ==
[~2021-03-03] MED LIST changes: +BUPIVACAINE MPF 0.5% 30 ML VIAL. INJ ONE; +IOHEXOL 300 MG/ML 50 ML VIAL. INT ART ONE; +KETO5DRO24 OD; +LIDOCAINE 1% Multi-Dose 20 ML VIAL. INJ ONE; +SULF1TAB24 PO; +methylPREDNISolone ACETATE 80 MG/ML VIAL. INJ ONE
--- NOTE | 2021-03-03 11:01 | RAD ---
EXAM: Fluoroscopic guided bilateral therapeutic injection. HISTORY: Hip pain. TECHNIQUE: The risks of the procedure were discussed with the patient and written and verbal consent was obtained. A time out was performed. Fluoroscopic imaging of the right hip was performed and a sit e overlying the joint space was selected for needle entry. The skin overlying this region was sterile ly prepped, draped and infiltrated with 1% lidocaine. A 22-gauge needle was then advanced into the gris int space with fluoroscopic guidance. Appropriate needle tip positioning was confirmed with injection of 2 cc Omnipaque 300 contrast. Subsequently, a solution containing 8 cc bupivacaine 0.5 percent and 2 cc Depo-Medrol 80 mg was injected into the joint space. Fluoroscopic images demonstrate intraartic ular accumulation of contrast. The needle was removed and a sterile bandage was placed at the needle entry site. Susceptibility, fluoroscopic imaging of the left hip was performed and site overlying the joint space with slight infrarenal entry. The skin overlying this region was sterilely prepped, draped and infil trated with 1% lidocaine. A 22-gauge needle was then advanced into the joint space with fluoroscopic guidance. Appropriate needle tip positioning was confirmed with injection of 2 cc Omnipaque 300 contr ast. Subsequently, a solution containing 8 cc bupivacaine 0.5 percent and 2 cc Depo-Medrol 80 mg was injected into the joint space. Fluoroscopic images demonstrate intraarticular accumulation of contras t. The needle was removed and a sterile bandage was placed at the needle entry site. The patient tolerated the procedure without difficulty and was discharged in stable condition. The to rosette fluoroscopy time was 1.4 minutes and 6 fluoroscopic images were obtained IMPRESSION: Successful fluoroscopic guided bilateral therapeutic hip injection. Electronically signed by: Alexa Zhong MD (03/03/2021 10:59 AM) [id number]
== END | disposition home or self-care (01) ==
LOC: RAD 08:43
PROVIDERS: ATTEND Nurse Practitioner Gerontology
DX: M16.0 Bilateral primary osteoarthritis of hip (principal); I10 Essential (primary) hypertension; E78.00 Pure hypercholesterolemia, unspecified; J44.9 Chronic obstructive pulmonary disease, unspecified; G47.30 Sleep apnea, unspecified; E66.9 Obesity, unspecified; K21.9 Gastro-esophageal reflux disease without esophagitis; M19.90 Unspecified osteoarthritis, unspecified site; E11.9 Type 2 diabetes mellitus without complications; F41.9 Anxiety disorder, unspecified; F32.9 Major depressive disorder, single episode, unspecified; Z79.82 Long term (current) use of aspirin; Z79.4 Long term (current) use of insulin; Z79.899 Other long term (current) drug therapy; Z98.890 Other specified postprocedural states
CPT/HCPCS: 20610; 77002; J1040; J3490; Q9967; 20605-50

== ENCOUNTER → 2021-03-05 | Outpatient (CLI) | payer MEDICAID ==
[~2021-03-05] MED LIST changes: -BUPIVACAINE MPF 0.5% 30 ML VIAL. INJ ONE; -IOHEXOL 300 MG/ML 50 ML VIAL. INT ART ONE; -KETO5DRO24 OD; -LIDOCAINE 1% Multi-Dose 20 ML VIAL. INJ ONE; +PERFLUTREN PROTEIN-A MICROSPHR 0.22 MG/ML 3 ML VIAL. IV ONE; -methylPREDNISolone ACETATE 80 MG/ML VIAL. INJ ONE
--- NOTE | 2021-03-06 09:30 | CARD ---
MR#: [id number] Date of Study: 03/05/2021 Ordering Physician: BONITA CH, Referring Physician: BONITA CH, Tech: Odilia Dao [facility] APPROVED REPORT EXAM: Two-dimensional and M-mode echocardiogram with Doppler and color Doppler. Other Information Quality : Technically Limited Technically limited study due to morbid obesity INDICATION Murmur Echo Enhancing Agent Agent/Amount Used: Optison 2mL 2D DIMENSIONS RVDd3.2 (2.9-3.5cm)Left Atrium(2D)3.3 (1.6-4.0cm) IVSd1.1 (0.7-1.1cm)Aortic Root(2D)2.9 (2.0-3.7cm) LVDd4.8 (3.9-5.9cm)LVOT Diameter2.1 (1.8-2.4cm) PWd1.3 (0.7-1.1cm)LVDs3.5 (2.5-4.0cm) FS (%) 28.1 %SV58.6 ml LVEF(%)54.3 (>50%) Aortic Valve AoV Peak Juan M.362.1cm/sAoV VTI72.7cm AO Peak GR.52.5mmHgLVOT Peak Juan M.97.5cm/s AO Mean GR.32mmHgAVA (VMAX)0.89cm2 GRACIA (VTI)1.00cm2 Mitral Valve MV E Efjahtkg800.2cm/sMV DECEL LOTN631xe MV A Cfzqantj48.7cm/sE/A Ratio1.6 Tricuspid Valve TR P. Lqtmiibq092hl/sRAP YXDLINBM7tnBq TR Peak Gr.11wqRaTOMB45zbUn LEFT VENTRICLE The left ventricle is normal size. There is mild concentric left ventricular hypertrophy. The left ve ntricular systolic function is normal. The Ejection Fraction is 55-60%. There is normal LV segmental wall motion. The left ventricular diastolic function and filling is normal for age. RIGHT VENTRICLE The right ventricle is normal size. The right ventricular systolic function is normal. ATRIA The left atrium size is normal. The right atrium size is normal. The interatrial septum is intact wit h no evidence for an atrial septal defect or patent foramen ovale as noted on 2-D or Doppler imaging. AORTIC VALVE The aortic valve is calcified and displays decreased opening. Doppler and Color Flow revealed no sign ificant aortic regurgitation. Calculated aortic valve area is 1.0 cm2 with maximum pressure gradient of 53 mmHg and mean pressure gradient of 33 mmHg. Doppler and color-flow analysis revealed moderate a ortic stenosis. MITRAL VALVE The mitral valve is normal in structure and function. Mitral annular calcification is mild. There is no evidence of mitral valve prolapse. There is no mitral valve stenosis. Doppler and Color Flow revea led no mitral valve regurgitation noted. TRICUSPID VALVE The tricuspid valve is normal in structure and function. Doppler and Color Flow revealed trace tricus pid regurgitation. The PA pressure was estimated at 26 mmHg. There is no tricuspid valve stenosis. PULMONIC VALVE The pulmonic valve is not well visualized. Doppler and Color Flow revealed no pulmonic valvular regur gitation. There is no pulmonic valvular stenosis. GREAT VESSELS The aortic root is normal in size. The ascending aorta is normal in size. The IVC was not visualized. PERICARDIAL EFFUSION There is no evidence of significant pericardial effusion. Critical Notification Critical Value: No <Conclusion> Technically difficult study. Optison echo contrast used for better definition. The left ventricular systolic function is normal. The Ejection Fraction is 55-60%. There is normal LV segmental wall motion. Moderate aortic stenosis with mean gradient 33 mm Hg. Trace tricuspid regurgitation. The PA pressure was estimated at 26 mmHg. There is no evidence of significant pericardial effusion. Signed by : Kirk Jones, Electronically Approved : 03/06/2021 09:30:04
== END ==
LOC: ECHO 08:27
PROVIDERS: ATTEND Internal Medicine Cardiovascular Disease
DX: I08.0 Rheumatic disorders of both mitral and aortic valves (principal)
CPT/HCPCS: C8929; Q9956

== ENCOUNTER 2021-03-09 07:10 | Emergency (ER) | payer MEDICAID ==
[~2021-03-09] VITALS: Ht 167.6 cm; Wt 180.0 kg
[~2021-03-09 07:10] MED LIST changes: -PERFLUTREN PROTEIN-A MICROSPHR 0.22 MG/ML 3 ML VIAL. IV ONE
[2021-03-09 07:15] VITALS: BP 154/65
[2021-03-09] MEDS ORDERED: TETRACAINE 0.5% OPHTH SOLUTION 4ML BOTTLE. OD ONE (07:30)
[2021-03-09] MEDS ORDERED: FLUORESCEIN OPHTH TEST STRIP. OD ONE (07:30)
[2021-03-09] MEDS ORDERED: KETO5DRO24 OD (07:51)
--- NOTE | 2021-03-09 07:51 | ED.ADGEN ---
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 Patient states around 2 and half to 3 hours prior to arrival the dog jumped on him and scratched his right eye. Patient states he has had eye pain and tearing since. No other injuries. Patient states his tetanus is up-to-date. Does not wear contacts or glasses. Review of Systems: Review of Systems: All other systems within normal limits except for as noted in the HPI Current Medications: Current Medications Medications (Trade) Dose Ordered Sig/Carlotta Start Time Stop Time Status Last Admin Dose Admin Fluorescein Sodium (Ful-Josiane) 1 strip 1X ONCE 03/09/21 07:30 03/09/21 07:31 DC 03/09/21 07:37 1 STRIP Tetracaine HCl (Tetracaine) 1 drop 1X ONCE 03/09/21 07:30 03/09/21 07:31 DC 03/09/21 07:37 1 DROP Allergies: Allergies: Allergies Coded Allergies Type Severity Reaction Last Updated Verified No Known Drug Allergies 10/09/18 No Physical Exam: PE: Constitutional: Well developed, well nourished, no acute distress, non-toxic appearance. [] HENT: Normocephalic, atraumatic, bilateral external ears normal, nose normal. [] Eyes: PERRLA, conjunctiva normal, no discharge. Extraocular was intact, pupils equal, viewed with fluorescein, abrasions over cornea, no Andres sign, no foreign body [] Neck: No rigidity, supple, no stridor. [] Cardiovascular: Regular rate and rhythm, brisk cap refill [] Lungs & Thorax: Non labored symmetric respirations, no tachypnea or respiratory distress [] Abdomen: Soft, nondistended. Skin: Warm, dry, no erythema, no rash. [] Back: Unremarkable Extremities: No deformities, range of motion grossly intact, no lower extremity edema [] Neurologic: Alert and oriented X 3, no focal deficits noted. [] Psychologic: Affect normal, judgement normal, mood normal. [] Current Patient Data: Vital Signs: Vital Signs Date Time Temp Pulse Resp B/P (MAP) Pulse Ox O2 Delivery O2 Flow Rate FiO2 03/09/21 07:15 98.0 99 18 154/65 (94) 95 Room Air 98.0 EKG: EKG: [] Heart Score: C/O Chest Pain: No Risk Factors: Risk Factors: DM, Current or recent (<one month) smoker, HTN, HLP, family history of CAD, obesity. Risk Scores: Score 0 - 3: 2.5% MACE over next 6 weeks - Discharge Home Score 4 - 6: 20.3% MACE over next 6 weeks - Admit for Clinical Observation Score 7 - 10: 72.7% MACE over next 6 weeks - Early Invasive Strategies Radiology/Procedures: Radiology/Procedures: [] Course & Med Decision Making: Course & Med Decision Making Pertinent Labs and Imaging studies reviewed. (See chart for details) Pain completely relieved with tetracaine [] Dragon Disclaimer: Dragon Disclaimer: This electronic medical record was generated, in whole or in part, using a voice recognition dictation system. Departure Departure Impression: Primary Impression: Corneal abrasion, right Disposition: HOME / SELF CARE / HOMELESS Condition: STABLE Referrals: IFTIKHAR FENRANDEZ MD (PCP) Patient Instructions: Eye - Corneal Abrasion Additional Instructions: Ciprofloxacin eyedrops: 2 drops in right eye every 6 hours for 5 days Scripts Ketorolac Tromethamine (KETOROLAC TROMETHAMINE) 5 Ml Drops 1 DROP OD QID PRN for PAIN, #5 ML 0 Refills Prov: LIO BALDWIN MD 03/09/21 LIO BALDWIN MD March 09, 2021 07:51
[2021-03-09] MEDS ORDERED: CIPROFLOXACIN 0.3% OPHTH SOLUTION 5ML BOTTLE. OD ONE (08:00)
== END 2021-03-09 08:22 | disposition home or self-care (01) ==
LOC: ER 07:10
DX: S05.01XA Injury of conjunctiva and corneal abrasion without foreign body, right eye, initial encounter (principal); J44.9 Chronic obstructive pulmonary disease, unspecified; E11.40 Type 2 diabetes mellitus with diabetic neuropathy, unspecified; E78.00 Pure hypercholesterolemia, unspecified; X58.XXXA Exposure to other specified factors, initial encounter; Y93.89 Activity, other specified; Y92.89 Other specified places as the place of occurrence of the external cause; Y99.8 Other external cause status
CPT/HCPCS: 99284

== ENCOUNTER → 2021-03-31 | Outpatient (CLI) | payer MEDICARE, MEDICAID ==
[2021-03-09 07:15] VITALS: BP 154/65
[~2021-03-31] MED LIST changes: +KETO5DRO24 OD
== END ==
LOC: LAB 12:58
PROVIDERS: ATTEND Internal Medicine Cardiovascular Disease
DX: Z01.812 Encounter for preprocedural laboratory examination (principal); Z20.822 Contact with and (suspected) exposure to COVID-19
CPT/HCPCS: U0003; U0005

== ENCOUNTER 2021-04-03 06:39 | Outpatient (CLI) | payer MEDICARE, MEDICAID ==
[~2021-04-03] VITALS: Ht 167.6 cm; Wt 156.8 kg
[~2021-04-03 06:39] MED LIST changes: +HYDROmorphone 2 MG/ML VIAL IVP PRN; +IV RINGERS,LACTATED 1000ML 1,000 ML IV SCH; +MORPHINE SULFATE 2 MG/ML VIAL. IVP PRN; +PROCHLORPERAZINE 10 MG/2 ML VIAL. IVP PRN; +fentaNYL PF VIAL 100 MCG/2 ML VIAL IVP PRN
[2021-04-03 07:57] LABS: HEMATOCRIT 28.6 % (39.0-53.0); HEMOGLOBIN 9.2 g/dL (13.0-17.5); RED BLOOD COUNT 3.24 x10^6/uL (4.30-5.70); RED CELL DISTRIBUTION WIDTH 18.7 % (11.5-14.5)
[2021-04-03 08:13] LABS: CALCIUM 8.7 mg/dL (8.5-10.1); CREATININE 1.2 mg/dL (0.7-1.3); GFR 64.9; POTASSIUM 4.5 mmol/L (3.5-5.1)
[2021-04-03] MEDS ORDERED: LIDOCAINE 1% Multi-Dose 20 ML VIAL. ONE (08:15)
[2021-04-03] MEDS ORDERED: IODIXANOL 320 MG/ML 100 ML VIAL. ONE (08:15)
[2021-04-03 08:16] VITALS: BP 134/64
[2021-04-03] MEDS ORDERED: HEPARIN for ARTERIAL LINE 1,500 ML ONE (08:16)
[2021-04-03] MEDS ORDERED: FURO40TA4 PO (08:31)
[2021-04-03] MEDS ORDERED: PREG200C PO (08:31)
[2021-04-03] MEDS ORDERED: CRESTOR40 MG PO (08:31)
[2021-04-03] MEDS ORDERED: POTA10TA12 PO (08:31)
[2021-04-03] MEDS ORDERED: GLYCOPYRROLATE 1 MG/5 ML VIAL. ONE (09:00)
[2021-04-03] MEDS ORDERED: MIDAZOLAM HCL/PF 2 MG/2 ML VIAL. ONE (09:08)
[2021-04-03] MEDS ORDERED: KETAMINE HCL IN NACL, ISO-OSM 50 MG/5 ML SYRINGE ONE (09:08)
[2021-04-03] MEDS ORDERED: LIDOCAINE 2% TOPICAL JELLY 30GM TUBE. TP ONE (09:15)
[2021-04-03] MEDS ORDERED: LIDOCAINE 2% VISCOUS 15 ML SOLUTION. ONE (09:15)
[2021-04-03] MEDS ORDERED: BENZOCAINE ONE 20% MUCOSAL SPRAY. (09:16)
[2021-04-03] MEDS ORDERED: HEPARIN for IV BOLUS 10,000 UNIT/10 ML VIAL. ONE (09:30)
[2021-04-03] MEDS ORDERED: VERAPAMIL 5 MG/2 ML VIAL. ONE (09:30)
[2021-04-03] MEDS ORDERED: NITROGLYCERIN 200 MCG/2 ML SYRINGE FOR CATH/VASC LAB. ONE ×2 (09:30→10:23)
[2021-04-03] MEDS ORDERED: IODIXANOL 320 MG/ML 100 ML VIAL. IART ONE (09:45)
[2021-04-03] MEDS ORDERED: BENZOCAINE ONE 20% MUCOSAL SPRAY. MM (09:45)
[2021-04-03] MEDS ORDERED: LIDOCAINE 2% JELLY 6ML IN APPLICATOR. MM ONE (09:45)
[2021-04-03] MEDS ORDERED: LIDOCAINE 2% VISCOUS 15 ML SOLUTION. SWSW ONE (09:45)
[2021-04-03] MEDS ORDERED: LIDOCAINE 1% Multi-Dose 20 ML VIAL. INJ ONE (09:45)
[2021-04-03] MEDS ORDERED: HEPARIN for IV BOLUS 10,000 UNIT/10 ML VIAL. IART ONE (09:45)
[2021-04-03] MEDS: NITROGLYCERIN 200 MCG/2 ML SYRINGE FOR CATH/VASC LAB. IART ONE ×2 (10:01→10:30)
[2021-04-03] MEDS: VERAPAMIL 5 MG/2 ML VIAL. IART ONE ×2 (10:01→10:30)
[2021-04-03] MEDS ORDERED: fentaNYL PF VIAL 100 MCG/2 ML VIAL ONE (10:46)
[2021-04-03 10:56] VITALS: BP 120/82
[2021-04-03] MEDS ORDERED: PROPOFOL 10 MG/ML (20ML) VIAL. IV ONE ×4 (11:11)
--- NOTE | 2021-04-03 11:26 | CARD ---
MR#: [id number] Date of Study: 04/03/2021 Ordering Physician: BONITA CH, Referring Physician: BONITA CH, Tech: RT Marilyn(R)() APPROVED REPORT Technologist: RT Marilyn(R)() Nurse: Tami Ayoub RN Procedure(s) performed: FL TIME: 6.0 MINS DOSE: 92 GYCM2 CONTRAST: 91 ML RHC, LHC, Aortic valve study Coronary angiography HISTORY The patient is a 45 year-old male with a history of : chronic lung disease, tobacco history() , hyper tension, dyslipidemia. INDICATION The indication(s) include : dyspnea, valvular heart disease. CS Clinical Frailty Scale [facility] Clinical Frailty Scale: Moderately Frail Heart Failure Heart Failure: Yes If Yes, Newly Diagnosed: No If Yes, HF Type: Diastolic If Yes, NYHA Class: Class III CASE TECHNIQUE IV conscious sedation was used throughout procedure with appropriate monitoring and was performed in the presence of a registered nurse who was an independent trained observer other than the physician p erforming the procedure. During this case, Fluoroscopy and low osmolar contrast were used for imaging . Specimen(s) Removed: N/A Estimated Blood loss: 20 cc's. PROCEDURE NARRATIVE Clinical information: 45-year-old man with significant past medical history including hypertension, morbid obesity and prio r history of lung disease presented to the catheterization laboratory for further evaluation of aorti c valve disease. Procedure details: After appropriate informed consent the right wrist, right arm and left wrist were prepped and draped in usual sterile fashion. Under 1% lidocaine local anesthesia and ultrasound guidance a 6 Polish she ath was placed in the bilateral radial arteries via the Seldinger technique. Next, a 5 Polish sheath was placed in the right brachial vein via ultrasound guidance under 1% lidocaine local anesthesia an d a micropuncture kit. Diagnostic angiography was performed with a 6 Polish JR4 catheter, 5 Polish PA catheter. Aortic valv e study was performed with a JR4 catheter in the LV and a JR4 catheter in the ascending aorta. At case completion all catheters were removed and hemostasis was achieved in the bilateral radial art eries with a [employer] radial band. The right brachial vein sheath was removed and hemostasis was achie celina with manual compression. No acute complications are noted. The case was completed under anesthesia support as the patient als o underwent a LAVELLE prior to the cardiac catheterization. Please see anesthesia report for full detail s of sedation. Findings: Right heart catheterization: RA 21 mmHg RV 70/20/23 PA 64/48/29 PCWP 29 PA saturation 68% Arterial saturation 98% Samuel cardiac output: 7.1 L/min Aortic valve study: Aortic valve gradient: 32 mmHg aortic valve area: 1.1 cm2 Coronary angiography: Left main: Patient has congenital agenesis of the left main. The LAD and LCx arise from the right cor onary cusp. LAD: Large caliber vessel with mild luminal irregularities. LCx: Moderate caliber vessel with normal angiographic appearance. RCA: Large caliber dominant vessel with normal angiographic appearance. Conclusion 1. Severe biventricular pressure overload 2. Severe secondary pulmonary hypertension 3. Normal cardiac output 4. Moderate aortic stenosis, mean gradient 32 mmHg with aortic valve area 1.1 cm2 5. No significant coronary artery disease Recommendations 1. We will plan for aggressive diuresis and weight loss measures. Ultimately, he may require a dangelo scatheter aortic valve replacement. Signed by : Bonita Ch, Electronically Approved : 04/03/2021 11:26:10
[2021-04-03] MEDS ORDERED: INSULIN LISPRO 100 UNIT/ML 3ML VIAL for OP,RR ONLY. SQ PRN (11:30)
[2021-04-03] MEDS ORDERED: FUROSEMIDE 20 MG/2 ML VIAL. ONE (11:36)
[2021-04-03] MEDS ORDERED: FUROSEMIDE 40 MG/4 ML VIAL. IVP ONE (12:30)
[2021-04-03] MEDS ORDERED: FUROSEMIDE 20 MG/2 ML VIAL. IVP ONE (13:15)
[2021-04-03] MEDS ORDERED: HYDR-2769 PO (13:17)
[2021-04-03] MEDS ORDERED: HYDROcodone/APAP 10/325 1 TAB TABLET PO ONE (13:45)
[2021-04-03 15:50] VITALS: BP 169/49
--- NOTE | 2021-04-04 12:58 | CARD ---
MR#: [id number] Date of Study: 04/03/2021 Ordering Physician: BONITA SHELTON, Referring Physician: BONITA SHELTON, Tech: Shannan Cordoba, [facility] APPROVED REPORT EXAM: Two-dimensional and M-mode echocardiogram with Doppler and color Doppler. INDICATION Aortic Valve Disease Echo Enhancing Agent Indication: Rule Out Septal Defect Agent/Amount Used: Agitated Saline 10mL Aortic Valve AoV Peak Juan M.353.6cm/sAoV VTI84.1cm AO Peak GR.50.0mmHgAO Mean GR.32mmHg Reason For Test : Rule out Intracardiac Thrombus. PROCEDURE After obtaining informed consent, patient underwent transesophageal echo in the [facility]. Type of Sedation : General Anesthesia Sedation was administered by . Sedation was achieved with Ketamine 10mg intravenously. Sedation was achieved with Propofol 60mg intravenously. Transesophageal probe was inserted and advanced into esophagus by Andrews Shelton MD. Echo enhancement indication: R/O Septal defect. Echo enhancement agent administered: Agitated Saline The LAVELLE was performed without complications. Throughout the procedure, the blood pressure, pulse oximetry, cardiac rhythm, and rate were monitored . The patient tolerated the procedure without adverse effects. Recovery from general anesthesia was une ventful and vital signs were stable. LEFT VENTRICLE The left ventricle is normal size. There is mild concentric left ventricular hypertrophy. The left ve ntricular systolic function is normal and the ejection fraction is within normal range. The Ejection Fraction is 55%. There is normal LV segmental wall motion. No left ventricle thrombus noted on this s tudy. RIGHT VENTRICLE The right ventricle is normal size. There is normal right ventricular wall thickness. The right ventr icular systolic function is normal. ATRIA The left atrium size is normal. The right atrium size is normal. The interatrial septum is intact wit h no evidence for an atrial septal defect or patent foramen ovale as noted on 2-D or Doppler imaging. There is no thrombus noted in the left atrial appendage. AORTIC VALVE The aortic valve is calcified and displays decreased opening. Doppler and Color Flow revealed no sign ificant aortic regurgitation. There is moderate valvular aortic stenosis with a mean gradient of 33 m mHg. MITRAL VALVE The mitral valve is normal in structure and function. There is no evidence of mitral valve prolapse. There is no mitral valve stenosis. Doppler and Color Flow revealed no mitral valve regurgitation note d. TRICUSPID VALVE The tricuspid valve is normal in structure and function. Doppler and Color Flow revealed trace tricus pid regurgitation. There is no tricuspid valve stenosis. PULMONIC VALVE Doppler and Color Flow revealed no pulmonic valvular regurgitation. There is no pulmonic valvular [place] nosis. GREAT VESSELS The aortic root is normal in size. The IVC is normal in size and collapses >50% with inspiration. PERICARDIAL EFFUSION There is no pleural effusion. Critical Notification Critical Value: No <Conclusion> The left ventricular systolic function is normal and the ejection fraction is within normal range. Th e Ejection Fraction is 55%. There is normal LV segmental wall motion. There is no thrombus noted in the left atrial appendage. There is moderate valvular aortic stenosis with a mean gradient of 33 mmHg. Signed by : Bonita Shelton, Electronically Approved : 04/04/2021 12:58:22
== END 2021-04-03 16:15 | disposition home or self-care (01) ==
LOC: CCL 06:39
PROVIDERS: ATTEND Internal Medicine Cardiovascular Disease
DX: I35.0 Nonrheumatic aortic (valve) stenosis (principal); I38 Endocarditis, valve unspecified; R06.00 Dyspnea, unspecified; E66.01 Morbid (severe) obesity due to excess calories; I27.20 Pulmonary hypertension, unspecified; E78.00 Pure hypercholesterolemia, unspecified; J44.9 Chronic obstructive pulmonary disease, unspecified; K21.9 Gastro-esophageal reflux disease without esophagitis; M06.9 Rheumatoid arthritis, unspecified; E11.9 Type 2 diabetes mellitus without complications; F41.9 Anxiety disorder, unspecified; F32.9 Major depressive disorder, single episode, unspecified; G47.30 Sleep apnea, unspecified; Z79.82 Long term (current) use of aspirin; Z79.899 Other long term (current) drug therapy; Z72.89 Other problems related to lifestyle; Z98.890 Other specified postprocedural states
CPT/HCPCS: 36415; 76937; 80048; 82962; 85027; 85610; 93306; 93312; 93460; C1769; C1773; C1894; J1644; J1815; J1940; J2250; J2704; J3010; J3490; Q9967; 93320